=== PATIENT | female | born 1960 | race Caucasian/White ===

== ENCOUNTER → 2018-01-10 09:34 | Outpatient (CLI) | payer OTHER, SELFPAY ==
[2018-01-10 12:34] LABS: Thyroid Stim Hormone (TSH) 1.88 uIU/mL (0.358-3.74)
== END ==
PROVIDERS: Family Provider Family Medicine; PCP Family Medicine; Referring Provider Family Medicine; Visit Provider Family Medicine
DX: E03.9 Hypothyroidism, unspecified (principal)
CPT/HCPCS: 36415; 84443

== ENCOUNTER → 2018-02-16 08:04 | Outpatient (CLI) | payer OTHER, SELFPAY ==
--- NOTE | 2018-02-16 08:07 | BI_ITS ---
MAMMOGRAPHY - BILATERAL SCREENING REASON FOR EXAM: Female, 57 years old. Routine annual screening examination. PERTINENT HISTORY: Mother with breast cancer. TECHNIQUE: Digital bilateral breast dennis (3D mammographic acquisition) in the CC and MLO projections. 2-D mediolateral oblique (MLO) and craniocaudad (CC) views of both breasts were obtained. CAD: Full Field Digital Mammography with Computer Added Detection was performed. COMPARISON: Comparison is made with prior study dated January 24, 2017 and November 19, 2015. FINDINGS: Breast Composition: There are scattered areas of fibroglandular density. There are no dominant masses or suspicious calcifications. Stable 5 mm well-defined nodule in the upper deep lateral aspect of the left breast. This most likely represents a small left No other significant abnormalities are identified. There has been no significant change since the prior study. BI/SCREENING MAMM (CAD), BILAT IMPRESSION: Stable bilateral screening mammogram. Yearly follow-up mammogram recommended. (A) ASSESSMENT CATEGORY: BIRADS Category 2: Benign. A letter regarding these results will be sent to the patient by the facility within 30 days. Approximately 10% of breast cancers are not detected by mammography. A normal mammogram should not delay biopsy of a clinically suspicious abnormality. [id number] Electronically Signed: Kai Ho MD at 9:57 EST Tel [phone], Service support ,
== END ==
PROVIDERS: Family Provider Family Medicine; PCP Family Medicine; Referring Provider Obstetrics & Gynecology; Visit Provider Obstetrics & Gynecology
DX: Z12.31 Encounter for screening mammogram for malignant neoplasm of breast (principal)
CPT/HCPCS: 77063; 77067

== ENCOUNTER → 2019-01-31 | Outpatient (CLI) | payer OTHER, SELFPAY ==
[2017-04-25 09:29] VITALS: BMI 27.8
--- NOTE | 2019-01-31 09:54 | RAD_ITS ---
STUDY: X-RAY - LEFT FOOT CLINICAL: Female, 58 years old. Trauma TECHNIQUE: 3 view(s) of the foot. COMPARISON: None. FINDINGS: Normal talus, calcaneus, and tarsal bones. Normal visualized subtalar, talonavicular, calcaneocuboid, tarsal and tarsometatarsal articulations. Normal metatarsi. Normal metatarsophalangeal joint of the great toe. Normal tibial and fibular sesamoid bones. Normal interphalangeal joint of the great toe. Normal phalanges of the great toe. Normal second through fifth metatarsophalangeal joints. Normal interphalangeal joints and phalanges of the lesser toes. The soft tissue structures are unremarkable. RAD/Foot min 3 Views IMPRESSION: Normal x-ray examination of the foot. Electronically Signed: Jeremiah Bejarano MD at 23:13 EDT , Service support ,
== END | disposition home or self-care (01) ==
LOC: MTRAD 09:53
PROVIDERS: Family Provider Family Medicine; PCP Family Medicine; Referring Provider Family Medicine; Visit Provider Family Medicine
DX: S99.922A Unspecified injury of left foot, initial encounter (principal); W19.XXXA Unspecified fall, initial encounter
CPT/HCPCS: 73630

== ENCOUNTER → 2019-03-15 12:09 | Outpatient (CLI) | payer OTHER, SELFPAY ==
--- NOTE | 2019-03-15 12:11 | BI_ITS ---
MAMMOGRAPHY - BILATERAL SCREENING REASON FOR EXAM: Female, 58 years old. Routine annual screening examination. PERTINENT HISTORY: Mother with breast cancer. TECHNIQUE: Digital bilateral breast hawa (3D mammographic acquisition) in the CC and MLO projections. 2-D mediolateral oblique (MLO) and craniocaudad (CC) views of both breasts were obtained. CAD: Full Field Digital Mammography with Computer Added Detection was performed. COMPARISON: Comparison is made with prior study dated February 16, 2018 and January 24, 2017. FINDINGS: Breast Composition: There are scattered areas of fibroglandular density. There are no dominant masses or suspicious calcifications. Stable small benign-appearing bilateral axillary lymph nodes. No other significant abnormalities are identified. There has been no significant change since the prior study. BI/SCREEN MAMM (CAD) W/HAWA BILAT IMPRESSION: Stable bilateral screening mammogram. Yearly follow-up mammogram recommended. (A) ASSESSMENT CATEGORY: BIRADS Category 2: Benign. A letter regarding these results will be sent to the patient by the facility within 30 days. Approximately 10% of breast cancers are not detected by mammography. A normal mammogram should not delay biopsy of a clinically suspicious abnormality. [id number] Electronically Signed: Kai Ho, at 13:10 EST , Service support ,
== END ==
PROVIDERS: Family Provider Family Medicine; PCP Family Medicine; Referring Provider Obstetrics & Gynecology; Visit Provider Obstetrics & Gynecology
DX: Z12.31 Encounter for screening mammogram for malignant neoplasm of breast (principal)
CPT/HCPCS: 77063; 77067

== ENCOUNTER → 2019-04-19 08:45 | Outpatient (CLI) | payer OTHER, SELFPAY ==
[2017-04-25 09:29] VITALS: BMI 27.8
[2019-04-19 11:26] LABS: Anion Gap 5 (5-15); BUN 21 mg/dL (7-18); BUN/Creat Ratio 24.6 RATIO (10-20); Calcium,Total 9.3 mg/dL (8.5-10.1); Chloride 109 mmol/L (98-107); Cholesterol 196 mg/dL (200); Creatinine, Serum 0.85 mg/dL (0.55-1.02); EST Glomerular Filtration Rate 72 mL/min (>60); Est Glom Filt Rate - Afr Amer 87 mL/min (>60); Free T3 2.1 pg/mL (2.18-3.98); Glucose 84 mg/dL (74-106); High Density Lipoprotein 51 mg/dL; Sodium Level 142 mmol/L (136-145); T4 Total, Thyroxin 10.4 ug/dL (4.8-13.9); Thyroid Stim Hormone (TSH) 2.06 uIU/mL (0.358-3.74); Triglycerides 115 mg/dL; Very Low Density Lipoprotein 23 mg/dL (5-40)
== END ==
PROVIDERS: Family Provider Family Medicine; PCP Family Medicine; Referring Provider Family Medicine; Visit Provider Family Medicine
DX: E03.9 Hypothyroidism, unspecified (principal); E78.00 Pure hypercholesterolemia, unspecified
CPT/HCPCS: 36415; 80048; 80061; 84436; 84443; 84481

== ENCOUNTER → 2019-09-20 15:05 | Outpatient (CLI) | payer OTHER, SELFPAY ==
[2017-04-25 09:29] VITALS: BMI 27.8
[2019-09-20 18:12] LABS: Cholesterol 209 mg/dL (200); Free T3 2.1 pg/mL (2.18-3.98); High Density Lipoprotein 54 mg/dL; T4 Total, Thyroxin 9.4 ug/dL (4.8-13.9); Thyroid Stim Hormone (TSH) 2.64 uIU/mL (0.358-3.74); Triglycerides 186 mg/dL; Very Low Density Lipoprotein 37 mg/dL (5-40)
== END ==
PROVIDERS: PCP Family Medicine; Visit Provider Family Medicine
DX: E03.9 Hypothyroidism, unspecified (principal); E78.00 Pure hypercholesterolemia, unspecified
CPT/HCPCS: 36415; 80061; 84436; 84443; 84481

== ENCOUNTER 2020-03-25 08:42 | Emergency (ER) | payer OTHER, SELFPAY ==
[2020-03-25 08:42] VITALS: BP 141/78; PULSE 68; RESP 13; TEMP 36.6; O2SAT 100; BMI 26.0
--- NOTE | 2020-03-25 08:53 | EKG12_ITS ---
Test Reason : CP Blood Pressure : / mmHG Vent. Rate : 065 BPM Atrial Rate : 065 BPM P-R Int : 164 ms QRS Dur : 088 ms QT Int : 376 ms P-R-T Axes : 052 059 061 degrees QTc Int : 391 ms Normal sinus rhythm Normal ECG Confirmed by PRITI GOYAL, CHANDANA ([id number]), field map editor LENORE CARMONA ([id number]) on 04/01/2020 10:23:59 AM Referred By: [place] Confirmed By:SACHA MARCOS MD
--- NOTE | 2020-03-25 08:53 | CT_ITS ---
STUDY: CT BRAIN WITHOUT CONTRAST REASON FOR EXAM: Female, 59 years old. VERTIGO-FALLING TO THE LEFT DIZZINESS/CHEST HEAVY RADIATION DOSAGE (If Supplied By Facility): CTDIvol = ( 44.99 ) mGy, DLP = ( 796.11 ) mGycm TECHNIQUE: Transaxial CT imaging of the brain was performed without administration of intravenous contrast material. Individualized dose optimization techniques were used for this CT. COMPARISON: 04/25/2017 FINDINGS: Normal soft tissue structures. Normal calvarium. Normal size ventricles and extra-axial spaces for the patient''s age. Normal white matter tracts of the cerebral hemispheres. Normal basal ganglia and thalami. Normal brainstem. Normal cerebellum. There is no intracranial hemorrhage. There are no findings of an acute ischemic infarction. Normal visualized paranasal sinuses. CT/Brain/Head without Contrast IMPRESSION: Normal unenhanced CT scan of the brain. Electronically Signed: Ollie Spicer MD at 9:31 EST Tel , Service support ,
[2020-03-25 09:05] LABS: Absolute Lymphocyte Count 1.28 X10^3/uL (0.83-4.51); Absolute Neutrophil Count 2.8 X10^3/uL (2.0-7.7); Basophil# 0.05 X10^3/uL; Eosinophil# 0.17 X10^3/uL; Eosinophils% 3.4 % (0-5); Hematocrit 43.2 % (37-47); Hemoglobin 13.8 g/dL (12.0-15.0); Lymphocyte # 1.28 X10^3/ul (4.0); Mean Corp Hgb Conc 31.9 g/dL (32-36); Mean Corpuscular Hgb 32.2 pg (27.0-32.0); Mean Corpuscular Volume 100.7 fL (81-99); Mean Platelet Vol. 9.2 fl (6.2-12.0); Monocyte# 0.61 X10^3/uL; Monocyte% 12.4 % (0-10); NRBC Flagged by Analyzer 0 % (0-5); Neutrophil # 2.82 X10^3/uL (2.7-7.7); Neutrophil % 57.2 % (47-70); Platelet Count 188 K/mm3 (150-450); RBC Distribution Width CV 12.7 % (11.6-14.6); RBC Distribution Width SD 47.5 fl (35.1-43.9); Red Blood Count 4.29 M/mm3 (4.2-5.4); White Blood Count 4.9 K/mm3 (4.4-11.0)
[2020-03-25 09:20] LABS: Anion Gap 3 (5-15); BUN 22 mg/dL (7-18); BUN/Creat Ratio 23.6 RATIO (10-20); Calcium,Total 9.5 mg/dL (8.5-10.1); Chloride 108 mmol/L (98-107); Creatinine, Serum 0.93 mg/dL (0.55-1.02); EST Glomerular Filtration Rate 65 mL/min (>60); Est Glom Filt Rate - Afr Amer 79 mL/min (>60); Estimated Creatinine Clearance 54.86 ml/min; Glucose 91 mg/dL (74-106); Potassium 3.9 mmol/L (3.5-5.1); Sodium Level 141 mmol/L (136-145)
[2020-03-25 09:42] VITALS: BP 149/87; PULSE 73; RESP 14; O2SAT 99
--- NOTE | 2020-03-25 09:45 | ED.DCSUM_ITS ---
History of Present Illness Chief Complaint: Chest Pain Detail of Chief Complaint: Dizziness, near syncope/syncope chest pain and numbness left hand Informant: Patient Onset: Today Context: Sudden Onset Timing: Intermittent Quality: Spinning and sensation of falling to the left with other symptoms previousl Location: Driving her vehicle Current Severity: - - Resolved Maximum Severity: Moderate Worsened by: Nothing Relieved by: Nothing Associated Symptoms: Vision went black is an additional symptom Narrative: Patient is a 59-year-old woman with history of hypothyroidism and hypercholesterolemia who presents because she developed abrupt onset of spinning sensation and sensation of falling to the left while driving. She states her vision went black. She then developed numbness in her left hand followed by a sharp stabbing midsternal chest discomfort without radiation. The chest discomfort was associated with shortness of breath. She denied nausea or vomiting. She denied diaphoresis. She denies history of coronary disease. She denies history of TIA or CVA. She was by herself. She is uncertain whether she had change in speech. She denies difficulty swallowing or breathing. She denies history of peripheral arterial disease. Presently she has no symptoms. Prior similar symptoms: Yes - Feeling lightheaded with change in vision remote past Recent Illness/Hospitalization: No - Past Medical History (1) Hyperlipidemia Status: Chronic (2) Colitis Status: Resolved (3) Hypothyroidism Status: Chronic Past Medical History - Allergies and Home Meds Allergies/Adverse Reactions: Allergies No Known Allergies Allergy (Verified 03/25/20 08:44) Primary Care Physician: Chago Valles MD [Primary Care Provider] - Prior records reviewed: Yes Surgical History: - - colonoscopy in the past, hysterectemy. Lives: Spouse/ Significant Other Smoking Status: Never smoker Alcohol: None Drugs: None - Family History Maternal Family History: Reports: Diabetes, Heart Disease Paternal Family History: Reports: - - emphysema in father who smoked. Review of Systems General: Denies: Chills, Fever, Malaise, Subjective Eyes: Reports: - - Her vision went black biocular. Denies: Visual changes - bilaterally, Blurred Vision - bilaterally, Diplopia ENT: Reports: - - She denies decreased hearing or ringing in her ears.. Denies: Bilateral ear pain, Rhinorrhea, Sore throat Cardiovascular: Reports: Chest pain. Denies: Palpitations, Heart racing Respiratory: Reports: Dyspnea. Denies: Cough, Sputum, Dyspnea on exertion, Orthopnea, Paroxysmal nocturnal dyspnea Gastrointestinal: Denies: Abdominal pain, Vomiting, Diarrhea, Melena, Hematochezia Musculoskeletal: Denies: Myalgias, Arthralgias, Neck pain, Back pain, Swelling, Extremity Pain Skin: Denies: Rash, Wounds Neurological: Reports: Parasthesia - Left hand only. Denies: Headache, W eakness, Numbness Psych: Denies: Depression Endocrine: Denies: Polyuria, Polydipsia Hematologic: Denies: Easy bruising Physical Exam Vital Signs/Narrative: Vital Signs Temp Pulse Resp BP Pulse Ox 03/25/20 08:42 98 F 68 13 141/78 H 100 Inital Vital Signs reviewed: Yes General: Well nourished, Well developed, No Acute Distress Head: Normocephalic, Atraumatic Eyes: Perrl, EOMI. Negative for: Pale conjunctiva, Scleral icterus ENT: Moist mucous membranes, No rhinorrhea. Negative for: Nasal congestion, Sinus tenderness Neck: Supple, Nontender, No lymphadenopathy, No JVD Cardiovascular: Regular rate, Regular rhythm, No murmurs Respiratory: No distress, CTA bilaterally, Chest nontender Abdomen: Soft, Nontender, Nondistended, Normal bowel sounds, No masses. Negative for: Hepatomegaly, Splenomegaly, Pulsatile mass Rectal: Deferred Back: Nontender, Normal Inspection. Negative for: CVA tenderness Extremities: Negative for: Nontender, No edema, Calf Tenderness Skin: Normal color, No rash, No Trauma. Negative for: Cyanosis, Diaphoresis, Jaundice Neurological: Alert, Oriented x3, Cranial nerves II-XII grossly intact, Normal Strength, Normal Sensation, Normal DTR - There is no clonus or Babinski sign., Normal Gait, - - NIH is 0. Psychological: Normal affect Diagnostic/Tx/Re-eval Impressions Brain CT 03/25/20 08:53 IMPRESSION: Normal unenhanced CT scan of the brain. Electronically Signed: Ollie Spicer MD at 9:31 EST Tel , Service support , 03/25/20 08:53 Brain/Head without Contrast [CT] Stat Laboratory Results 03/25/20 03/25/20 08:55 08:55 WBC 4.9 RBC 4.29 Hgb 13.8 Hct 43.2 MCV 100.7 H MCH 32.2 H MCHC 31.9 L RDW Std Deviation 47.5 H RDW Coeff of Rosendo 12.7 Plt Count 188 MPV 9.2 Immature Gran % (Auto) 0.000 Neut % (Auto) 57.2 Lymph % (Auto) 26.0 [place] % (Auto) 12.4 H Eos % (Auto) 3.4 Baso % (Auto) 1.0 Absolute Neuts (auto) 2.8 Absolute Lymphs (auto) 1.28 Nucleated RBC % 0 Sodium 141 Potassium 3.9 Chloride 108 H Carbon Dioxide 30.0 Anion Gap 3 L BUN 22 H Creatinine 0.93 Estim Creat Clear Calc 54.86 Est GFR (MDRD) Af Amer 79 Est GFR (MDRD) Non-Af 65 BUN/Creatinine Ratio 23.6 H Glucose 91 Calcium 9.5 Troponin I < 0.015 ET of the head neck was negative for dissection or any evidence of atherosclero tic vascular disease. Since her vessels are wide open will discharge to home. She has an appointment to see Dr. Valles tomorrow. She is taking a baby aspirin a day. - EKG Initial EKG Interpretation: Sinus Rhythm - Normal sinus rhythm with ventricular rate of 65. TN intervals under 64 ms. Cures duration 88 ms. QT duration 376 ms. Jackson is normal. The EKG is normal. - Medical Decision Making Presents with transient vertigo. It is not positional. She also reported paresthesia of her left hand associate with chest pain. This may represent posterior vertebral EMEA. With complaint of chest pain need to rule out cardiac versus noncardiac etiology. Since pain did not radiate through the back and pulses are symmetric upper and lower extremity as well as right to left doubt aortic dissection. CT of the head was obtained and there is no evidence of hemorrhage or acute ischemic findings. First troponin is normal. EKG was normal. She was symptom-free when the EKG was performed. ED Disposition - Plan for ED Patient: Disposition: Acute [facility] Diagnosis: Vertigo, Left hand paresthesia, Atypical chest pain Instructions: ED Vertigo, Unspecified, ED Paraesthesias, ED Chest Pain, Uncertain Cause Referrals: Chago Valles MD [Primary Care Provider] - Keep Janessa appointment
--- NOTE | 2020-03-25 09:55 | CT_ITS ---
STUDY: CTA HEAD AND NECK WITH CONTRAST REASON FOR EXAM: Female, 59 years old. CHEST HEAVINESS AND DIZZINESS WHILE DRIVING. NUMBNESS LT HAND, SPINNING SENSATION, VISION WENT BLACK. RADIATION DOSAGE (If Supplied By Facility): CTDIvol = ( 17.140 ) mGy, DLP = ( 663.88 ) mGycm TECHNIQUE: CT angiography was performed with a multi-detector CT scanner. Data acquisition was obtained from the skull base through the vertex following intravenous administration of IV 100mL Isovue-370. MIP images were reconstructed from the axial data set. Post-processing of the angiographic images was performed, with multiplanar reformation and 3D reconstruction. Individualized dose optimization techniques were used for this CT. COMPARISON: No relevant priors. FINDINGS: Normal bilateral petrous carotid arteries. There is calcified plaque formation of the right cavernous carotid artery, without a cross-sectional luminal stenosis. There is calcified plaque formation of the left cavernous carotid artery, without a cross-sectional luminal stenosis. Normal right A1 segments of the anterior cerebral artery. Normal left A1 segments of the anterior cerebral artery. Normal intact anterior communicating artery (ACOM). Normal bilateral A2 segments of the anterior cerebral arteries. 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 Normal right M1 and M2 segments of the middle cerebral arteries, with a normal M1 bifurcation. Normal left M1 and M2 segments of the middle cerebral arteries, with a normal M1 bifurcation. Normal right posterior communicating artery (PCOM). Normal left posterior communicating artery (PCOM). Normal bilateral vertebral arteries. Normal basilar artery with a normal basilar bifurcation. The visualized bilateral superior cerebellar (SCA) arteries are normal. Normal bilateral P1, P2 and visualized P3 segments of the posterior cerebral arteries. Duplicated right posterior cerebral artery through a persistent origin. There is no demonstrated aneurysm of the [place] of [place]. There is no demonstrated abnormality of the visualized brain. AORTIC ARCH: Normal visualized aortic arch. Normal origins of the brachiocephalic, left common carotid, and left subclavian arteries. RIGHT CAROTID ARTERIES: Normal right common carotid artery (CCA). There is mild atherosclerotic plaque formation with minimal narrowing of the right carotid bulb. Normal origin of the right internal carotid (ICA) artery without a hemodynamically significant stenosis. Normal visualized cervical portion of the right internal carotid artery. Normal origin of the right external carotid artery (ECA). LEFT CAROTID ARTERIES: Normal left common carotid artery (CCA). Normal left common carotid bulb. Normal origin of the left internal carotid (ICA) artery without a hemodynamically significant stenosis. Normal visualized cervical portion of the left internal carotid artery. Normal origin of the left external carotid artery (ECA). VERTEBRAL ARTERIES: Normal bilateral vertebral arteries. CT/CTA Head AND Neck W/ Contrast IMPRESSION: Normal CTA Head and neck with contrast. Electronically Signed: Ollie Spicer MD at 10:46 EST Tel , Service support ,
[2020-03-25 10:00] VITALS: BP 148/85; PULSE 83; RESP 18; O2SAT 100
[2020-03-25 11:36] VITALS: BP 149/85; PULSE 71; RESP 18; O2SAT 99
== END 2020-03-25 11:37 | disposition home or self-care (01) ==
PROVIDERS: Emergency Provider Emergency Medicine; PCP Family Medicine
DX: R42 Dizziness and giddiness (principal); R20.2 Paresthesia of skin; R07.89 Other chest pain
CPT/HCPCS: 70450; 70496; 70498; 80048; 84484; 85025; 93005; 99284; Q9967; A4216

== ENCOUNTER → 2020-03-26 08:30 | Outpatient (CLI) | payer OTHER, SELFPAY ==
[2020-03-25 08:42] VITALS: BMI 26.0
[2020-03-26 11:04] LABS: Thyroid Stim Hormone (TSH) 2.22 uIU/mL (0.358-3.74)
== END ==
PROVIDERS: PCP Family Medicine; Referring Provider Family Medicine; Visit Provider Family Medicine
DX: E03.9 Hypothyroidism, unspecified (principal)
CPT/HCPCS: 36415; 84443

== ENCOUNTER → 2020-08-07 13:57 | Outpatient (CLI) | payer OTHER, SELFPAY ==
[2020-08-07 16:08] LABS: ALB/GLOB Ratio 1.4 RATIO (0.9-2.4); AST(SGOT) 27 U/L (15-37); Alanine Aminotransfer ALT/SGPT 55 U/L (13-56); Albumin, Serum 4.2 g/dL (3.2-5.0); Alkaline Phosphatase 56 U/L (45-117); Anion Gap 5 (5-15); BUN 18 mg/dL (7-18); BUN/Creat Ratio 22.3 RATIO (10-20); Calcium,Total 9.3 mg/dL (8.5-10.1); Chloride 105 mmol/L (98-107); Cholesterol 212 mg/dL (200); Creatinine, Serum 0.81 mg/dL (0.55-1.02); EST Glomerular Filtration Rate 77 mL/min (>60); Est Glom Filt Rate - Afr Amer 93 mL/min (>60); Free T3 2.3 pg/mL (2.18-3.98); Globulin 3.1 g/dL (2.2-4.2); Glucose 68 mg/dL (74-106); High Density Lipoprotein 57 mg/dL; Potassium 4.4 mmol/L (3.5-5.1); Protein, Total 7.3 g/dL (6.4-8.2); Sodium Level 139 mmol/L (136-145); T4 Free Direct 1.08 ng/dL (0.76-1.46); Thyroid Stim Hormone (TSH) 1.53 uIU/mL (0.358-3.74); Triglycerides 115 mg/dL; Very Low Density Lipoprotein 23 mg/dL (5-40)
== END ==
PROVIDERS: PCP Family Medicine; Referring Provider Family Medicine; Visit Provider Family Medicine
DX: E03.9 Hypothyroidism, unspecified (principal); E78.00 Pure hypercholesterolemia, unspecified
CPT/HCPCS: 36415; 80053; 80061; 84439; 84443; 84481

== ENCOUNTER → 2020-09-11 07:52 | Outpatient (CLI) | payer OTHER, SELFPAY ==
--- NOTE | 2020-09-11 07:55 | BI_ITS ---
MAMMOGRAPHY - BILATERAL SCREENING REASON FOR EXAM: Female, 60 years old. Routine annual screening examination. PERTINENT HISTORY: Mother with breast cancer. TECHNIQUE: Digital bilateral breast hawa (3D mammographic acquisition) in the CC and MLO projections. 2-D mediolateral oblique (MLO) and craniocaudad (CC) views of both breasts were obtained. CAD: Full Field Digital Mammography with Computer Added Detection was performed. COMPARISON: Comparison is made with prior study dated 03/15/2019 and 02/16/2018. FINDINGS: Breast Composition: There are scattered areas of fibroglandular density. There are no dominant masses or suspicious calcifications. Stable small benign-appearing bilateral axillary lymph nodes. No other significant abnormalities are identified. There has been no significant change since the prior study. BI/SCRN MAMM (CAD)W/HAWA BILAT IMPRESSION: Stable bilateral screening mammogram. Yearly follow-up mammogram recommended. (A) ASSESSMENT CATEGORY: BIRADS Category 2: Benign. A letter regarding these results will be sent to the patient by the facility within 30 days. Approximately 10% of breast cancers are not detected by mammography. A normal mammogram should not delay biopsy of a clinically suspicious abnormality. [id number] Electronically Signed: Kai Ho MD at 8:49 EDT , Service support ,
== END ==
PROVIDERS: PCP Family Medicine; Referring Provider Obstetrics & Gynecology; Visit Provider Obstetrics & Gynecology
DX: Z12.31 Encounter for screening mammogram for malignant neoplasm of breast (principal)
CPT/HCPCS: 77063; 77067

== ENCOUNTER → 2020-11-26 08:04 | Outpatient (CLI) | payer OTHER, SELFPAY ==
[2020-11-26 11:42] LABS: ALB/GLOB Ratio 1.3 RATIO (0.9-2.4); AST(SGOT) 28 U/L (15-37); Alanine Aminotransfer ALT/SGPT 61 U/L (13-56); Alkaline Phosphatase 51 U/L (45-117); Anion Gap 6 (5-15); BUN 20 mg/dL (7-18); Chloride 106 mmol/L (98-107); Cholesterol 197 mg/dL (200); Creatinine, Serum 0.77 mg/dL (0.55-1.02); EST Glomerular Filtration Rate 81 mL/min (>60); Est Glom Filt Rate - Afr Amer 98 mL/min (>60); Free T3 2.4 pg/mL (2.18-3.98); Glucose 86 mg/dL (74-106); High Density Lipoprotein 53 mg/dL; Sodium Level 139 mmol/L (136-145); T4 Free Direct 1.04 ng/dL (0.76-1.46); Triglycerides 157 mg/dL; Very Low Density Lipoprotein 31 mg/dL (5-40)
== END ==
PROVIDERS: PCP Family Medicine; Referring Provider Family Medicine; Visit Provider Family Medicine
DX: E03.9 Hypothyroidism, unspecified (principal); E78.00 Pure hypercholesterolemia, unspecified
CPT/HCPCS: 36415; 80053; 80061; 84439; 84443; 84481

== ENCOUNTER 2021-07-12 08:09 | Outpatient (CLI) | payer OTHER, SELFPAY ==
[2021-07-12 11:09] LABS: ALB/GLOB Ratio 1.3 RATIO (0.9-2.4); AST(SGOT) 25 U/L (15-37); Alanine Aminotransfer ALT/SGPT 61 U/L (13-56); Albumin, Serum 3.8 g/dL (3.2-5.0); Alkaline Phosphatase 51 U/L (45-117); Anion Gap 3 (5-15); BUN 21 mg/dL (7-18); BUN/Creat Ratio 23.8 RATIO (10-20); Calcium,Total 9.1 mg/dL (8.5-10.1); Chloride 110 mmol/L (98-107); Cholesterol 174 mg/dL (200); Creatinine, Serum 0.88 mg/dL (0.55-1.02); EST Glomerular Filtration Rate 69 mL/min (>60); Est Glom Filt Rate - Afr Amer 83 mL/min (>60); Free T3 2.8 pg/mL (2.18-3.98); Glucose 95 mg/dL (74-106); High Density Lipoprotein 54 mg/dL; Potassium 3.9 mmol/L (3.5-5.1); Protein, Total 6.8 g/dL (6.4-8.2); Sodium Level 141 mmol/L (136-145); T4 Free Direct 0.81 ng/dL (0.76-1.46); Thyroid Stim Hormone (TSH) 2.18 uIU/mL (0.358-3.74); Triglycerides 116 mg/dL; Very Low Density Lipoprotein 23 mg/dL (5-40)
== END 2021-07-12 23:59 | disposition home or self-care (01) ==
PROVIDERS: PCP Family Medicine; Visit Provider Family Medicine
DX: E78.00 Pure hypercholesterolemia, unspecified (principal); E03.9 Hypothyroidism, unspecified
CPT/HCPCS: 36415; 80053; 80061; 84439; 84443; 84481

== ENCOUNTER → 2021-09-17 | Outpatient (CLI) | payer OTHER, SELFPAY ==
--- NOTE | 2021-09-17 13:41 | BI_ITS ---
MAMMOGRAPHY - BILATERAL SCREENING REASON FOR EXAM: Female, 61 years old. Routine annual screening examination. PERTINENT HISTORY: Mother with breast cancer. TECHNIQUE: Digital bilateral breast hawa (3D mammographic acquisition) in the CC and MLO projections. 2-D mediolateral oblique (MLO) and craniocaudad (CC) views of both breasts were obtained. CAD: Full Field Digital Mammography with Computer Added Detection was performed. COMPARISON: Mammogram from 09/11/2020, 03/15/2019, 02/16/2018, 01/24/2017 FINDINGS: Breast Composition: There are scattered areas of fibroglandular density. There are no dominant masses or suspicious calcifications. Stable small benign-appearing bilateral axillary lymph nodes. No other significant abnormalities are identified. There has been no significant change since the prior study. BI/SCRN MAMM (CAD)W/HAWA BILAT IMPRESSION: Stable bilateral screening mammogram. Yearly follow-up mammogram recommended. (A) ASSESSMENT CATEGORY: BIRADS Category 2: Benign. A letter regarding these results will be sent to the patient by the facility within 30 days. Approximately 10% of breast cancers are not detected by mammography. A normal mammogram should not delay biopsy of a clinically suspicious abnormality. [id number] Electronically Signed: Billy Baker, at 8:38 EDT ,
== END | disposition home or self-care (01) ==
LOC: OPBI 13:40
PROVIDERS: PCP Family Medicine; Referring Provider Obstetrics & Gynecology; Visit Provider Obstetrics & Gynecology
DX: Z12.31 Encounter for screening mammogram for malignant neoplasm of breast (principal)
CPT/HCPCS: 77063; 77067

== ENCOUNTER → 2022-01-04 | Outpatient (CLI) | payer OTHER, SELFPAY ==
--- NOTE | 2022-01-04 08:31 | STRESSREP_ITS ---
Stress Test Report Date: 01-04-2022 Procedure: Exercise tolerance test/imaging study Indications: Chest pain; shortness of breath/dyspnea with exertion Consent: Per the patient Procedure: The patient exercised on a Luis protocol for 7 minutes and 31 seconds completing Stage II and 1 minute and 31 seconds of Stage III achieving a peak heart rate of 137 bpm (87% predicted maximal heart rate) with a peak blood pressure 158/80 mmHg and a peak MET capacity of 9 METs. The baseline ECG demonstrated normal sinus rhythm. The peak exercise ECG demonstrated somatic/motion artifact with approximately [address] segment depression in leads II, III, and aVF with gradual resolution towards baseline in recovery. There were no cardiac dysrhythmias pretest, during exercise, or recovery. The functional capacity was considered good. There was chest tightness and shortness of breath at peak exercise. The examination was discontinued secondary to chest tightness and shortness of breath. Impression: 1. Technically adequate (percent predicted maximal heart rate greater than 85%) exercise tolerance test 2. Peak exercise ECG demonstrated somatic/motion artifact with approximately [address] segment depression in leads II, III, and aVF with gradual resolution towards baseline in recovery 3. There were no cardiac dysrhythmias pretest, during exercise, or recovery 4. Nuclear images pending Myocardial perfusion imaging study: Technique: The patient was injected with 12.0 mCi of technetium 99m Cardiolite and subsequently rest SPECT Cardiolite nuclear imaging was obtained in the horizontal long, vertical long, and short axis views. The patient exercised on a Luis protocol for 7 minutes and 31 seconds completing Stage II and 1 minute and 31 seconds of Stage III achieving a peak heart rate of 137 bpm (87% predicted maximal heart rate) with a peak blood pressure 158/80 mmHg and a peak MET capacity of 9 METs. The patient was injected with 34.3 mCi of technetium 99m Cardiolite and subsequently stress SPECT Cardiolite nuclear imaging was obtained in the horizontal long, vertical long, and short axis views. A gated Cardiolite study at peak stress was obtained. Interpretation: Rest and stress SPECT Cardiolite nuclear imaging status post realignment, normalization, and attenuation correction, demonstrates the appearance of relative uniform tracer uptake and myocardial perfusion appearing within normal limits. There is end systolic thickening and brightening. The gated Cardiolite study demonstrates myocardial thickening and inward wall motion. The reported LVEF is 74%. Impression: 1. Rest and stress SPECT Cardiolite nuclear imaging demonstrate relative uniform tracer uptake and myocardial perfusion appearing within normal limits. 2. The gated Cardiolite study reports an LVEF of 74%. This note was generated with [employer] software. It may contain incorrect words, spelling, and punctuation that were not noted in checking the note before signing.
== END | disposition home or self-care (01) ==
PROVIDERS: PCP Family Medicine; Referring Provider Family Medicine; Visit Provider Family Medicine
DX: R06.02 Shortness of breath (principal)
CPT/HCPCS: 78452; 93017; A9500; A4216

== ENCOUNTER → 2022-03-25 | Outpatient (CLI) | payer OTHER, SELFPAY ==
[2022-03-25 10:32] LABS: ALB/GLOB Ratio 1.3 RATIO (0.9-2.4); AST(SGOT) 22 U/L (15-37); Alanine Aminotransfer ALT/SGPT 57 U/L (13-56); Albumin, Serum 3.6 g/dL (3.2-5.0); Alkaline Phosphatase 52 U/L (45-117); Anion Gap 6 (5-15); BUN 20 mg/dL (7-18); Calcium,Total 8.7 mg/dL (8.5-10.1); Chloride 108 mmol/L (98-107); Cholesterol 187 mg/dL (200); Creatinine, Serum 0.91 mg/dL (0.55-1.02); EST Glomerular Filtration Rate 66 mL/min (>60); Est Glom Filt Rate - Afr Amer 80 mL/min (>60); Free T3 2.4 pg/mL (2.18-3.98); Globulin 2.7 g/dL (2.2-4.2); Glucose 94 mg/dL (74-106); High Density Lipoprotein 55 mg/dL; Potassium 4.2 mmol/L (3.5-5.1); Protein, Total 6.3 g/dL (6.4-8.2); Sodium Level 142 mmol/L (136-145); T4 Free Direct 0.87 ng/dL (0.76-1.46); Thyroid Stim Hormone (TSH) 2.83 uIU/mL (0.358-3.74); Triglycerides 122 mg/dL; Very Low Density Lipoprotein 24 mg/dL (5-40)
== END | disposition home or self-care (01) ==
LOC: MFPLAB 08:22
PROVIDERS: PCP Family Medicine; Referring Provider Family Medicine; Visit Provider Family Medicine
DX: E03.9 Hypothyroidism, unspecified (principal); E78.00 Pure hypercholesterolemia, unspecified
CPT/HCPCS: 36415; 80053; 80061; 84439; 84443; 84481

== ENCOUNTER → 2022-10-21 | Outpatient (CLI) | payer BC, SELFPAY ==
--- NOTE | 2022-10-21 14:46 | BI_ITS ---
MAMMOGRAPHY - BILATERAL SCREENING 3-D TOMOSYNTHESIS REASON FOR EXAM: Female, 62 years old. Routine screening PERTINENT HISTORY: Mother with breast cancer.. TECHNIQUE: 2-D mammograms and 3-D Tomosynthesis of the breast (s) were performed. CAD was performed. COMPARISON: 09/11/2020 FINDINGS: The breast composition is composed of scattered fibroglandular density. Scattered benign calcifications are seen. No dense spiculated masses or suspicious microcalcifications are identified. No architectural distortion is identified. There is no skin thickening or retraction. Stable 5 mm well-defined nodule in the upper outer quadrant of the left breast. There has been no significant change since the prior study. BI/SCRN MAMM (CAD)W/HAWA BILAT IMPRESSION: No mammographic signs of malignancy. Routine yearly mammograms recommended. ASSESSMENT CATEGORY: BIRADS Category 1: Negative. A letter regarding these results will be sent to the patient by the facility within 30 days. FOLLOW UP RECOMMENDATION: Yearly follow up mammogram recommended. (A) Approximately 10% of breast cancers are not detected by mammography. A normal mammogram should not delay biopsy of a clinically suspicious abnormality. Electronically Signed: Mikel Woo MD at 9:32 EDT ,
== END | disposition home or self-care (01) ==
LOC: OPBI 14:40
PROVIDERS: PCP Family Medicine; Referring Provider Obstetrics & Gynecology; Visit Provider Obstetrics & Gynecology
DX: Z12.31 Encounter for screening mammogram for malignant neoplasm of breast (principal)
CPT/HCPCS: 77063; 77067

== ENCOUNTER → 2023-05-31 | Outpatient (CLI) | payer BC, SELFPAY ==
--- NOTE | 2023-05-31 17:08 | RAD_ITS ---
STUDY: X-RAY - RIGHT SHOULDER REASON FOR EXAM: Female, 62 years old. PAIN TECHNIQUE: 4 view(s) of the shoulder. COMPARISON: None. FINDINGS: There is mild degenerative arthrosis of the glenohumeral articulation. There is mild degenerative arthrosis of the acromioclavicular joint without inferior osseous spur formation. Normal acromion. Possible osteopenia. Normal humeral head and visualized proximal humerus. The soft tissue structures are unremarkable. There is no demonstrated fracture. Normal visualized pulmonary apex. RAD/Shoulder min 2 Views IMPRESSION: Osteopenia with mild degenerative disease. No acute fracture or subluxation. Electronically Signed: Renée Cosme MD at 21:06 [facility] ,
--- OUTSIDE RECORDS SUMMARY | 2023-05-31 19:56 | XMS RPT_ITS | CCD ---
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 Name Role Phone TANISHA Unavailable Unavailable TANISHA Unavailable Unavailable TANISHA Unavailable Unavailable BRIANDA WHITMAN MD Unavailable Unavailable PROVIDER, UNKNOWN Unavailable Unavailable Vandana Nice Primary Care Provider [phone] Vandana Nice Primary Care Provider Chago Valles MD Primary Care Provider [phone] JOHANA GOLDMAN Attending Unavail able VANDANA NICE Primary Care Unavailable Allergies Allergy Classification Reported Allergen(s) Allergy Type Date of Onset Reaction(s) Facility (5 sources) Pethidine analog; Translations: [OPIOIDS-MEPERID INE AND RELATED] Drug Intolerance 1 Intolerance [facility] Work Phone: Medications Completed/Discontinued Medications Medication Drug Class(es) Dates Sig (Normalized) Sig (Original) ascorbic acid 100 mg oral tablet (4 sources) Vitamin C take 1 tablet by once daily Ascorbic Acid (VITAMIN C) 100 mg tablet Take 100 mg by mouth once daily. 0 Active Problems Problem Classification Problem Date Documented Da te Episodic/Chronic Other screening for suspected conditions (not mental disorders or infectious disease) (4 sources) Patient encounter status; Translations: [Encounter for screening mammogram for malignant neoplasm of breast] Episodic Results Test Name Value Interpretation Reference Range Facil ity Vital Signs Date Time Vital Sign Value Performing Clinician Faci litluna 02-23-2023 11:19-0500 Body height 162.6 cm Johana Hagen MD Work Phone: [facility] 02-23-2023 11:19-0500 Body weight 69.85 kg Johana Hagen MD Work Phone: [facility] 02-23-2023 11:19-0500 Diastolic blood pressure 82 mm[Hg] Johana Hagen MD Work Phone: [facility] 02-23-2023 11:19-0500 Systolic blood pressure 132 mm[Hg] Johana Hagen MD Work Phone: [facility] 08-27-2021 09:36-0400 Body height 162.6 cm Johana Hagen MD Work Phone: [facility] 08-27-2021 09:36-0400 Body weight 74.84 kg Johana Hagen MD Work Phone: [facility] 08-27-2021 09:36-0400 Diastolic blood pressure 84 mm[Hg] Johana Hagen MD Work Phone: [facility] 08-27-2021 09:36-0400 Systolic blood pressure 126 mm[Hg] Johana Hagen MD Work Phone: [facility] Encounters Encounter Date Encounter Type Care Provider Facility Start: 02-24-2023 Telephone encounter Johana Hagen MD Work Phone: [facility] [place] Procedures Date Procedure Procedure Detail Performing Clinician Start: 09-17-2021 Mammography Johana Hagen MD Work Phone: Start: 09-11-2020 Mammography Johana Hagen MD Work Phone: Plan of Treatment Date Care Activity Detail Author Start: 10-03-2024 COLOGUARD (FIT-DNA) COLOGUARD (FIT-DNA) [facility] Start: 10-03-2024 COLORECTAL CANCER SCREENING COLORECTAL CANCER SCREENING [facility] Start: 10-22-2023 Mammography Mammogram Screening [facility] Start: 12-09-2022 Covid-19 Vaccine () Covid-19 Vaccine () [facility] Start: 12-09-2022 Influenza vaccination [facility] Start: 09-17-2022 Mammography MAMMOGRAM [facility] Start: 04-10-2022 DEPRESSION ASSESSMENT DEPRESSION ASSESSMENT [facility] Start: 12-09-2021 Influenza [facility] Start: 10-08-2021 COVID-19 VACCINE (5 - Booster for Moderna series) COVID-19 VACCINE (5 - Booster for Moderna series) [facility] Start: 09-11-2021 Mammography MAMMOGRAM [facility] Start: 03-20-2020 Shingrix Vaccine (2 of 2) Shingrix Vaccine (2 of 2) [facility] Start: 2018 RSV Vaccine (1 - 1-dose 60+ series) RSV Vaccine (1 - 1-dose 60+ series) [facility] Start: 2008 SHINGRIX VACCINE (1 of 2) SHINGRIX VACCINE (1 of 2) [facility] Start: 07-29-2003 COLOGUARD (FIT-DNA) COLOGUARD (FIT-DNA) [facility] Start: 07-29-2003 Colonoscopy COLONOSCOPY [facility] Start: 07-29-2003 COLORECTAL CANCER SCREENING COLORECTAL CANCER SCREENING [facility] Start: 07-29-[address] COLONOGRAPHY [facility] Start: 07-29-2003 DIABETES SCREEN DIABETES SCREEN [facility] Start: 07-29-2003 Diabetes Screening Diabetes Screening [facility] Start: 07-29-2003 FECAL OCCULT BLOOD FECAL OCCULT BLOOD [facility] Start: 07-29-2003 Lipid 1996 panel - Serum or Plasma Lipid Screening [facility] Start: 07-29-2003 LIPID SCREEN LIPID SCREEN [facility] Start: 07-29-2003 SIGMOIDOSCOPY SIGMOIDOSCOPY [facility] Start: 1988 HPV TESTING HPV TESTING [facility] Start: 07-29-1979 PAP TESTING PAP TESTING [facility] Start: 1977 Urine microalbumin profile [facility] Start: 1976 HEPATITIS C SCREENING HEPATITIS C SCREENING [facility] Start: 1976 HIV SCREENING HIV SCREENING [facility] Start: 1970 Adult depression screening assessment DEPRESSION SCREENING [facility] COLOGUARD COLOGUARD Lab Ro utine Encounter for screening for malignant neoplasm of colon Ordered: 08/27/2021 [facility] Work Phone: Immunizations Immunization Date Immunization Notes Care Provider Viraj avendano 03-11-2020 influenza virus vacc ine, unspecified formulation Johana Hagen MD Work Phone: [facility] Payers Date Payer Category Payer Unknown [employer] PPO [id number] 2022-Present [phone] [address] [place] [address] PPO [id number] 2022 Unknown [id number] 2020 Unknown [employer] PPO [id number] 2020-Present [phone] [address] [place] [address] PPO [id number] Unknown [id number] Social History Date Type Detail Facility Start: 07-24-2020 Tobacco smoking stat [facility] Never smoked tobacco [facility] Work Phone: Start: 07-24-2020 Tobacco use and exposure Smokeless tobacco non-user [facility] Work Phone: Start: 08-27-2021 End: 02-23-2023 Alcohol intake Current drinker of alcohol (finding) [facility] Start: 1960 Sex Assigned At Not on file [facility] Start: 07-24-2021 End: 08-03-2021 Exposure to SARS-CoV-2 (event) Not sure [facility] Start: 02-23-2023 History of Social function [facility] Start: 02-23-2023 Tobacco use panel [facility] National Score (1-100), lower number is lower risk 76 [facility] Note 02-24-2023 Telephone Encounter - Catherine Conti RN - 02/24/2023 1:51 PM ESTTelephone Encounter - Jane Dinero - 02/24/2023 12:46 PM EST Note Date & Type Note Facility 02-24-2023 Miscellaneous Notes Formattin g of this note might be different from the original. Called and notified that the order was faxed along with the mammogram to [facility] yesterday. They were on the same order form. Patient will call [facility]. Catherine Conti RN Patient verified by name and . She is requesting to have an Bone Density order faxed to [facility]. Review and advise. documented in this encounter [facility] Progress note 02-23-2023 Note Date & Type Note Facility 02-23-2023 Note HNO ID: [id number] Author: Johana Goldman MD Service: ? Author Type: Physician Type: Progress Notes Filed: 02/23/2023 12:29 PM Note Text: Ditching Machine Engineer offered: Patient declines. Zohreh is a 62 year old who presents for an annual gynecologic exam with complaints, review bloodwork, concerns re blood glucose and CAD . Also concerned about hair loss. New onset breast cancer in [id number] - concerns re appropriate screening. Postmenopausal: hysterectomy, 2004. HRT use: No. Last Pap: normal HPV: negative History of abnormal pap: No Last mammogram: 2022 normal History of abnormal mammogram: No Sexually active: No History of fibroids: Yes, Exercise: 5-7 times a week for 45-60 minutes. Type: Treadmill AND walking, elliptical. Diet: Currently on a plant-based diet OB History T0 L1 SAB0 IAB0 Ectopic0 Multiple0 Live Births0 Comment: Son at age 4 from [facility] [employer] History LMP: Hysterectomy Age at Menarche: Age at First : Age at Menopause: [employer] History Comments: Sexual Activity: No sexual activity data on record; No partner data on record Contraception: No contraception data on record PAST MEDICAL HISTORY Diagnosis Date Elevated cholesterol Hypothyroidism Pre-diabetes PAST SURGICAL HISTORY Procedure Laterality Date TONSILLECTOMY AND ADENOIDECTOMY VAGINAL HYSTERECTOMY FAMILY HISTORY Problem Relation Age of Onset Breast Cancer Mother Diabetes Mother Emphysema Father Leukemia Son SOCIAL HISTORY Social History Tobacco Use Smoking status: Never Smokeless tobacco: Never Vaping Use Vaping Use: Never used Substance Use Topics Alcohol use: Yes Drug use: Never REVIEW OF SYSTEMS Abdomen: No abdominal pain, nausea, vomiting, diarrhea, or constipation. No bloating, early satiety, indigestion, or increased flatulence. Bladder: + stress incontinence. No dysuria, gross hematuria, urinary frequency, urinary urgency. Breast: No breast lumps, nipple d/c, overlying skin changes, redness or skin retraction Allergies and current medication updated:Yes EXAM: BP 132/82 Ht 5' 4 (1.63m) Wt 154 lb (69.9kg) BMI 26.42 kg/(m2). GENERAL: pleasant, female in no apparent distress HEENT: Normocephalic, atraumatic, mucus membranes moist, and no lesions NECK: Supple, full range of motion, no adenopathy, and thyroid normal DERMATOLOGY: Normal, without lesions, non-icteric, and non-hirsute BREAST: soft, non-tender, symmetric, no dominant mass, normal nipple-areolar complex, no lymphadenopathy, and no nipple discharge ABDOMEN: soft, non-tender, and no masses PELVIC: external genitalia normal, normal Bartholin's glands, urethra, [place]'s glands, no vulvar lesions, good vaginal support, physiologic discharge present, normal appearing perineal body and perianal region, cervix surgically absent BIMANUAL: no adnexal masses, non-tender, and uterus surgically absent RECTOVAGINAL: deferred. NEURO: alert and oriented x3,exam grossly non-focal EXTREMITIES: normal ASSESSMENT/PLAN: 1) Health maintenance: Pap/HPV screening no longer needed Mammogram ordered [facility] Mammogram up to date Nutrition, exercise and routine health maintenance exams reviewed. Calcium/Vitamin D supplementation information provided. Colon cancer screening: up to date with screening BMD: ordered 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 Zohreh is a 62 year old who presents for an annual gynecologic exam with complaints, review bloodwork, concerns re blood glucose and CAD . Also concerned about hair loss. New onset breast cancer in [id number] - concerns re appropriate screening. Postmenopausal: hysterectomy, 2004. HRT use: No. Last Pap: normal HPV: negative History of abnormal pap: No Last mammogram: 2022 normal History of abnormal mammogram: No Sexually active: No History of fibroids: Yes, Exercise: 5-7 times a week for 45-60 minutes. Type: Treadmill & walking, elliptical. Diet: Currently on a plant-based diet OB History T0 L1 SAB0 IAB0 Ectopic0 Multiple0 Live Births0 Comment: Son at age 4 from [facility] [employer] History LMP: Hysterectomy Age at Menarche: Age at First : Age at Menopause: [employer] History Comments: Sexual Activity: No sexual activity data on record; No partner data on record Contraception: No contraception data on record PAST MEDICAL HISTORY Diagnosis Date Elevated cholesterol Hypothyroidism Pre-diabetes PAST SURGICAL HISTORY Procedure Laterality Date TONSILLECTOMY & ADENOIDECTOMY <AGE 10 VAGINAL HYSTERECTOMY FAMILY HISTORY Problem Relation Age of Onset Breast Cancer Mother Diabetes Mother Emphysema Father Leukemia Son SOCIAL HISTORY Social History Tobacco Use Smoking status: Never Smokeless tobacco: Never Vaping Use Vaping Use: Never used Substance Use Topics Alcohol use: Yes Drug use: Never REVIEW OF SYSTEMS Abdomen: No abdominal pain, nausea, vomiting, diarrhea, or constipation. No bloating, early satiety, indigestion, or increased flatulence. Bladder: + stress incontinence. No dysuria, gross hematuria, urinary frequency, urinary urgency. Breast: No breast lumps, nipple d/c, overlying skin changes, redness or skin retraction Allergies and current medication updated:Yes EXAM: BP 132/82 Ht 5' 4 (1.63m) Wt 154 lb (69.9kg) BMI 26.42 kg/(m^2). GENERAL: pleasant, female in no apparent distress HEENT: Normocephalic, atraumatic, mucus membranes moist, and no lesions NECK: Supple, full range of motion, no adenopathy, and thyroid normal DERMATOLOGY: Normal, without lesions, non-icteric, and non-hirsute BREAST: soft, non-tender, symmetric, no dominant mass, normal nipple-areolar complex, no lymphadenopathy, and no nipple discharge ABDOMEN: soft, non-tender, and no masses PELVIC: external genitalia normal, normal Bartholin's glands, urethra, [place]'s glands, no vulvar lesions, good vaginal support, physiologic discharge present, normal appearing perineal body and perianal region, cervix surgically absent BIMANUAL: no adnexal masses, non-tender, and uterus surgically absent RECTOVAGINAL: deferred. NEURO: alert and oriented x3,exam grossly non-focal EXTREMITIES: normal ASSESSMENT/PLAN: 1) Health maintenance: Pap/HPV screening no longer needed Mammogram ordered [facility] Mammogram up to date Nutrition, exercise and routine health maintenance exams reviewed. Calcium/Vitamin D supplementation information provided. Colon cancer screening: up to date with screening BMD: ordered [facility] 2) Follow up one year or sooner as needed Johana Luna MD documented in this encounter [facility] Note 09-12-2022 Telephone Encounter - Becca Hernandes RN - 09/12/2022 9:30 AM EDT Note Date & Type Note Facility 09-12-2022 Miscellaneous Notes Formattin g of this note might be different from the original. Order for screening mammogram signed by DM and faxed to [facility]. Becca Hernandes RN documented in this encounter [facility] Instructions 08-27-2021 Patient Instructions Note Date & Type Note Facility 08-27-2021 Instructions Johana Hagen MD - 08/27/2021 9:48 AM EDT The Obesity Code by Dr. Juan Goldman Life in the Fasting Jacob by Chavo Venegas, Repeat By Erika Bragg [facility] program [facility] documented in this encounter [facility] History of Present illness Narrative 08-27-2021 Johana Hagen MD - 08/27/2021 9:43 AM EDTBkerri Roberto Ma - 08/27/2021 9:32 AM EDT Note Date & Type Note Facility 08-27-2021 History of Presen t illness Narrative Zohreh is a 61 year old who presents for an annual gynecologic exam without complaints. Enjoys camping. Considered with weight gain. Granddaughter had brain surgery in July- doing well. Has been stress eating. Postmenopausal: Yes since age 38 TVH and BSO HRT use: No. Last Pap: normal History of abnormal pap: No Last mammogram: 2020 normal History of abnormal mammogram: No Sexually active: No History of STDS: None Patient concerns for STD exposure: No. Hot flashes: Yes Night sweats: Yes Vaginal dryness: No Exercise: active Diet: balanced OB History T0 L1 SAB0 IAB0 Ectopic0 Multiple0 Live Births0 Comment: Son at age 4 from [employer] History LMP: Hysterectomy Age at Menarche: Age at First : Age at Menopause: [employer] History Comments: Sexual Activity: No sexual activity data on record; No partner data on record Contraception: No contraception data on record PAST MEDICAL HISTORY Diagnosis Date Elevated cholesterol Hypothyroidism Pre-diabetes PAST SURGICAL HISTORY Procedure Laterality Date TONSILLECTOMY & ADENOIDECTOMY <AGE 10 VAGINAL HYSTERECTOMY FAMILY HISTORY Problem Relation Age of Onset Breast Cancer Mother Diabetes Mother Emphysema Father Leukemia Son SOCIAL HISTORY Social History Tobacco Use Smoking status: Never Smoker Smokeless tobacco: Never Used Vaping Use Vaping Use: Never used Substance Use Topics Alcohol use: Yes Drug use: Never REVIEW OF SYSTEMS Abdomen: No abdominal pain, nausea, vomiting, diarrhea, or constipation. No bloating, early satiety, indigestion, or increased flatulence. Bladder: No dysuria, gross hematuria, urinary frequency, urinary urgency, or incontinence Breast: No breast lumps, nipple d/c, overlying skin changes, redness or skin retraction Allergies and current medication updated:Yes EXAM: BP 126/84 Ht 5' 4 (1.63m) Wt 165 lb (74.8kg) BMI 28.31 kg/(m^2). GENERAL: pleasant, female in no apparent distress HEENT: Normocephalic, atraumatic, mucus membranes moist and no lesions NECK: Supple, full range of motion, no adenopathy and thyroid normal DERMATOLOGY: Normal, without lesions, non-icteric and non-hirsute BREAST: soft, non-tender, symmetric, no dominant mass, normal nipple-areolar complex, no lymphadenopathy and no nipple discharge ABDOMEN: soft, non-tender and no masses PELVIC: external genitalia normal, normal Bartholin's glands, urethra, [place]'s glands, no vulvar lesions, good vaginal support, physiologic discharge present, normal appearing perineal body and perianal region, cervix surgically absent, atrophic changes mild BIMANUAL: no adnexal masses, non-tender and uterus surgically absent RECTOVAGINAL: deferred. NEURO: alert and oriented x3,exam grossly non-focal EXTREMITIES: normal ASSESSMENT/PLAN: 1) Health maintenance: Pap/HPV screening no longer needed Mammogram ordered [facility] Nutrition, exercise and routine health maintenance exams reviewed. Colon cancer screening: cologuard ordered 2) Follow up one year or sooner as needed Johana Luna MD Ditching Machine Engineer offered: Patient declines. documented in this encounter [facility] Evaluation note Note Date & Type Note Facility documented in this encounter [facility] Evaluation note Note Date & Type Note Facility documented in this encounter [facility] Reason for referral (narrative) Diagnostic Procedure Only (Routine) - Pending Review Note Date & Type Note Facility Referral ID Status Reason Start Date Expiration Date Visits Requested Visits Authorized [id number] Pending Review Auto-Generat ed Referral 08/27/2021 09/26/2022 1 1 [facility] Summary Purpose Family History No Family History Records FoundNo Family History Records Found Advance Directives No Advanced Directives Records FoundNo Advanced Directives Records Found Reason for Referral Specialty Diagnoses / Procedures Referred By Garcia davis Referred To Contact Internal Medicine Diagnoses Establishing care with new doctor, encounter for Procedures CONSULT TO INTERNAL MEDICINE OFFICE/OUTPATIENT [facility] 60-74 MINUTES Johana Goldman MD [address] [place] [address] Referral ID Status Reason Start Date Expiration Date Visits Requested Visits Authorized [id number] Authorized PCP Requested Referral 3 02/23/2024 1 1 Specialty Diagnoses / Procedures Referred By Garcia davis Referred To Contact [facility] Diagnoses Encounter for screening mammogram for breast cancer Procedures DOUGLAS SCREENING W HAWA SCREENING DIGITAL BREAST TOMOSYNTHESIS BI SCREENING MAMMOGRAPHY BI 2-VIEW BREAST INC CAD Johana Goldman MD [address] [place] [address] [facility] [address] [place] [address] Referral ID Status Reason Start Date Expiration Date Visits Requested Visits Authorized [id number] Authorized Auto-Generat ed Referral 3 03/24/2024 1 1 Additional Source Comments INFORMATION SOURCE (unrecogn ized section and content) DATE CREATED AUTHOR AUTHOR'S ORGANIZ ATION 02/25/2023 [facility] Source Comments (unrecognize d section and content) In the event this informatio n is protected by the Federal Confidentiality of Alcohol and Drug Abuse Patient Records regulations: The Federal rules restrict any use of the information to criminally investigate or prosecute any alcohol or drug abuse patient.[facility] the event this information is protected by the Federal Confidentiality of Alcohol and Drug Abuse Patient Records regulations: The Federal rules restrict any use of the information to criminally investigate or prosecute any alcohol or drug abuse patient.[facility] the event this information is protected by the Federal Confidentiality of Alcohol and Drug Abuse Patient Records regulations: The Federal rules restrict any use of the information to criminally investigate or prosecute any alcohol or drug abuse patient.[facility] the event this information is protected by the Federal Confidentiality of Alcohol and Drug Abuse Patient Records regulations: The Federal rules restrict any use of the information to criminally investigate or prosecute any alcohol or drug abuse patient.[facility] Reason for Visit (unrecogniz ed section and content) Reason Comments Mammogram Order Reason Comments Yearly Exam Reason Comments Orders Care Teams (unrecognized sec tion and content) [employer]usement [employer] Ride Mechanic Relationship Specialty Start Date End Date Vandana Nice [address] [place], [place] [id number] PCP - General 07/21/00 [employer]usement Park Ride Mechanic Relationship Specialty Start Date End Date Chago Valles MD [address] [facility] [address] [place], [place] [address] PCP - General Family Medicine 02/23/23 [employer]usement Park Ride Mechanic Relationship Specialty Start Date End Date Chago Valles MD [address] [facility] [address] [place], [place] [address] PCP - General Family Medicine 02/23/23 FOR RECORDS PERTAINING TO PATIENTS WHO ARE OR HAVE BEEN ENROLLED IN A CHEMICAL DEPENDENCY/SUBSTANCEABUSE PROGRAM, SOME INFORMATION MAY BE OMITTED. This clinical summary was aggregated from multiple sources. Caution should be exercised in using it in the provision of clinical care. This summary normalizes information from multiple sources, and as a consequence, information in this document may materially change the coding, format and clinical context of patient data. In addition, data may be omitted in some cases. CLINICAL DECISIONS SHOULD BE BASED ON THE PRIMARY CLINICAL RECORDS. [facility]. provides no warranty or guarantee of the accuracy or completeness of information in this document.
== END | disposition home or self-care (01) ==
PROVIDERS: PCP Family Medicine; Referring Provider Family Medicine; Visit Provider Family Medicine
DX: M25.511 Pain in right shoulder (principal)
CPT/HCPCS: 73030

== ENCOUNTER → 2023-11-03 | Outpatient (CLI) | payer OTHER, SELFPAY ==
--- NOTE | 2023-11-03 08:56 | BI_ITS ---
MAMMOGRAPHY - BILATERAL SCREENING REASON FOR EXAM: Female, 63 years old. Routine annual screening examination. PERTINENT HISTORY: Mother with breast cancer. TECHNIQUE: Digital bilateral breast hawa (3D mammographic acquisition) in the CC and MLO projections. 2-D mediolateral oblique (MLO) and craniocaudad (CC) views of both breasts were obtained. CAD: Full Field Digital Mammography with Computer Added Detection was performed. COMPARISON: Comparison is made with prior study dated October 21, 2022 and September 17, 2021. FINDINGS: Breast Composition: There are scattered areas of fibroglandular density. There are no dominant masses or suspicious calcifications. Stable small benign-appearing bilateral axillary lymph nodes. Stable 4.7 mm lymph node in the deep upper lateral aspect of the left breast. No other significant abnormalities are identified. There has been no significant change since the prior study. BI/SCRN MAMM (CAD)W/HAWA BILAT IMPRESSION: Stable bilateral screening mammogram. Yearly follow-up mammogram recommended. (A) ASSESSMENT CATEGORY: BIRADS Category 2: Benign. A letter regarding these results will be sent to the patient by the facility within 30 days. Approximately 10% of breast cancers are not detected by mammography. A normal mammogram should not delay biopsy of a clinically suspicious abnormality. [id number] Electronically Signed: Kai Ho MD at 9:53 EDT ,
== END | disposition home or self-care (01) ==
PROVIDERS: PCP Family Medicine; Visit Provider Obstetrics & Gynecology
DX: Z12.31 Encounter for screening mammogram for malignant neoplasm of breast (principal)
CPT/HCPCS: 77063; 77067

== ENCOUNTER → 2024-02-08 | Outpatient (CLI) | payer SELFPAY ==
--- NOTE | 2024-02-08 08:16 | MRI_ITS ---
STUDY: MRI RIGHT SHOULDER REASON FOR EXAM: Female, 63 years old. SHOULDER PAIN TECHNIQUE: Standardized fat and water weighted pulse sequences were obtained in all 3 orthogonal planes. COMPARISON: Right shoulder radiographs dated 05/31/2023. FINDINGS: There is supraspinatus and infraspinatus tendinosis without a full-thickness tear. Normal subscapularis tendon. Normal teres minor tendon. Normal supraspinatus muscle. Normal infraspinatus muscle. Normal subscapularis muscle. Normal teres minor muscle. There is glenohumeral arthrosis with joint space narrowing, marginal osteophyte formation, and moderate to high-grade chondromalacia. There is a small glenohumeral joint effusion. Normal humeral head and visualized proximal humerus. Normal biceps labral complex. Normal intracapsular long biceps tendon. Normal labrum. Normal capsulo-ligamentous complex. Normal rotator interval. There is mild acromioclavicular arthrosis. There is a Type II morphology (curved), with a neutral orientation. There is a small amount of subacromial-subdeltoid bursal fluid. Normal visualized coracohumeral and coracoacromial ligaments. Normal quadrilateral space. Normal axillary space. Normal deltoid muscle. Normal trapezius muscle. MRI/Upper Ext Joint Only(Routine) IMPRESSION: Supraspinatus and infraspinatus tendinosis without a full-thickness rotator cuff tear. Mild acromioclavicular arthrosis. Mild subacromial-subdeltoid bursitis. 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 Electronically Signed: Eric Daugherty MD at 11:43 EDT ,
--- OUTSIDE RECORDS SUMMARY | 2024-02-08 08:24 | XMS RPT_ITS | CCD ---
Author Organization [facility] Care Team Providers Care Billing Coordinator Name Role Phone TANISHA Unavailable Unavailable TANISHA Unavailable Unavailable TANISHA Unavailable Unavailable BRIANDA WHITMAN MD Unavailable Unavailable PROVIDER, UNKNOWN Unavailable Unavailable Vandana Nice Primary Care Provider [phone] Vandana Nice Primary Care Provider Chago Abrams MD Primary Care Provider Chago Abrams MD Primary Care Provider [phone] VANDANA NICE Primary Care Unavailable JOHANA GOLDMAN Attending Unavail able CHAGO ABRAMS Primary Care Unavailable Allergies Allergy Classification Reported Allergen(s) Allergy Type Date of Onset Reaction(s) Facility (6 sources) Pethidine analog; Translations: [OPIOIDS-MEPERID INE AND RELATED] Drug Intolerance 1 Intolerance [facility] Work Phone: Medications Current Medications Medication Drug Class(es) Dates Sig (Normalized) Sig (Original) ascorbic acid 100 mg oral tablet (5 sources) Vitamin C take 1 tablet by mouth once daily Ascorbic Acid (VITAMIN C) 100 mg tablet Take 100 mg by mouth once daily. Active Comment on above: Take 100 mg by mouth once daily. atorvastatin 20 mg oral tablet (5 sources) HMG-CoA Reductase Inhibitor Start: 07-09-2020 take 1 tablet by mouth once daily atorvastatin (LIPITOR) 20 mg tablet Take 20 mg by mouth once daily. 07/09/2020 Active Comment on above: Take 20 mg by mouth once daily. 12 hr buPROPion hydrochloride 150 mg extended release oral tablet (5 sources) Aminoketone Start: 07-18-2020 take 1 tablet by mouth once daily buPROPion SR (ZYBAN SR; WELLBUTRIN SR) 150 mg 12 hr tablet Take 150 mg by mouth once daily. 07/18/2020 Active Comment on above: Take 150 mg by mouth once daily. doxycycline monohydrate 100 mg oral capsule (1 source) Tetracycline-class Drug Start: 02-01-2024 End: 02-08-2024 take 1 capsule by mouth twice daily doxycycline monohydrate (MONODOX) 100 mg capsule Indications: Tick bite of neck, initial encounter Take 1 capsule by mouth two times a day for 7 days. 14 capsule 02/01/2024 02/08/2024 Active fluticasone propionate 0.05 mg/actuat metered dose nasal spray (5 sources) Corticosteroid Start: 06-30-2020 take 2 spray(s) nasal route once daily fluticasone (FLONASE) 50 mcg/actuation nasal spray USE 2 SPRAY(S) IN EACH NOSTRIL ONCE DAILY 06/30/2020 Active Comment on above: USE 2 SPRAY(S) IN EA CH NOSTRIL ONCE DAILY levothyroxine sodium 0.05 mg oral tablet (6 sources) l-Thyroxine Start: 06-30-2020 take 1 tablet by mouth once daily EUTHYROX 50 mcg tablet Take 50 mcg by mouth once daily. 06/30/2020 Active Start: 04-19-2020 End: 08-27-2021 take 1 tablet by mouth once daily EUTHYROX 25 mcg tablet Take 25 mcg by mouth once daily. 0 04/19/2020 08/27/2021 Discontinued Comment on above: Take 50 mcg by mouth once daily. Take 25 mcg by mouth once daily. meloxicam 15 mg oral tablet (1 source) Nonsteroidal Anti-inflammatory Drug Start: 01-30-2024 take 7.5 mg by mouth once daily meloxicam (MOBIC) 15 mg tablet Take 7.5 mg by mouth once daily. 01/30/2024 Active Problems Problem Classification Problem Date Documented Da te Episodic/Chronic Other screening for suspected conditions (not mental disorders or infectious disease) (4 sources) Patient encounter status; Translations: [Encounter for screening mammogram for malignant neoplasm of breast] Episodic Superficial injury; contusion (1 source) Tick bite; Translations: [Insect bite of unspecified part of neck, initial encounter] 02-01-2024 Episodic Results Test Name Value Interpretation Reference Range Facility [facility] 02-01-2024 CNOV Office Visit (UCWSTR ) -- ZOHREH VAZQUEZ ([id number]) 1960 F Date Time Provider Department 02/01/24 1:00 PM JOSHUA EASTMAN [facility] During your visit today, we recorded the following information about you: Temperature Pulse Respiration Blood pressure 97 degrees 83/minute 20/minute 164/92 Weight 75 kg Joshua Eastman APRN.SMALL MACHINE BINDERY OPERATOR 02/01/2024 1:37 PM Signed This note was created using [employer]. Subjective Zohreh Vazquez is a 63 year old female. HPI Patient presents today with a tick embedded in the left side of her neck for an unknown length of time. She states that she thought it was a skin tag but then her checked and noticed that it was a tick. She otherwise denies any nausea vomiting fever or bodyaches. Review of Systems As above Objective BP 164/92 Pulse 83 Temp 36.1 ?C (97 ?F) Resp 20 Wt 75 kg (165 lb 5.5 oz) SpO2 97% BMI 28.38 kg/m? Physical Exam Vitals and nursing note reviewed. Constitutional: General: She is not in acute distress. Appearance: Normal appearance. She is not ill-appearing. HENT: Head: Normocephalic. Mouth/Throat: Mouth: Mucous membranes are moist. Eyes: Conjunctiva/sclera: Conjunctivae normal. Pulmonary: Effort: Pulmonary effort is normal. Musculoskeletal: General: Normal range of motion. Cervical back: Normal range of motion. Skin: General: Skin is warm and dry. Comments: Tick embedded in the base of the left side of the neck with surrounding erythema Neurological: General: No focal deficit present. Mental Status: She is alert. Psychiatric: Mood and Affect: Mood normal. Behavior: Behavior normal. Assessment and Plan ASSESSMENT/PLAN: 1. Tick bite of neck, initial encounter - ICD9: 910.4, E906.4, ICD10: S10.96XA, W57.XXXA Initially attempted to remove the tick with gentle pressure using a pair of tweezers but the body from the head. Area was cleaned with Betadine and numbed with 0.5 cc 2% lidocaine without epinephrine and then using an 18-gauge needle I was able to remove the remainder of the tick. No bleeding noted. Patient tolerated procedure well. -As tick has been embedded for an unknown length of time and there is surrounding erythema patient will be treated with doxycycline twice daily x 7 days. She was instructed to follow-up with PCP. - DOXYCYCLINE MONOHYDRATE 100 MG CAPSULE Joshua Eastman APRN.CNP Allergies As of Date: 02/01/2024 Noted Allergy Reaction OPIOIDS-MEPERIDINE AND RELATED 07/24/2020 5 - Intolerance Comments: SEVERELY ILL Date Reviewed: 02/01/2024 Reviewed by: Joshua Eastman APRN.SMALL MACHINE BINDERY OPERATOR - Fully Assessed Reason for Visit: Tick [Other] Cmt: Tick is imbedded L side of neck x 1 day Primary Visit Diagnosis:Tick bite of neck, initial encounter [S10.96XA, W57.XXXA] Order(s):doxycycline monohydrate (MONODOX) 100 mg capsuleTake 1 capsule by mouth two times a day for 7 days.Disp: 14 capsuleRfl: 0 Prescriptions as of 02/01/2024 - meloxicam (MOBIC) 15 mg tablet Take 7.5 mg by mouth once daily. - doxycycline monohydrate (MONODOX) 100 mg capsule Take 1 capsule by mouth two times a day for 7 days. - atorvastatin (LIPITOR) 20 mg tablet Take 20 mg by mouth once daily. - buPROPion SR (ZYBAN SR; WELLBUTRIN SR) 150 mg 12 hr tablet Take 150 mg by mouth once daily. - fluticasone (FLONASE) 50 mcg/actuation nasal spray USE 2 SPRAY(S) IN EACH NOSTRIL ONCE DAILY - EUTHYROX 50 mcg tablet Take 50 mcg by mouth once daily. - Ascorbic Acid (VITAMIN C) 100 mg tablet Take 100 mg by mouth once daily. Problem List As Of Date: 02/01/2024 (None) Prescriptions ordered this encounter Disp Refills Start End DOXYCYCLINE MONOHYDRATE 100 MG CAPSU* 14 c* 0 02/01/2024 02/08/2024 Route: ORAL Sig: Take 1 capsule by mouth two times a day for 7 days. Encounter Status:Closed by JOSHUA EASTMAN on 02/01/24 Normal [facility] JAYMEZOHREH NIEVES ([id number]) 1960 F Date Time Provider Department 02/24/23 JOHANA GOLDMAN [facility] During your visit today, we recorded the following information about you: Jane Dinero 02/24/2023 12:47 PM Signed Patient verified by name and . She is requesting to have an Bone Density order faxed to [facility]. Review and advise. Catherine Conti RN 02/24/2023 1:52 PM Signed Called and notified that the order was faxed along with the mammogram to [facility] yesterday. They were on the same order form. Patient will call [facility]. Catherine Conti RN Allergies As of Date: 02/24/2023 Noted Allergy Reaction OPIOIDS-MEPERIDINE AND RELATED 07/24/2020 5 - Intolerance Comments: SEVERELY ILL Date Reviewed: 08/27/2021 Reviewed by: Tresa Roberto Ma - Fully Assessed Reason for Visit: Orders [681] Prescriptions as of 02/24/2023 - atorvastatin (LIPITOR) 20 mg tablet Take 20 mg by mouth once daily. - buPROPion SR (ZYBAN SR; WELLBUTRIN SR) 150 mg 12 hr tablet Take 150 mg by mouth once daily. - fluticasone (FLONASE) 50 mcg/actuation nasal spray USE 2 SPRAY(S) IN EACH NOSTRIL ONCE DAILY - EUTHYROX 50 mcg tablet Take 50 mcg by mouth once daily. - Ascorbic Acid (VITAMIN C) 100 mg tablet Take 100 mg by mouth once daily. Problem List As Of Date: 02/24/2023 (None) Encounter Status:Closed by CATHERINE CONTI RN on 02/24/23 Normal [facility] CNOVon 02-23-2023 CNOV Office Visit (OBGYWM ) -- ZOHREH VAZQUEZ ([id number]) 1960 F Date Time Provider Department 02/23/23 11:20 AM JOHANA GOLDMAN [facility] During your visit today, we recorded the following information about you: Blood pressure Weight Height 132/82 69.9 kg 1.626 m Johana Goldman MD 02/23/2023 12:29 PM Signed Heavy Threader offered: Patient declines. Zohreh is a 62 year old who presents for an annual gynecologic exam with complaints, review bloodwork, concerns re blood glucose and CAD . Also concerned about hair loss. New onset breast cancer in poguzj-li-yod - concerns re appropriate screening. Postmenopausal: hysterectomy, [...] Births0 Comment: Son at age 2 from [facility] Ground Support Equipment Assembler History LMP: Hysterectomy Age at Menarche: Age at First : Age at Menopause: Ground Support Equipment Assembler History Comments: Sexual Activity: No sexual activity [...] external genitalia normal, normal Bartholin's glands, urethra, Kinloch's glands, no vulvar lesions, good vaginal support, physiologic discharge present, normal appearing perineal body and perianal region, cervix surgically absent BIMANUAL: no adnexal masses, non-tender, and uterus surgically absent RECTOVAGINAL: deferred. NEURO: alert and oriented x3,exam grossly non-focal EXTREMITIES: normal ASSESSMENT/PLAN: 1) Health maintenance: Pap/HPV screening no longer needed Mammogram ordered [facility] Mammogram up to date Nutrition, exercise and routine health maintenance exams reviewed. Calcium/Vitamin D supplementation information provided. Colon cancer screening: up to date with screening BMD: ordered [facility] 2) Follow up one year or sooner as needed Johana Luna MD Referring Provider: SELF [200] Allergies As of Date: 02/23/2023 Noted Allergy Reaction OPIOIDS-MEPERIDINE AND RELATED 07/24/2020 5 - Intolerance Comments: SEVERELY ILL Date Reviewed: 08/27/2021 Reviewed by: Tresa Roberto Ma - Fully Assessed Reason for Visit: Yearly Exam [187] Primary Visit Diagnosis:Encounter for gynecological examination (general) (routine) without abnormal findings [Z01.419] Other Visit Diagnoses:Encounter for screening mammogram for breast cancer [Z12.31] Establishing care with new doctor, encounter for [Z76.89] Order(s):DOUGLAS SCREENING W HAWA [[id number]] Order #: [id number] FUTURE CONSULT TO INTERNAL MEDICINE [9017] Order #: [id number]: 1 FUTURE Prescriptions as of 02/23/2023 - atorvastatin (LIPITOR) 20 mg tablet Take 20 mg by mouth once daily. - buPROPion SR (ZYBAN SR; WELLBUTRIN SR) 150 mg 12 hr tablet Take 150 mg by mouth once daily. - fluticasone (FLONASE) 50 mcg/actuation nasal spray USE 2 SPRAY(S) IN EACH NOSTRIL ONCE DAILY - EUTHYROX 50 mcg tablet Take 50 mcg by mouth once daily. - Ascorbic Acid (VITAMIN C) 100 mg tablet Take 100 mg by mouth once daily. Problem List As Of Date: 02/23/2023 (None) Disposition: Return in 1 year (on 02/24/2024) for (more content not included)... Normal [facility] MuSK ANITBODY TEST [QUEST]on 06-23-2017 MuSK ANITBODY TEST [QUEST] Normal [facility] Comment on above: Result Comment: _MuS K ANTIBODY TEST_MUSK ANTIBODY TESTReported: 06/23/2017 17:40 Status=F TEST RESULT FLAG RANGE UNITS MUSK ANTIBODY TEST see below 06/23/17.1751.rfl.COMPLETE.MILR .18353-2 FXIXP OVBJGAG--------MGVGL--HKV. RANGE---INTERPRETATIONNEGATIVEThis test did not detect abnormal levels of anti-MuSKantibodies.TECHNICAL RESULTS Interpretive Result Table IN TERPRETIVE RESULT: NegativeTEST: anti-MuSKTECHNICAL RESULT: <1:10REFERENCE RANGE: Negative <1:10, Borderline 1:10, Positive>=1:20 COMMENTSComments: This result does not exclude a diagnosis ofMyasthenia Gravis.Recommendations: Health care providers, please contact the[employer] Client Services Department [phone] if you wish to speak with a clinicalconsultant regarding this test result.Other testing available: If there is high clinical suspicionfor myasthenia gravis, consider testing for LRP4 antibodies.Background information:Myasthenia gravis (MG) is anautoimmune disease affecting the neuromuscular junctions ofskeletal muscles. The predominant clinical feature isfatigability and weakness of the muscles that typicallybecome progressively worse during periods of sustainedactivity and improve after periods of rest (1,2). Age ofonset of MG is variable with an overall incidence ofapproximately 15:100,000 (1).Anti-MuSK antibodies have been associated with MyastheniaGravis (3,4). Although the majority of patients withgeneralized myasthenia gravis (MG) have antibodies againstAChR (AChR-MG), 10-15% are seronegative. Within this group,about 40% have anti-MuSK antibodies, representing 5-8% ofthe MG population (3,4). Diagnosis of MuSK MG can bechallenging due to its atypical presentation, including fewsymptom fluctuations, non-responsiveness toacetylcholinesterase inhibitors in a significant proportionof patients and negative electrodiagnostic studies whenperformed on limb muscles (4).METHODSDetection of antibodies was performed by Radioimmunoassay(PARAS) methodology.Limitations of analysis: Reagent effectiveness may affectthe signal intensity of the response. Although rare, falsepositive or false negative results may occur. All resultsshould be interpreted in the context of clinical findings,relevant history, and other laboratory data.REFERENCES1. Melody Luna, et al. (2005) COLEEN 293: 1906-14. (PMID:34073399)2. KINJAL Renee, et al. (2000) Postgrad Med 107: 211-4,220-2. (PMID: 83470512)3. Mei-Sameer S, et al. (2014) J Autoimmun 52: 90-100.(PMID: 70470641)4. Evelio Vieyra et al. (2013) Autoimmun Rev 12: 931-5. (PMID:95898600)This test was developed and its analytical performancecharacteristics have been determined by [employer] [facility] [employer].It has not been cleared or approved by the U.S. Food andDrug Administration. This assay has been validated pursuantto the CLIA regulations and is used for clinical purposes.Laboratory oversight provided by Henrique Ching M.D.,F.A.A.N., CLIA license addison, [facility] (CLIA #[id number])Testing performed at:[facility] [address] [place], [place] [address]Test performed by [facility] [address] [place] [address] Yzxkgovlzj oversight provided by Henrique Ching M.D., F.A.A.N., CLIA license addison, [employer] [facility](CLIA #[id number])Test Reported by [facility],[address] [place] [address]Krnqxcgbess Abdi M.D., Ph.D., Director of [phone], CLIA [id number] Performed By: #### 2 [id number] ####[facility],[address] [place] [address] ACETYLCHOLINE MODULATING REC EPTOR AB[QU]on 06-22-2017 Acetaminophen mass conc Normal [facility] Comment on above: Result Comment: _ACE TYLCHOLINE MODULATING RECEPTOR AB_ACETYLCHOLINE RECEPTOR MODULATING ANTIBODYReported: 06/22/2017 15:54 Status=F TEST RESULT FLAG RANGE UNITS Acetylcholine Rec Mod Ab 10 % 06/22/17.1606.rfl.COMPLETE.AMRR .57512-6Zzgqt: % binding inhibition Reference Range: < 32% BINDING INHIBITIONThis test was developed and its analyticalperformance characteristics have been determinedby [employer] [facility]. It has not been cleared or approved by[facility]. This assay has been validated pursuant to theCLIA regulations and is used for clinicalpurposes.Test performed by [employer] [address] [place] [address] Zjeawgn Director: Ashtyn Sadler MD,PHD,MBATest Reported by [facility],[address] [place], [place] [address]IhyswzhMarsha Abdi M.D., Ph.D., Director of [phone], CLIA [id number] Performed By: #### 2 [id number] ####[facility],[address] [place] [address] ACETYLCHOLINE REC BIND AB [Q UEST]on 06-21-2017 Acetaminophen mass conc Normal [facility] Comment on above: Result Comment: _ACE TYLCHOLINE REC BIND AB_ACETYLCHOLINE RECEPTOR BINDING ANTIBODYReported: 06/20/2017 09:45 Status=F TEST RESULT FLAG RANGE UNITS ACETYLCHOLINE REC BINDING <0.30 <=0.30 nmol/L 06/20/17.0957.rfl.COMPLETE.AMRR .93892-0 Reference Range: Negative: <=0.30 nmol/L Equivocal: 0.31-0.49 nmol/L Positive: >=0.50 nmol/LTest Performed by [facility],[address] [place], [place] [address]BaikbesMarsha Abdi M.D., Ph.D., Director of [phone], CLIA [id number] Performed By: #### 2 [id number] ####[facility],[address] [place], [place] [address] ACETYLCHOLINE RECEPTOR BLOCK ING AB [QU]on 06-21-2017 Acetaminophen mass conc Normal [facility] Comment on above: Result Comment: _ACE TYLCHOLINE REC BLOC AB_ACETYLCHOLINE RECEPTOR BLOCKING ANTIBODYReported: 06/19/2017 19:48 Status=F TEST RESULT FLAG RANGE UNITS ACETYLCHOLINE REC BLOC AB <15 <15 % inhibit 06/19/17.2000.rfl.COMPLETE.AMRR .21271-2Lbvdh are % of inhibition.Test Performed by Ligia Jackson,[facility],[address] [place] [address]Daandlsbess Abdi M.D., Ph.D., Director of [phone], [facility] [id number] Performed By: #### 2 [id number] ####[facility],[address] [place] [address] Vital Signs Date Time Vital Sign Value Performing Clinician Nallely amaro 02-01-2024 12:55-0400 Body mass index (BMI) [Ratio] 28.38 kg/m2 Joshua aEstman APRN.CNP Work Phone: [facility] 02-01-2024 12:55-0400 Body temperature 97 [degF] Joshua Eastman APRN.CNP Work Phone: [facility] 02-01-2024 12:55-0400 Body weight 75 kg Joshua Moomaw EYE DROPPER ASSEMBLER.SMALL MACHINE BINDERY OPERATOR Work Phone: [facility] 02-01-2024 12:55-0400 Diastolic blood pressure 92 mm[Hg] Joshua Moomaw EYE DROPPER ASSEMBLER.SMALL MACHINE BINDERY OPERATOR Work Phone: [facility] 02-01-2024 12:55-0400 Heart rate 83 /min Joshua Moomaw EYE DROPPER ASSEMBLER.SMALL MACHINE BINDERY OPERATOR Work Phone: [facility] 02-01-2024 12:55-0400 Respiratory rate 20 /min Joshua Moomaw EYE DROPPER ASSEMBLER.SMALL MACHINE BINDERY OPERATOR Work Phone: [facility] 02-01-2024 12:55-0400 SaO2% (BldA) [Mass fraction] 97 % Joshua Moomaw EYE DROPPER ASSEMBLER.SMALL MACHINE BINDERY OPERATOR Work Phone: [facility] 02-01-2024 12:55-0400 Systolic blood pressure 164 mm[Hg] Joshua Moomaw EYE DROPPER ASSEMBLER.SMALL MACHINE BINDERY OPERATOR Work Phone: [facility] 02-23-2023 11:19-0500 Body height 162.6 cm Johana Hagen MD Work Phone: [facility] 02-23-2023 11:19-0500 Body weight 69.85 kg Johana Hagen MD Work Phone: [facility] 02-23-2023 11:19-0500 Diastolic blood pressure 82 mm[Hg] Johana Hagen MD Work Phone: [facility] 02-23-2023 11:19-0500 Systolic blood pressure 132 mm[Hg] Johana Hagen MD Work Phone: [facility] 08-27-2021 09:36-0400 Body height 162.6 cm Johana Hagen MD Work Phone: [facility] 08-27-2021 09:36-0400 Body weight 74.84 kg Johana Hagen MD Work Phone: [facility] 08-27-2021 09:36-0400 Diastolic blood pressure 84 mm[Hg] Johana Hagen MD Work Phone: [facility] 08-27-2021 09:36-0400 Systolic blood pressure 126 mm[Hg] Johana Hagen MD Work Phone: [facility] Encounters Encounter Date Encounter Type Care Provider Facility Start: 02-01-2024 End: 02-01-2024 ambulatory CHAGO ARMENDARIZELSEN Facility:[facility] Start: 02-01-2024 End: 02-01-2024 Patient encounter procedure Joshua Eastman EYE DROPPER ASSEMBLERALEXIS Work Phone: [facility] Comment on above: Tick bite of neck, i nitial encounter (Primary Dx) Start: 02-24-2023 Telephone encounter Johana Hagen MD Work Phone: [facility] Comment on above: Orders Start: 02-23-2023 End: 02-23-2023 ambulatory VANDANA NICE Facility:[facility] Start: 02-23-2023 End: 02-23-2023 Patient encounter procedure Johana Hagen MD Work Phone: OB/Gynecology Comment on above: Encounter for gyneco logical examination (general) (routine) without abnormal findings (Primary Dx); Encounter for screening mammogram for breast cancer; Establishing care with new doctor, encounter for Start: 02-23-2023 End: 02-23-2023 Patient encounter status Johana Hagen MD Work Phone: [facility] Start: 09-12-2022 Telephone encounter Johana Hagen MD Work Phone: OB/Gynecology Comment on above: Mammogram Order Start: 08-27-2021 End: 08-27-2021 Patient encounter procedure Johana Hagen MD Work Phone: OB/Gynecology Comment on above: Encounter for gyneco logical examination (general) (routine) without abnormal findings (Primary Dx); Encounter for screening mammogram for malignant neoplasm of breast; Encounter for screening for malignant neoplasm of colon Start: 08-27-2021 End: 08-27-2021 Patient encounter status Johana Hagen MD Work Phone: OB/Gynecology Start: 06-16-2017 End: 06-16-2017 Ambulatory [facility] Procedures Date Procedure Procedure Detail Performing Clinician Start: 09-17-2021 Mammography Johana Hagen MD Work Phone: Start: 09-11-2020 Mammography Johana Hagen MD Work Phone: Plan of Treatment Date Care Activity Detail Author Start: 2033 RSV Vaccine (1 - 1-d ose 75+ series) RSV Vaccine (1 - 1-dose 75+ series) [facility] Start: 11-02-2024 Screening for malign ant neoplasm of breast Mammogram Screening [facility] Start: 10-03-2024 COLOGUARD (FIT-DNA) COLOGUARD (FIT-D NA) [facility] Start: 10-03-2024 COLORECTAL CANCER SCREENING COLORECTAL CANCER SCREENING [facility] Start: 10-03-2024 Screening for malign ant neoplasm of colon [facility] Start: 02-27-2024 End: 02-27-2024 Patient encounter procedure 02/27/2024 11:20 AM EST Office Visit OB/Gynecology [address] [place] [address] Johana Goldman MD [address] [place] [id number] Annual OB/Gynecology Comment on above: Annual Start: 12-10-2023 Covid-19 Vaccine ( season) Covid-19 Vaccine ( season) [facility] Start: 12-10-2023 Influenza vaccination Influenza Vacc ine (#1) [facility] Start: 10-22-2023 Mammography Mammogram Screening [facility] Start: 07-29-2023 Advance Directive Discussion Advance Directive Discussion [facility] Start: 07-29-2023 Pneumococcal Vaccine : 65+ (2 of 2 - PCV) Pneumococcal Vaccine: 65+ (2 of 2 - PCV) [facility] Start: 07-29-2023 Screening for osteoporosis Bone Density Screening [facility] Start: 12-09-2022 Covid-19 Vaccine ( season) Covid-19 Vaccine ( season) [facility] Start: 12-09-2022 Influenza vaccination [facility] Start: 09-17-2022 Mammography MAMMOGRAM [facility] Start: 04-10-2022 DEPRESSION ASSESSMENT DEPRESSION ASS ESSMENT [facility] Start: 12-09-2021 Influenza vaccination INFLUENZ A (Season Ended) [facility] Start: 10-08-2021 COVID-19 VACCINE (5 - Booster for Moderna series) COVID-19 VACCINE (5 - Booster for Moderna series) [facility] Start: 09-11-2021 Mammography MAMMOGRAM [facility] Start: 03-20-2020 Shingrix Vaccine (2 of 2) Shingrix Vaccine (2 of 2) [facility] Start: 2018 RSV Vaccine (1 - 1-d ose 60+ series) RSV Vaccine (1 - 1-dose 60+ series) [facility] Start: 2008 SHINGRIX VACCINE (1 of 2) SHINGRIX VACCINE (1 of 2) [facility] Start: 07-29-2003 COLOGUARD (FIT-DNA) COLOGUARD (FIT-D NA) [facility] Start: 07-29-2003 Colonoscopy COLONOSCOPY [facility] Start: 07-29-2003 COLORECTAL CANCER SCREENING COLORECTAL CANCER SCREENING [facility] Start: 07-29-[address] COLONOGRAPHY [facility] Start: 07-29-2003 DIABETES SCREEN DIABETES SCREEN [facility] Start: 07-29-2003 Diabetes Screening Diabetes Screenin g [facility] Start: 07-29-2003 FECAL OCCULT BLOOD FECAL OCCULT BLOO D [facility] Start: 07-29-2003 Lipid 1996 panel - S nataly or Plasma Lipid Screening [facility] Start: 07-29-2003 Lipid panel Lipid Screening [facility] Start: 07-29-2003 LIPID SCREEN LIPID SCREEN [facility] Start: 07-29-2003 Screening for malign ant neoplasm of colon [facility] Start: 07-29-2003 SIGMOIDOSCOPY [facility] Start: 1988 HPV TESTING HPV TESTING [facility] Start: 07-29-1979 PAP TESTING PAP TESTING [facility] Start: 1977 Urine microalbumin profile [facility] Start: 1976 Anxiety Screening Anxiety Screening [facility] Start: 1976 Depression Screening Depression Scre ening [facility] Start: 1976 HEPATITIS C SCREENING HEPATITIS C [facility] Start: 1976 Hepatitis C screening Hepatitis C [facility] Start: 1976 HIV SCREENING HIV SCREENING [facility] Start: 1976 HIV screening HIV Screening [facility] Start: 1970 Adult depression screening assessment DEPRESSION SCREENING [facility] COLOGUARD COLOGUARD Lab Ro utine Encounter for screening for malignant neoplasm of colon Ordered: 08/27/2021 [facility] Work Phone: Comment on above: Ordered: 08/27/2021 End: 09-26-2022 [facility] SCRE[facility]ING [facility] Radiology Routine Encounter for screening mammogram for malignant neoplasm of breast 1 Occurrences starting 08/27/2021 until 09/26/2022 [facility] Work Phone: Comment on above: 1 Occurrences starti ng 08/27/2021 until 09/26/2022 End: 03-24-2024 D[facility]GLAS SCREENING [facility] SCRE[facility]ING [facility] Radiology Routine Encounter for screening mammogram for breast cancer 1 Occurrences starting 02/23/2023 until 03/24/2024 [facility] Work Phone: Comment on above: 1 Occurrences starti ng 02/23/2023 until 03/24/2024 [facility] Immunizations Immunization Date Immunization Notes Care Provider Fa cili 03-11-2020 influenza virus vacc ine, unspecified formulation Johana Hagen MD Work Phone: [facility] Payers Date Payer Category Payer Private Health Insurance [employer] [place] IGNA PPO TPA [id number] 2024-Present [address] [place] [address] PPO [id number] 2024 Private Health Insurance [id number] 2022 Unknown JAYSON GREGORY SS PPO [id number] 2022-Present [phone] [address] [place] [address] PPO [id number] 2022 Unknown [id number] 2020 Unknown [employer] PPO [id number] 2020-Present [phone] [address] [place] [address] PPO [id number] Unknown [id number] Social History Date Type Detail Facility Start: 07-24-2020 End: 02-01-2024 Tobacco smoking status NHIS Never smoked tobacco [facility] Work Phone: Start: 07-24-2020 End: 02-01-2024 Tobacco use and exposure Smokeless tobacco non-user [facility] Work Phone: Start: 08-27-2021 End: 02-01-2024 Alcohol intake Current drinker of alcohol (finding) [facility] Start: 1960 Sex Assigned At Not on file [facility] Start: 07-24-2021 End: 08-03-2021 Exposure to SARS-CoV-2 (event) Not sure [facility] Start: 02-23-2023 End: 02-01-2024 History of Social function [facility] Start: 02-23-2023 End: 02-01-2024 Tobacco use panel [facility] National Score (1-100), lower number is lower risk 76 [facility] Clinical Notes 08-27-2021 to 02-01-2024 Joshua Eastman APRN.SMALL MACHINE BINDERY OPERATOR - 02/01/2024 1:33 PM EDTTelephone Encounter - Catherine Conti RN - 02/24/2023 1:51 PM ESTTelephone Encounter - Jane Dinero - 02/24/2023 12:46 PM ESTPatient Instructions Note Date & Type Note Facility 02-01-2024 Note HNO ID: [id number] Author: JOSHUA EASTMAN APRN.SMALL MACHINE BINDERY OPERATOR Service: ? Author Type: Nurse Practitioner Type: Progress Notes Filed: 02/01/2024 13:37 Note Text: This note was created using [employer]. Subjective Zohreh Vazquez is a 63 year old female. HPI Patient presents today with a tick embedded in the left side of her neck for an unknown length of time. She states that she thought it was a skin tag but then her checked and noticed that it was a tick. She otherwise denies any nausea vomiting fever or bodyaches. Review of Systems As above Objective BP 164/92 Pulse 83 Temp 36.1 ?C (97 ?F) Resp 20 Wt 75 kg (165 lb 5.5 oz) SpO2 97% BMI 28.38 kg/m? Physical Exam Vitals and nursing note reviewed. Constitutional: General: She is not in acute distress. Appearance: Normal appearance. She is not ill-appearing. HENT: Head: Normocephalic. Mouth/Throat: Mouth: Mucous membranes are moist. Eyes: Conjunctiva/sclera: Conjunctivae normal. Pulmonary: Effort: Pulmonary effort is normal. Musculoskeletal: General: Normal range of motion. Cervical back: Normal range of motion. Skin: General: Skin is warm and dry. Comments: Tick embedded in the base of the left side of the neck with surrounding erythema Neurological: General: No focal deficit present. Mental Status: She is alert. Psychiatric: Mood and Affect: Mood normal. Behavior: Behavior normal. Assessment and Plan ASSESSMENT/PLAN: 1. Tick bite of neck, initial encounter - ICD9: 910.4, E906.4, ICD10: S10.96XA, W57.XXXA Initially attempted to remove the tick with gentle pressure using a pair of tweezers but the body from the head. Area was cleaned with Betadine and numbed with 0.5 cc 2% lidocaine without epinephrine and then using an 18-gauge needle I was able to remove the remainder of the tick. No bleeding noted. Patient tolerated procedure well. -As tick has been embedded for an unknown length of time and there is surrounding erythema patient will be treated with doxycycline twice daily x 7 days. She was instructed to follow-up with PCP. - DOXYCYCLINE MONOHYDRATE 100 MG CAPSULE Joshua Eastman APRN.CNP [facility] 02-01-2024 History of Presen t illness Narrative This note was created using [employer]. Subjective Zohreh Vazquez is a 63 year old female. HPI Patient presents today with a tick embedded in the left side of her neck for an unknown length of time. She states that she thought it was a skin tag but then her checked and noticed that it was a tick. She otherwise denies any nausea vomiting fever or bodyaches. Review of Systems As above Objective BP 164/92 Pulse 83 Temp 36.1 C (97 F) Resp 20 Wt 75 kg (165 lb 5.5 oz) SpO2 97% BMI 28.38 kg/m Physical Exam Vitals and nursing note reviewed. Constitutional: General: She is not in acute distress. Appearance: Normal appearance. She is not ill-appearing. HENT: Head: Normocephalic. Mouth/Throat: Mouth: Mucous membranes are moist. Eyes: Conjunctiva/sclera: Conjunctivae normal. Pulmonary: Effort: Pulmonary effort is normal. Musculoskeletal: General: Normal range of motion. Cervical back: Normal range of motion. Skin: General: Skin is warm and dry. Comments: Tick embedded in the base of the left side of the neck with surrounding erythema Neurological: General: No focal deficit present. Mental Status: She is alert. Psychiatric: Mood and Affect: Mood normal. Behavior: Behavior normal. Assessment and Plan ASSESSMENT/PLAN: 1. Tick bite of neck, initial encounter - ICD9: 910.4, E906.4, ICD10: S10.96XA, W57.XXXA Initially attempted to remove the tick with gentle pressure using a pair of tweezers but the body from the head. Area was cleaned with Betadine and numbed with 0.5 cc 2% lidocaine without epinephrine and then using an 18-gauge needle I was able to remove the remainder of the tick. No bleeding noted. Patient tolerated procedure well. -As tick has been embedded for an unknown length of time and there is surrounding erythema patient will be treated with doxycycline twice daily x 7 days. She was instructed to follow-up with PCP. - DOXYCYCLINE MONOHYDRATE 100 MG CAPSULE Joshua Eastman APRN.SMALL MACHINE BINDERY OPERATOR documented in this encounter [facility] 02-24-2023 Miscellaneous Notes Called and notified that the order was faxed along with the mammogram to [facility] yesterday. They were on the same order form. Patient will call [facility]. Catherine Conti RN Patient verified by name and . She is requesting to have an Bone Density order faxed to [facility]. Review and advise. documented in this encounter [facility] 02-23-2023 Note HNO ID: [id number] Author: Johana Goldman MD Service: ? Author Type: Physician Type: Progress Notes Filed: 02/23/2023 12:29 PM Note Text: Heavy Threader offered: Patient declines. Zohreh is a 62 year old who presents for an annual gynecologic exam with complaints, review bloodwork, concerns re blood glucose and CAD . Also concerned about hair loss. New onset breast cancer in [id number] - concerns re appropriate screening. Postmenopausal: hysterectomy, [...] Births0 Comment: Son at age 4 from [facility] [employer] History LMP: Hysterectomy Age at Menarche: Age at First : Age at Menopause: [employer] History Comments: Sexual Activity: No sexual activity [...] external genitalia normal, normal Bartholin's glands, urethra, Kinloch's glands, no vulvar lesions, good vaginal support, physiologic discharge present, normal appearing perineal body and perianal region, cervix surgically absent BIMANUAL: no adnexal masses, non-tender, and uterus surgically absent RECTOVAGINAL: deferred. NEURO: alert and oriented x3,exam grossly non-focal EXTREMITIES: normal ASSESSMENT/PLAN: 1) Health maintenance: Pap/HPV screening no longer needed Mammogram ordered [facility] Mammogram up to date Nutrition, exercise and routine health maintenance exams reviewed. Calcium/Vitamin D supplementation information provided. Colon cancer screening: up to date with screening BMD: ordered [facility] 2) Follow up one year or sooner as needed Johana Luna MD [facility] 02-23-2023 History of Presen t illness Narrative Heavy Threader offered: Patient declines. Zohreh is a 62 year old who presents for an annual gynecologic exam with complaints, review bloodwork, concerns re blood glucose and CAD . Also concerned about hair loss. New onset breast cancer in [id number] - concerns re appropriate screening. Postmenopausal: hysterectomy, [...] Births0 Comment: Son at age 4 from [facility] [employer] History LMP: Hysterectomy Age at Menarche: Age at First : Age at Menopause: [employer] History Comments: Sexual Activity: No sexual activity [...] external genitalia normal, normal Bartholin's glands, urethra, Kinloch's glands, no vulvar lesions, good vaginal support, physiologic discharge present, normal appearing perineal body and perianal region, cervix surgically absent BIMANUAL: no adnexal masses, non-tender, and uterus surgically absent RECTOVAGINAL: deferred. NEURO: alert and oriented x3,exam grossly non-focal EXTREMITIES: normal ASSESSMENT/PLAN: 1) Health maintenance: Pap/HPV screening no longer needed Mammogram ordered [facility] Mammogram up to date Nutrition, exercise and routine health maintenance exams reviewed. Calcium/Vitamin D supplementation information provided. Colon cancer screening: up to date with screening BMD: ordered [facility] 2) Follow up one year or sooner as needed Johana Luna MD documented in this encounter [facility] 09-12-2022 Miscellaneous Notes Order for screening mammogram signed by DM and faxed to [facility]. Becca Hernandes RN documented in this encounter [facility] 08-27-2021 Instructions Johana Hagen MD - 08/27/2021 9:48 AM EDT The Obesity Code by Dr. Juan Goldman Life in the Fasting Jacob by Dr. 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 NEURO: alert and oriented x3,exam grossly non-focal EXTREMITIES: normal ASSESSMENT/PLAN: 1) Health maintenance: Pap/HPV screening no longer needed Mammogram ordered [facility] Nutrition, exercise and routine health maintenance exams reviewed. Colon cancer screening: cologuard ordered 2) Follow up one year or sooner as needed Johana Luna MD Heavy Threader offered: Patient declines. documented in this encounter [facility] Evaluation note Diagnosis Encounter for gynecological examination (general) (routine) without abnormal findings- Primary Encounter for screening mammogram for malignant neoplasm of breast Other screening mammogram Encounter for screening for malignant neoplasm of colon Special screening for malignant neoplasms, colon [facility] Diagnosis Encounter for gynecological examination (general) (routine) without abnormal findings- Primary Encounter for screening mammogram for breast cancer Establishing care with new doctor, encounter for Other reasons for seeking consultation [facility] Diagnosis Tick bite of neck, initial encounter- Primary [facility] (n[facility]ative)* Diagnostic Procedure Only (Routine) - Pending Review Specialty Diagnoses / Procedures Referred By Garcia davis Referred To Contact [facility] Diagnoses Encounter for screening mammogram for malignant neoplasm of breast Procedures DOUGLAS SCREENING W HAWA SCREENING DIGITAL BREAST TOMOSYNTHESIS BI SCREENING MAMMOGRAPHY BI 2-VIEW BREAST INC CAD Johana Goldman MD [address] [place] [address] [facility] [address] [place] [id number] Referral ID Status Reason Start Date Expiration Date Visits Requested Visits Authorized [id number] Pending Review Auto-Generat ed Referral 08/27/2021 09/26/2022 1 1 [facility] Summary Purpose Family History No Family History Records FoundNo Family History Records Found Advance Directives No Advanced Directives Records FoundNo Advanced Directives Records Found Reason for Referral Specialty Diagnoses / Procedures Referred By Garcia t Referred To Contact Internal Medicine Diagnoses Establishing care with new doctor, encounter for Procedures CONSULT TO INTERNAL MEDICINE OFFICE/OUTPATIENT NEW HIGH MDM 60-74 MINUTES Johana Goldman MD [address] [place] [address] Referral ID Status Reason Start Date Expiration Date Visits Requested Visits Authorized [id number] Authorized PCP Requested Referral 3 02/23/2024 1 1 Specialty Diagnoses / Procedures Referred By Garcia davis Referred To Contact [facility] Diagnoses Encounter for screening mammogram for breast cancer Procedures DOUGLAS SCREENING W HAWA SCREENING DIGITAL BREAST TOMOSYNTHESIS BI SCREENING MAMMOGRAPHY BI 2-VIEW BREAST INC CAD Johana Goldman MD [address] [place] [address] [facility] [address] [place] [address] Referral ID Status Reason Start Date Expiration Date Visits Requested Visits Authorized [id number] Authorized Auto-Generat ed Referral 3 03/24/2024 1 1 Additional Source Comments INFORMATION SOURCE (unrecogn ized section and content) DATE CREATED AUTHOR 09/29/2017 Venancio Ricardo [facility] DATE CREATED AUTHOR AUTHOR'S ORGANIZ ATION 02/03/2024 [facility] Source Comments (unrecognize d section and content) In the event this informatio n is protected by the Federal Confidentiality of Alcohol and Drug Abuse Patient Records regulations: The Federal rules restrict any use of the information to criminally investigate or prosecute any alcohol or drug abuse patient.[facility] the event this information is protected by the Federal Confidentiality of Alcohol and Drug Abuse Patient Records regulations: The Federal rules restrict any use of the information to criminally investigate or prosecute any alcohol or drug abuse patient.[facility] the event this information is protected by the Federal Confidentiality of Alcohol and Drug Abuse Patient Records regulations: The Federal rules restrict any use of the information to criminally investigate or prosecute any alcohol or drug abuse patient.[facility] the event this information is protected by the Federal Confidentiality of Alcohol and Drug Abuse Patient Records regulations: The Federal rules restrict any use of the information to criminally investigate or prosecute any alcohol or drug abuse patient.[facility] the event this information is protected by the Federal Confidentiality of Alcohol and Drug Abuse Patient Records regulations: The Federal rules restrict any use of the information to criminally investigate or prosecute any alcohol or drug abuse patient.[facility] Reason for Visit (unrecogniz ed section and content) Reason Comments Yearly Exam Reason Comments Mammogram Order Reason Comments Yearly Exam Reason Comments Orders Reason Comments Tick Tick is imbedded L s mayela of neck x 1 day Care Teams (unrecognized sec tion and content) Billing Coordinator Relationship Specialty Start Date End Date Vandana Nice [address] [place] [address] PCP - General 07/21/00 Billing Coordinator Relationship Specialty Start Date End Date Vandana Nice [address] [place] [address] PCP - General 07/21/00 Billing Coordinator Relationship Specialty Start Date End Date Chago Abrams MD [address] [place] [address] [address] [place] [address] PCP - General Family Medicine 02/23/23 Billing Coordinator Relationship Specialty Start Date End Date Chago Abrams MD [address] [place] [address] [address] [place] [address] PCP - General Family Medicine 02/23/23 Billing Coordinator Relationship Specialty Start Date End Date Chago Abrams MD [address] [place] [address] [address] [place] [address] PCP - General Family Medicine 02/23/23 FOR [...] BE BASED ON THE PRIMARY CLINICAL RECORDS. [facility] [employer] [facility]. provides no warranty or guarantee of the accuracy or completeness of information in this document.
== END | disposition home or self-care (01) ==
PROVIDERS: PCP Family Medicine; Referring Provider Family Medicine; Visit Provider Family Medicine
DX: M25.511 Pain in right shoulder (principal)
CPT/HCPCS: 73221

== ENCOUNTER 2024-03-21 17:30 | Outpatient (RCR) | payer OTHER, SELFPAY ==
--- NOTE | 2024-02-14 18:03 | HP.PTEVAL_ITS ---
Patient's Visit Information Visit Information Visit Information: PAOLA DE is a 63 year old F referred to Physical Therapy by Dr. Chgao Valles MD with a diagnosis of TENDINOSIS SHOULDER. Date of Evaluation: 02/14/24 Physical Therapist: Reji Siddiqui, PT, Cert MDT, OCS Visit Plan Duration: 4 Weeks Plan: PT INTERVENTIONS RTC/SCAPULAR STRENGTHENING RTC ,POSTURAL EX'S .MANUAL THERAPY G-H JOINT MOBS 2-3 , ,ROM ,AND MODALTIES PRN Subjective Subjective: This 63 y/o female presents to physical therapy with right shoulder tendinosis . Patient has had shoulder pain 3 months. Pain s een chiropractor did not helped. 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 There is a small glenohumeral joint effusion. Patient was prescribed meloxicam. Patient pain located global lateral deltoid occasional . Patient symptoms worse and aggravating factors lifting arm OH ,affects ADLS and activities above 90 degrees. Pain affects sleeping. Alleviating factors rest. Patient symptoms affects QOL and function. Patient denies paresthesia/tingling . Patient goals to have no pain function. SOCAIL;: Pain Left Shoulder: Pain Intensity (Out of 10): 5 Pain Intensity Range: 10 Objective Objective: POSTURE: rounded shoulders head forward PALPATION: tender AC region NEURO: denies parestehesia/tingling ,reflexes C5-6-7 2/3 AROM SHOULDER: flexion 120 degrees ,abduction 120 degrees ,ER 85 ,IR L1( crepitus noted)-G-H PROM: shoulder flexion 140 degrees ,140 degrees abduction ,ER 90 degrees MMT: RTC 4/5 pain deltoid 4-/5 pain CAPSULAR: mil/mod tight SCAPULAR -HUMERAL FUNCTION: 1:1 Special Tests R Shoulder External Rotation Lag Test - RC Tear: Negative R Shoulder Lift Off Test - Subscapular Tear: Negative R Shoulder Drop Sign - IS Test: Negative R Shoulder Empty Can - SS: Positive R Shoulder Belly Press - SupScap: Negative R Shoulder Neer - Impingement: Positive R Shoulder [employer] - Impingement: Positive R Shoulder Shrug Sign - OA/Adhesive Capsulitis: Positive Balance/Special Test Scores Quick DASH Score: 43.1800 Goals Goal 1:: Patient to be I with HEP for shoulder Goal Time Frame: 4-6 Weeks Goal 2:: Patient to improve AROM shoulder flexion /abduction by 150 degrees to improve OH ADLS Goal Time Frame: 4-6 Weeks Goal 3:: Patient to demonstrate 50% improvement with ADL's and houseworks OH activities Goal Time Frame: 4-6 Weeks Goal 4:: Patient to improve quick dash by 5 points to improve QOL and function Goal Time Frame: 4-6 Weeks Goal 5:: Patient to improve strength RTC/Deltoid to good without pain Goal Time Frame: 4-6 Weeks Rehabilitation Potential Physical Therapy Diagnosis: This patient has right shoulder pain MRI showed tendinosis and G-H OA with pain ,crepitus ,pain with MMT ,decrease ROM impairs ADLS and OH activities thus benefit from skilled PT Rehabilitation Potential: Good Anticipated Interventions Patient/Client Instruction: Educate patient on: Condition and Plan of Care For the Purpose of:: To decrease pain, To increase ROM, To improve muscle performance and motor function, To improve ability to perform ADL's, To increase tolerance to activity/condition/position, To improve ability of physical actions for home/community/work/leisure, To improve health of tissue, To decrease soft tissue restriction, To increase flexibility/ROM and To improve tolerance to AD L's Therapeutic Exercise to Include: Strength training, Postural training, Flexibilty training, Passive ROM, Active ROM and Scapular Strength/Stabilization Comment: RTC For the Purpose of:: To decrease pain, To increase ROM, To improve nutrient delivery to tissue, To increase oxygenation perfusion, To improve health of tissue and To decrease soft tissue restriction Manual Therapy Techniques to Include: Mobilization and Passive ROM Comment: G-H For the Purpose of:: To decrease pain, To increase ROM, To improve nutrient delivery to tissue, To increase oxygenation perfusion, To improve health of tissue and To decrease soft tissue restriction TENS: Yes IF ES: Yes Cryotherapy (ice pack, ice massage): Yes Thermo therapy (hot pack): Yes Ultrasound (thermal/non thermal): Yes For the Purpose of:: To decrease pain, To increase ROM, To improve health of tissue and To decrease soft tissue restriction Text: Thank you for the opportunity to evaluate your patient. For Medicare and Medicare HMO plans, please review the plan of care and approve it. It will need to be FAXED BACK to us at [phone] for Medicare purposes. For Medicare only, by signing this I certify the plan of care. Please let me know if there are questions or concerns regarding this plan of care. Physician Signature: Date:
--- NOTE | 2024-03-21 17:55 | HP.PTDCSUM_ITS ---
Discharge Summary D/C summary: It has been my pleasure to treat PAOLA DE referred by Dr. Chago Valles MD, with the diagnosis of TENDINOSIS SHOULDER for a total of 8 visit(s). Discharge Date: 03/21/24 Please see the following information for a summary of their discharge status. Subjective Subjective: Doing good .. Doing ex' at home Pain Left Shoulder: Pain Intensity (Out of 10): 0 R SH: Pain Intensity (Out of 10): 0 Overall Improvement % Improvement: 90 Objective Objective/Function: POSTURE: rounded shoulders head forward PALPATION: NONE NEURO: denies parestehesia/tingling ,reflexes C5-6-7 2/3 AROM SHOULDER: flexion 155 degrees ,abduction 155 degrees ,ER 90 ,IR L1 PROM: shoulder flexion 160 degrees ,160 degrees abduction ,ER 90 degrees MMT: RTC 5/5 deltoid 4/5 CAPSULAR: milD ight Goals Goal 1:: Patient to be I with HEP for shoulder Goal Progress: Goal Met Goal 2:: Patient to improve AROM shoulder flexion /abduction by 150 degrees to improve OH ADLS Goal Progress: Goal Met Goal 3:: Patient to demonstrate 50% improvement with ADL's and [employer] OH activities Goal Progress: Goal Met Goal 4:: Patient to improve quick dash by 5 points to improve QOL and function Goal Progress: Goal Met Goal 5:: Patient to improve strength RTC/Deltoid to good without pain Goal Progress: Goal Met Plan Plan: D/C D/C Information Discharge Comments: HEP d/c sentence: If there are questions or concerns regarding this patient's physical therapy, please feel free to call me at [phone]. Thank you for the referral of this patient. Sincerely, Reji Siddiqui, PT, Cert MDT, OCS Balance/Gait/Functional tests Balance/Special Test Scores Quick DASH Score: 43.1800 Improvement % Improvement: 90
== END 2024-03-21 19:00 | disposition home or self-care (01) ==
LOC: PT 17:30
PROVIDERS: PCP Family Medicine; Visit Provider Family Medicine
DX: M67.90 Unspecified disorder of synovium and tendon, unspecified site (principal)
CPT/HCPCS: 97110; 97140; 97162; 97530

== ENCOUNTER → 2024-04-02 | Outpatient (CLI) | payer OTHER, SELFPAY ==
--- NOTE | 2024-04-02 15:35 | BD_ITS ---
STUDY: DUAL ENERGY X-RAY ABSORPTIOMETRY / DXA REASON FOR EXAM: Female, 63 years old. Postmenopausal screening TECHNIQUE: Bone Mineral Density (BMD) measurements of lumbar spine and bilateral hips were obtained. COMPARISON: None. FINDINGS: Lumbar Spine (L1-L4): g/cm2 (0.755) / T-score (-2.7) / Z-score (-0.8) Left Femur Total: g/cm2 (0.776) / T-score (-1.4) / Z-score (-0.1) Left Femoral Neck: g/cm2 (0.573) / T-score (-2.5) / Z-score (-0.9) Right Femur Total: g/cm2 (0.736) / T-score (-1.7) / Z-score (-0.4) Right Femoral Neck: g/cm2 (0.559) / T-score (-2.6) / Z-score (-1.1) BD/Dexa Bone Density Study IMPRESSION: The patient is considered osteoporotic as outlined below according to World Beau Organization (WHO) criteria with a high fracture risk. 10 year fracture risk: Major osteoporotic fracture 31%, hip fracture 7.6% Reference Information: The T-score is the number of standard deviations above or below the standard which is normal for young adults at their peak bone mineral density. The World Health Organization (WHO) interprets the T-scores as follows: Above -1 Normal bone density Between -1 and -2.5 Osteopenia Equal to / or below -2.5 Osteoporosis As a practical clinical guideline, osteopenia may be graded as follows: Mild -1 through -1.5 Moderate -1.6 through -2.0 Severe -2.1 through -2.4 The Z-score is the number of standard deviations above or below age-matched controls. A Z-score of less than -1.5 would be considered abnormal. References: 1. NIH Osteoporosis and Related Bone Diseases www osteo.org 2. International Society for Clinical Densitometry www iscd.org 3. National Osteoporosis Foundation www nof.org Electronically Signed: Mikel Woo MD at 18:07 EST ,
== END | disposition home or self-care (01) ==
LOC: OPBD 15:32
PROVIDERS: PCP Family Medicine; Referring Provider Obstetrics & Gynecology; Visit Provider Obstetrics & Gynecology
DX: Z13.820 Encounter for screening for osteoporosis (principal); Z78.0 Asymptomatic menopausal state
CPT/HCPCS: 77080

== ENCOUNTER → 2024-11-08 | Outpatient (CLI) | payer MEDICARE, OTHER, SELFPAY ==
--- NOTE | 2024-11-08 09:03 | BI_ITS ---
EXAM: SCRN MAMM (CAD)W/HAWA BILAT DATE: 11/08/2024 CLINICAL HISTORY: F, Age 64 y/o , SCREENING TECHNIQUE: SCRN MAMM (CAD)W/HAWA BILAT COMPARISON: Prior exam(s) dated 11/03/2023, 10/21/2022, 09/17/2021. FINDINGS: TISSUE DENSITY: There are scattered areas of fibroglandular density. Bilateral Breast Mammographic Findings: No significant masses, calcifications or other abnormalities are identified. BI/SCRN MAMM (CAD)W/HAWA BILAT IMPRESSION: There is no mammographic evidence of malignancy. OVERALL FINAL ASSESSMENT BI-RADS 1: NEGATIVE. RECOMMENDATION: Routine annual follow-up in 1 Year A letter with findings and recommendations will be mailed to the patient. Reading Location: [id number]
--- OUTSIDE RECORDS SUMMARY | 2024-11-08 10:29 | XMS RPT_ITS | CCD ---
Author Organization [facility] CliniSyil Care Team Providers Care Payroll Human Resources Assistant Name Role Phone TANISHA Unavailable Unavailable TANISHA Unavailable Unavailable TANISHA Unavailable Unavailable BRIANDA WHITMAN MD Unavailable Unavailable PROVIDER, UNKNOWN Unavailable Unavailable Dr. Chago Abrams Primary Care Provider Dr. Chago Abrams Referring Provider ANAM Licea Attending Provider Yogesh Ncie Primary Care Provider Dr. Chago Abrams Primary Care Provider Dr. Chago Abrams Referring Provider Dr. Chago Abrams Other Provider Dr. Chago Dixon Attending Provider Yogesh Nice Primary Care Provider Chago Abrams MD Primary Care Provider Chago Abrams MD Primary Care Provider CHAGO ABRAMS Primary Care Unavailable JOHANA GOLDMAN Attending Unavail able JOHANA GOLDMAN Referring Unavail able CHAGO ABRAMS Primary Care Unavailable Chago Abrams MD Primary Care Provider CHAGO ABRAMS Referring Unavailable CHAGO ABRAMS Primary Care Unavailable Chago Abrams Primary Care Unavailable Johana Luna Attending Unavail able Chago Abrams Primary Care Unavailable Chago Abrams Referring Unavailable Chago Abrams Attending Unavailable Chago Abrams Primary Care Unavailable Johana Luna Referring Unavail able Johana Luna Attending Unavail able Chago Abrams Attending Unavailable Chago Abrams Primary Care Unavailable Allergies Allergy Classification Reported Allergen(s) Allergy Type Date of Onset Reaction(s) Facility (8 sources) Pethidine analog; Translations: [OPIOIDS-MEPERID INE AND RELATED] Drug Intolerance 1 Intolerance [facility] Work Phone: (1 source) ALLERGIES NOT ON FILE; Translations: [ALLERGIES NOT ON FILE] Propensity to adverse reactions (disorder) [facility] 2 Repository Medications Current Medications Medication Drug Class(es) Dates Sig (Normalized) Sig (Original) amoxicillin 875 mg / clavulanate 125 mg oral tablet (5 sources) Penicillin-class Antibacterial Start: 04-25-2017 take 1 tablet by mouth every twelve hours Amoxicillin-Pot Clavulanate 875 MG tablet Active 875 mg PO Q12H April 25, 2017 1:00am ascorbic acid 1000 mg oral tablet (12 sources) Vitamin C Start: 02-26-2016 take 1 tablet by mouth once daily Ascorbic Acid (Vitamin C) (Vitamin C) 1,000 MG tablet Active 1000 mg PO DAILY February 26, 2016 1:00am take 1 tablet by mouth once donna y Ascorbic Acid (VITAMIN C) 100 mg tablet Take 100 mg by mouth once daily. Active Comment on above: Take 100 mg by mouth once daily. aspirin 81 mg chewable tablet (5 sources) Platelet Aggregation Inhibitor, Nonsteroidal Anti-inflammatory Drug Start: 6 take 1 tablet by mouth once daily Aspirin 81 MG tablet,chewable Active 81 mg PO DAILY@0800 March 02, 2016 1:00am atorvastatin 20 mg oral tablet (12 sources) HMG-CoA Reductase Inhibitor Start: 1 take 1 tablet by mouth once daily atorvastatin (LIPITOR) 20 mg tablet Take 20 mg by mouth once daily. 07/09/2020 Active Start: 02-26-2016 take 1 tablet by lars th at bedtime Atorvastatin 10 MG tablet Active 10 mg PO AT BEDTIME February 26, 2016 1:00am Comment on above: Take 20 mg by mouth once daily. 12 hr buPROPion hydrochloride 150 mg extended release oral tablet (7 sources) Aminoketone Start: 2020 take 1 tablet by mouth once daily buPROPion SR (ZYBAN SR; WELLBUTRIN SR) 150 mg 12 hr tablet Take 150 mg by mouth once daily. 07/18/2020 Active Comment on above: Take 150 mg by mouth once daily. cholecalciferol 0.025 mg chewable tablet (5 sources) Vitamin D Start: 2015 take 1 tablet by mouth once daily Cholecalciferol (Vitamin D3) (Vitamin D3) 1,000 UNIT tablet,chewable Active 1000 U PO DAILY February 26, 2016 1:00am docusate sodium 100 mg oral capsule (5 sources) Start: 2015 take 2 capsules by mouth twice daily as needed for constipation Docusate Sodium (Dok) 100 MG capsule Active 200 mg PO TWICE DAILY NEEDED as needed for Constipation 60 February 28, 2016 1:00am doxycycline monohydrate 100 mg oral capsule (1 source) Tetracycline-class Drug Start: 2023 End: 2023 take 1 capsule by mouth twice daily doxycycline monohydrate (MONODOX) 100 mg capsule Indications: Tick bite of neck, initial encounter Take 1 capsule by mouth two times a day for 7 days. 14 capsule 02/01/2024 02/08/2024 Active fluticasone propionate 0.05 mg/actuat metered dose nasal spray (7 sources) Corticosteroid Start: 2020 take 2 spray(s) nasal route once daily fluticasone (FLONASE) 50 mcg/actuation nasal spray USE 2 SPRAY(S) IN EACH NOSTRIL ONCE DAILY 06/30/2020 Active Comment on above: USE 2 SPRAY(S) IN EA CH NOSTRIL ONCE DAILY levothyroxine sodium 0.05 mg oral tablet (20 sources) l-Thyroxine Start: 2020 End: 2021 take 1 tablet by mouth once daily EUTHYROX 25 mcg tablet Take 25 mcg by mouth once daily. 0 04/19/2020 08/27/2021 Discontinued Start: 02-28-2016 End: 02-29-2016 take 1 tablet by mouth once daily Levothyroxine 75 MCG tablet Discontinued 75 ug PO DAILY@0600 60 February 28, 2016 1:00am February 29, 2016 10:55am Start: 07-19-2013 End: 02-28-2016 take 1 tablet by mouth once daily levothyroxine (SYNTHROID) 50 mcg tablet Take 1 tablet by mouth once daily. 07/15/2021 Active Comment on above: Take 50 mcg by mouth once daily. Take 25 mcg by mouth once daily. meloxicam 15 mg oral tablet (3 sources) Nonsteroidal Anti-inflammatory Drug Start: 4 take 7.5 mg by mouth once daily meloxicam (MOBIC) 15 mg tablet Take 7.5 mg by mouth once daily. 01/30/2024 Active Multivitamin With Folic Acid (Thera) 1 TABLET tablet (5 sources) Start: 4 take 1 tablet by mouth once daily Multivitamin With Folic Acid (Thera) 1 TABLET tablet Active 1 TABLET PO DAILY January 09, 2014 11:34pm Start: 01-09-2014 take 1 tablet by lars th once daily Multivitamin With Folic Acid (Thera) 1 TABLET tablet Active 1 {tbl} PO DAILY January 09, 2014 12:00am Start: 01-09-2014 take 1 tablet by lars th once daily Multivitamin With Folic Acid (Thera) 1 TABLET tablet Active 1 TABLET PO DAILY January 09, 2014 12:00am Kerrick-3 Fatty Acids (Fish Oil) 500 MG capsule (5 sources) Start: 02-26-2016 take 1 capsule by mouth once daily Kerrick-3 Fatty Acids (Fish Oil) 500 MG capsule Active 500 MG PO DAILY February 26, 2016 9:17pm Start: 02-26-2016 take 1 capsule by mo ut once daily Kerrick-3 Fatty Acids (Fish Oil) 500 MG capsule Active 500 mg PO DAILY February 26, 2016 1:00am Start: 02-26-2016 take 1 capsule by mo uth once daily Kerrick-3 Fatty Acids (Fish Oil) 500 MG capsule Active 500 MG PO DAILY February 26, 2016 1:00am predniSONE 10 mg oral tablet (5 sources) Start: 04-25-2017 take 4 tablets by mouth once daily, then take 3 tablets by mouth once daily, then take 2 tablets by mouth once daily, then take 1 tablet by mouth once daily, then take 1 tablet by mouth every other day Prednisone 10 MG tablet Active 10 mg PO DIRECTED 33 April 25, 2017 1:00am Take 4 tablets daily for 3 days, then 3 daily for 3 days, then 2 daily for 3 days, then 1 a day for 3 days then 1 QOD for 3 doses. tapentadol 50 mg oral tablet (5 sources) Opioid Agonist Start: 04-25-2017 take 1 tablet by mouth four times daily as needed for pain Tapentadol (Nucynta) 50 MG tablet Active 50 mg PO 4 TIMES DAILY NEEDED as needed for Pain April 25, 2017 1:00am valACYclovir 500 mg oral tablet (5 sources) Herpesvirus Nucleoside Analog DNA Polymerase Inhibitor, Herpes Simplex Virus Nucleoside Analog DNA Polymerase Inhibitor, Herpes Zoster Virus Nucleoside Analog DNA Polymerase Inhibitor Start: 04-25-2017 take 1 tablet by mouth twice daily Valacyclovir 500 MG tablet Active 500 mg PO TWICE A DAY April 25, 2017 1:00am Completed/Discontinued Medications Medication Drug Class(es) Dates Sig (Normalized) Sig (Original) metroNIDAZOLE 500 mg oral tablet (5 sources) Nitroimidazole Antimicrobial Start: 02-28-2016 End: 02-29-2016 take 1 tablet by mouth once daily Metronidazole (Flagyl) 500 MG tablet Discontinued 500 mg PO DAILY February 28, 2016 1:00am February 29, 2016 10:56am Problems Active Problems Problem Classification Problem Date Documented Da te Episodic/Chronic Conditions associated with dizziness or vertigo (5 sources) Vertigo; Translations: [Dizziness and giddiness] 03-26-2020 Episodic Coronary atherosclerosis and other heart disease (4 sources) Coronary atherosclerosis; Translations: [Atherosclerotic heart disease of [place] coronary artery without angina pectoris] Onset: 04-12-2024 04-12-2024 Chronic Disorders of lipid metabolism (5 sources) Hyperlipidemia; Translations: [Hyperlipidemia, unspecified] 03-25-2020 Chronic Immunizations and screening for infectious disease (11 sources) Patient encounter status; Translations: [Encounter for screening for COVID-19] Episodic Noninfectious gastroenteritis (5 sources) Non-specific colitis; Translations: [Noninfective gastroenteritis and colitis, unspecified] 03-25-2020 Episodic Nonspecific chest pain (5 sources) Atypical chest pain; Translations: [Other chest pain] 03-26-2020 Episodic Other gastrointestinal disorders (5 sources) Constipation; Translations: [Constipation, unspecified] 03-25-2020 Episodic Other nervous system disorders (5 sources) Paresthesia of hand ; Translations: [Paresthesia of skin] 03-26-2020 Episodic Superficial injury; contusion (1 source) Tick bite; Translations: [Insect bite of unspecified part of neck, initial encounter] 02-01-2024 Episodic Thyroid disorders (5 sources) Hypothyroidism; Translations: [Hypothyroidism, unspecified] 02-29-2016 Chronic Past or Other Problems Problem Classification Problem Date Documented Da te Episodic/Chronic Other non-traumatic joint disorders (1 source) Pain in right shoulder; Translations: [Pain in right shoulder] Onset: 03-20-2024 Episodic Other screening for suspected conditions (not mental disorders or infectious disease) (2 sources) Encounter for screening for osteoporosis; Translations: [Encounter for screening mammogram for malignant neoplasm of breast] Onset: 11-27-2023 Episodic Results Test Name Value Interpretation Reference Range Facility CT CARDIAC SCORING WO IV CON TRASTon 04-12-2024 CT CARDIAC SCORING WO IV CONTRAST Interpreted By: Jose Manuel Howard, STUDY: CT CARDIAC SCORING WO IV CONTRAST; 04/12/2024 11:18 am INDICATION: Signs/Symptoms:HEART DISEASE. ,I25.10 Atherosclerotic heart disease of [place] coronary artery without angina pectoris COMPARISON: None. ACCESSION NUMBER(S): [id number] ORDERING CLINICIAN: CHAGO ABRAMS TECHNIQUE: Using prospective ECG gating, CT scan of the coronary arteries was performed without intravenous contrast. Coronary calcium scoring was performed according to the method of Agatston. FINDINGS: The score and distribution of calcium in the coronary arteries is as follows: LM 2.19 LAD 47.09 LCx 0 RCA 5.04 Total 54.32 The visualized mid/lower ascending thoracic aorta measures 3.7 cm in diameter. The heart is normal in size. No pericardial effusion is present. No gross evidence of mediastinal or hilar lymphadenopathy or masses is identified. The visualized segments of the lungs are normally expanded. The visualized subdiaphragmatic structures appear intact. IMPRESSION: 1. Coronary artery calcium score of 54.32*. *Coronary artery calcium scoring may be helpful in predicting the risk for future coronary heart disease events. According to the [place] College [employer] Foundation Clinical Expert Consensus Task Force, such testing provides important prognostic information in patients with more than one coronary heart disease risk factor. The coronary artery calcium score correlates with the annual risk of a non-fatal myocardial infarction or coronary heart disease . Coronary artery score Annual Risk 0-99 0.4% 100-399 1.3% >400 2.4% These three breakpoints correspond to lower, intermediate and high risk states for future coronary events. Such information should be used, along with appropriate clinical judgment, to make decisions regarding the intensity of risk factor management strategies to treat blood lipids and to modify other non-lipid coronary risk factors. Reference: Aurora P et al. Circulation. 2007; 115:402-426 MACRO: None Signed by: Jose Manuel Howard 04/17/2024 10:46 AM Dictation workstation: [id number] [facility] 04-08-2024 CNPN Telephone (OBGYWM) ----- ZOHREH VAZQUEZ ([id number]) 1960 F Date Time Provider Department 04/08/24 JOHANA GOLDMAN OBGYWM During your visit today, we recorded the following information about you: Johana Goldman MD 04/08/2024 12:48 PM Signed Please notify patient that her BMD shows osteoporosis - recommend follow up with Endocrinology or PCP for discussion of treatment options. Catherine Conti RN 04/08/2024 1:19 PM Signed Patient notified. She plans to contact her PCP. Catherine Conti RN Allergies As of Date: 04/08/2024 Noted Allergy Reaction OPIOIDS-MEPERIDINE AND RELATED 07/24/2020 5 - Intolerance Comments: SEVERELY ILL Date Reviewed: 02/27/2024 Reviewed by: Tresa Roberto MA - Fully Assessed Reason for Visit: Results [95] Prescriptions as of 04/08/2024 - levothyroxine (SYNTHROID) 50 mcg tablet Take 1 tablet by mouth once daily. - meloxicam (MOBIC) 15 mg tablet Take 7.5 mg by mouth once daily. - atorvastatin (LIPITOR) 20 mg tablet Take [...] once daily. Problem List As Of Date: 04/08/2024 (None) Encounter Status:Closed by CATHERINE CONTI on 04/08/24 Normal [facility] Dexa Bone Density Studyon Dexa Bone Density Study [facility] Imaging Services [address] [place] [address] Dexa Bone Density Study MR#: [id number] Acct: [id number] Name: ZOHREH VAZQUEZ Rep #: [id number] : 1960 F 63 From: Pankaj Woo MD PCP: Dr. Chago Abrams MD Status: REG CLI Study: Dexa Bone Density Study Date of Exam: 04/02/24 Exam# [id number] Ordering Dr: Yuan MD [id number] STUDY: DUAL ENERGY X-RAY ABSORPTIOMETRY / DXA REASON FOR EXAM: Female, 63 years old. Postmenopausal screening TECHNIQUE: Bone Mineral Density (BMD) measurements of lumbar spine and bilateral hips were obtained. COMPARISON: None. FINDINGS: Lumbar Spine (L1-L4): g/cm2 (0.755) / T-score (-2.7) / Z-score (-0.8) Left Femur Total: g/cm2 (0.776) / T-score (-1.4) / Z-score (-0.1) Left Femoral Neck: g/cm2 (0.573) / T-score (-2.5) / Z-score (-0.9) Right Femur Total: g/cm2 (0.736) / T-score (-1.7) / Z-score (-0.4) Right Femoral Neck: g/cm2 (0.559) / T-score (-2.6) / Z-score (-1.1) BD/Dexa Bone Density Study IMPRESSION: The patient is considered osteoporotic as outlined below according to World Beau Organization (WHO) criteria with a high fracture risk. 10 year fracture risk: Major osteoporotic fracture 31%, hip fracture 7.6% Reference Information: The T-score is the number of standard deviations above or below the standard which is normal for young adults at their peak bone mineral density. The World Health Organization (WHO) interprets the T-scores as follows: Above -1 Normal bone density Between -1 and -2.5 Osteopenia Equal to / or below -2.5 Osteoporosis As a practical clinical guideline, osteopenia may be graded as follows: Mild -1 through -1.5 Moderate -1.6 through -2.0 Severe -2.1 through -2.4 The Z-score is the number of standard deviations above or below age-matched controls. A Z-score of less than -1.5 would be considered abnormal. References: 1. NIH Osteoporosis and Related Bone Diseases www osteo.org 2. International Society for Clinical Densitometry www iscd.org 3. National Osteoporosis Foundation www nof.org Electronically Signed: Mikel Woo MD at 18:07 EST , CC: Dr Johana Luna MD; Dr. Chago Abrams MD Hand Wood Sander: Signed Normal [facility] PT D/C Summary (1)on 024 PT D/C Summary (1) [facility] Physical Therapy [address] [place] [address] / REHABILITATION SERVICES DISCHARGE SUMMARY MR#: [id number] Acct: [id number] Name: ZOHREH VAZQUEZ Rep #: [id number] : 1960 63 From: Reji Siddiqui PT, Khadra. MD Davis, OCS Referring Dr.: Dr. Chago Abrams MD Status: REG RCR Insurance: [employer] [facility] P[employer]AN Discharge Summary D/C summary: It has been my pleasure to treat ZOHREH VAZQUEZ referred by Dr. Chago Abrams MD, with the diagnosis of TENDINOSIS SHOULDER for a total of 8 visit(s). Discharge Date: 03/21/24 Please see the following information for a summary of their discharge status. Subjective Subjective: Doing good .. Doing ex' at home Pain Left Shoulder: Pain Intensity (Out of 10): 0 R SH: Pain Intensity (Out of 10): 0 Overall Improvement % Improvement: 90 Objective Objective/Function: POSTURE: rounded shoulders head forward PALPATION: NONE NEURO: denies parestehesia/tingling ,reflexes C5-6-7 2/3 AROM SHOULDER: flexion 155 degrees ,abduction 155 degrees ,ER 90 ,IR L1 PROM: shoulder flexion 160 degrees ,160 degrees abduction ,ER 90 degrees MMT: RTC 5/5 deltoid 4/5 CAPSULAR: milD ight Goals Goal 1:: Patient to be I with HEP for shoulder Goal Progress: Goal Met Goal 2:: Patient to improve AROM shoulder flexion /abduction by 150 degrees to improve [place] ADLS Goal Progress: Goal Met Goal 3:: Patient to demonstrate 50% improvement with ADL's and houseworks [place] activities Goal Progress: Goal Met Goal 4:: Patient to improve quick dash by 5 points to improve QOL and function Goal Progress: Goal Met Goal 5:: Patient to improve strength RTC/Deltoid to good without pain Goal Progress: Goal Met Plan Plan: D/C D/C Information Discharge Comments: HEP d/c sentence: If there are questions or concerns regarding this patient's physical therapy, please feel free to call me at [phone]. Thank you for the referral of this patient. Sincerely, Reji Siddiqui PT, Cert MDT, OCS Balance/Gait/Functional tests Balance/Special Test Scores Quick DASH Score: 43.1800 Improvement % Improvement: 90 03/21/24 1775 CC: Dr. Chago Abrams MD JLA Signed Normal [facility] CNOVon 02-27-2024 CNOV Office Visit (OBGYWM ) ----- ZOHREH VAZQUEZ ([id number]) 1960 F Date Time Provider Department 02/27/24 11:20 AM JOHANA GOLDMAN OBGYWM During your visit today, we recorded the following information about you: Blood pressure Weight Height 120/74 72.6 kg 1.61 m Johana Goldman MD 02/27/2024 1:17 PM Signed Duct Installer offered: Patient declines. Zohreh is a 63 year old who presents for an annual gynecologic exam without complaints. Postmenopausal: Yes HRT use: No. Last Pap: normal HPV: N/A History of abnormal pap: No Last mammogram: 2023 normal History of abnormal mammogram: No Sexually active: No History of STDS: None Patient concerns for STD exposure: No. 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 History Comments: Sexual Activity: Not Currently; Male Contraception: No contraception data on record PAST MEDICAL HISTORY Diagnosis Date Arthritis right shoulder Elevated cholesterol Hypothyroidism Pre-diabetes PAST SURGICAL HISTORY Procedure Laterality Date TONSILLECTOMY AND ADENOIDECTOMY VAGINAL HYSTERECTOMY FAMILY HISTORY Problem Relation Age of Onset Breast Cancer Mother Diabetes Mother Emphysema Father Leukemia Son SOCIAL HISTORY Social History Tobacco Use Smoking status: Never Smokeless tobacco: Never Vaping Use Vaping status: Never Used Substance Use Topics Alcohol use: Yes Drug use: Never REVIEW OF SYSTEMS Abdomen: No abdominal pain, nausea, vomiting, diarrhea, or constipation. No bloating, early satiety, indigestion, or increased flatulence. Bladder: No dysuria, gross hematuria, urinary frequency, urinary urgency, or incontinence Breast: No breast lumps, nipple d/c, overlying skin changes, redness or skin retraction Allergies and current medication updated:Yes SENSITIVE EXAM: The sensitive examination was discussed with the Patient or Patient's Authorized Padder Cushion. As applicable, any other physician, advance practice provider, medical student, or other health professional student that will be observing or involved in the sensitive examination for educational or training purposes was discussed with the Patient or Authorized Padder Cushion. The Patient or Authorized Padder Cushion has agreed to proceed with the sensitive examination. (Sensitive examination includes inspection and/or palpation of the breasts, pelvis, prostate and anorectal regions). EXAM: BP 120/74 Ht 5' 3.386 (1.61m) Wt 160 lb (72.6kg) BMI 28.00 kg/(m2). GENERAL: pleasant, female in no apparent distress HEENT: Normocephalic, atraumatic, mucus membranes moist, and no lesions NECK: Supple, full range of motion, no adenopathy, and thyroid normal DERMATOLOGY: Normal, without lesions, non-icteric, and non-hirsute BREAST: soft, non-tender, symmetric, no dominant mass, normal nipple-areolar complex, no lymphadenopathy, and no nipple discharge CHEST: Normal inspiratory effort ABDOMEN: soft, non-tender, and no masses PELVIC: Pt declined BIMANUAL: pt declined RECTOVAGINAL: deferred NEURO: alert and oriented x3,exam grossly non-focal EXTREMITIES: normal ASSESSMENT/PLAN: 1) Health maintenance: Pap/HPV screening no longer needed Mammogram ordered Mammogram up to date Nutrition, exercise and routine health maintenance exams reviewed. Calcium/Vitamin D supplementation information provided. Colon cancer screening: up to date with screening BMD: ordered 2) Follow up one year or sooner as needed Johana Luna MD Referring Provider: JOHANA GOLDMAN [[id number]] Allergies As of Date: 02/27/2024 Noted Allergy Reaction OPIOIDS-MEPERIDINE AND RELATED 07/24/2020 5 - Intolerance Comments: SEVERELY ILL Date Reviewed: 02/27/2024 Reviewed by: Tresa Roberto MA - Fully Assessed Reason for Visit: Yearly Exam [187] Primary Visit Diagnosis:Encounter for gynecological examination (general) (routine) without abnormal findings [Z01.419] Prescriptions as of 02/27/2024 - levothyroxine (SYNTHROID) 50 mcg tablet Take 1 tablet by mouth once daily. - meloxicam (MOBIC) 15 mg tablet Take 7.5 mg by mouth once daily. - atorvastatin (LIPITOR) 20 mg tablet Take [...] once daily. Problem List As Of Date: 02/27/2024 (more content not included)... Normal [facility] Inital Evaluation (1) - PTon 02-14-2024 Inital Evaluation (1) - PT [facility] Physical Therapy [facility] [address] [place] [address] / REHABILITATION SERVICES INITIAL EVALUATION MR#: [id number] Acct: [id number] Name: ZOHREH VAZQUEZ Rep #: [id number] : 1960 63 From: Khadra Romeo PT. T, OCS Referring Dr.: Dr. Chago Abrams MD Status: REG [facility] Insurance: [employer] SELF PAY INSURANCE Patient's Visit Information Visit Information Visit Information: ZOHREH VAZQUEZ is a 63 year old F referred to Physical Therapy by Dr. Chago Abrams MD with a diagnosis of TENDINOSIS SHOULDER. Date of Evaluation: 02/14/24 Physical Therapist: Reji Siddiqui PT, Cert T, OCS Visit Plan Duration: 4 Weeks Plan: PT INTERVENTIONS RTC/SCAPULAR STRENGTHENING RTC ,POSTURAL EX'S .MANUAL THERAPY G-H JOINT MOBS 2-3 , ,ROM ,AND MODALTIES PRN Subjective Subjective: This 63 y/o female presents to physical therapy with right shoulder tendinosis . Patient has had shoulder pain 3 months. Pain s een chiropractor did not helped. 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 There is a small glenohumeral joint effusion. Patient was prescribed meloxicam. Patient pain located global lateral deltoid occasional . Patient symptoms worse and aggravating factors lifting arm [place] ,affects ADLS and activities above 90 degrees. Pain affects sleeping. Alleviating factors rest. Patient symptoms affects QOL and function. Patient denies paresthesia/tingling . Patient goals to have no pain function. SOCAIL;: Pain Left Shoulder: Pain Intensity (Out of 10): 5 Pain Intensity Range: 10 Objective Objective: POSTURE: rounded shoulders head forward PALPATION: tender AC region NEURO: denies parestehesia/tingling ,reflexes C5-6-7 2/3 AROM SHOULDER: flexion 120 degrees ,abduction 120 degrees ,ER 85 ,IR L1( crepitus noted)-G-H PROM: shoulder flexion 140 degrees ,140 degrees abduction ,ER 90 degrees MMT: RTC 4/5 pain deltoid 4-/5 pain CAPSULAR: mil/mod tight SCAPULAR -HUMERAL FUNCTION: 1:1 Special Tests R Shoulder External Rotation Lag Test - RC Tear: Negative R Shoulder Lift Off Test - Subscapular Tear: Negative R Shoulder Drop Sign - IS Test: Negative R Shoulder Empty Can - SS: Positive R Shoulder Belly Press - SupScap: Negative R Shoulder Neer - Impingement: Positive R Shoulder Logan Ronald - Impingement: Positive R Shoulder Shrug Sign - OA/Adhesive Capsulitis: Positive Balance/Special Test Scores Quick DASH Score: 43.1800 Goals Goal 1:: Patient to be I with HEP for shoulder Goal Time Frame: 4-6 Weeks Goal 2:: Patient to improve AROM shoulder flexion /abduction by 150 degrees to improve OH ADLS Goal Time Frame: 4-6 Weeks Goal 3:: Patient to demonstrate 50% improvement with ADL's and houseworks OH activities Goal Time Frame: 4-6 Weeks Goal 4:: Patient to improve quick dash by 5 points to improve QOL and function Goal Time Frame: 4-6 Weeks Goal 5:: Patient to improve strength RTC/Deltoid to good without pain Goal Time Frame: 4-6 Weeks Rehabilitation Potential Physical Therapy Diagnosis: This patient has right shoulder pain MRI showed tendinosis and G-H OA with pain ,crepitus ,pain with MMT ,decrease ROM impairs ADLS and OH activities thus benefit from skilled PT Rehabilitation Potential: Good Anticipated Interventions Patient/Client Instruction: Educate patient on: Condition and Plan of Care For the Purpose of:: To decrease pain, To increase ROM, To improve muscle performance and motor function, To improve ability to perform ADL's, To increase tolerance to activity/condition/positi on, To improve ability of physical actions for home/community/work/leisu re, To improve health of tissue, To decrease soft tissue restriction, To increase flexibility/ROM and To improve tolerance to ADL's Therapeutic Exercise to Include: Strength training, Postural training, Flexibilty training, Passive ROM, Active ROM and Scapular Strength/Stabilization Comment: RTC For the Purpose of:: To decrease pain, To increase ROM, To improve nutrient delivery to tissue, To increase oxygenation perfusion, To improve health of tissue and To decrease soft tissue restriction Manual Therapy Techniques to Include: Mobilization and Passive ROM Comment: G-H For the Purpose of:: To decrease pain, To increase ROM, To improve nutrient delivery to tissue, To increase oxygenation perfusion, To improve health of tissue and To decrease soft tissue restriction TENS: Yes IF ES: Yes Cryotherapy (ice pack, ice massage): Yes Thermo therapy (hot pack): Yes Ultrasound (thermal/non thermal): Yes For the Purpose of:: To decrease pain, To increase ROM, To improve he (more content not included)... Normal [facility] Upper Ext Joint Only(Routine )on 02-08-2024 Upper Ext Joint Only(Routine) [facility] Imaging Services [address] [place] [address] [id number] Upper Ext Joint Only(Routine) MR#: [id number] Acct: [id number] Name: ZOHREH VAZQUEZ Rep #: [id number] : 1960 F 63 From: Eric Daugherty MD PCP: Dr. Chago Abrams MD Status: REG CLI Study: Upper Ext Joint Only(Routine) Date of Exam: Exam# [id number] Ordering Dr: Chago Abrams MD [id number] STUDY: MRI RIGHT SHOULDER REASON FOR EXAM: Female, 63 years old. SHOULDER PAIN TECHNIQUE: Standardized fat and water weighted pulse sequences were obtained in all 3 orthogonal planes. COMPARISON: Right shoulder radiographs dated 05/31/2023. FINDINGS: There is supraspinatus and infraspinatus tendinosis without a full-thickness tear. Normal subscapularis tendon. Normal teres minor tendon. Normal supraspinatus muscle. Normal infraspinatus muscle. Normal subscapularis muscle. Normal teres minor muscle. There is glenohumeral arthrosis with joint space narrowing, marginal osteophyte formation, and moderate to high-grade chondromalacia. There is a small glenohumeral joint effusion. Normal humeral head and visualized proximal humerus. Normal biceps labral complex. Normal intracapsular long biceps tendon. Normal labrum. Normal capsulo-ligamentous complex. Normal rotator interval. There is mild acromioclavicular arthrosis. There is a Type II morphology (curved), with a neutral orientation. There is a small amount of subacromial-subdeltoid bursal fluid. Normal visualized coracohumeral and coracoacromial ligaments. Normal quadrilateral space. Normal axillary space. Normal deltoid muscle. Normal trapezius muscle. MRI/Upper Ext Joint Only(Routine) IMPRESSION: Supraspinatus and infraspinatus tendinosis without a full-thickness rotator cuff tear. Mild acromioclavicular arthrosis. Mild subacromial-subdeltoid bursitis. 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 Electronically Signed: Eric Daugherty MD at 11:43 EDT , CC: Dr. Chago Abrams MD Hand Wood Sander: [facility] Office Visit ([facility] ) ----- ZOHREH VAZQUEZ ([id number]) 1960 F Date Time Provider Department 02/01/24 1:00 PM JOSHUA EASTMAN [facility] During your visit today, we recorded the following information about you: Temperature Pulse Respiration Blood pressure 97 degrees 83/minute 20/minute 164/92 Weight 75 kg Joshua Eastman APRN.RAILROAD TRACK INSPECTOR 02/01/2024 1:37 PM Signed This note was created using [employer]. Subjective Zohreh Vazquez is a 63 year [...] with PCP. - DOXYCYCLINE MONOHYDRATE 100 MG EVAN Eastman APRN.CNP Allergies As of Date: 02/01/2024 Noted Allergy Reaction OPIOIDS-MEPERIDINE AND RELATED 07/24/2020 5 - Intolerance Comments: SEVERELY ILL Date Reviewed: 02/01/2024 Reviewed by: Joshua Eastman APRN.RAILROAD TRACK INSPECTOR - Fully Assessed Reason for Visit: Tick [...] Status:Closed by JOSHUA EASTMAN on 02/01/24 Normal [facility] SCRN MAMM (CAD)W/HAWA BILATo n 11-03-2023 SCRN MAMM (CAD)W/HAWA BILAT [facility] Imaging Services [address] [address] SCRN MAMM (CAD)W/HAWA BILAT MR#: [id number] Acct: [id number] Name: ZOHREH VAZQUEZ Rep #: [id number] : 1960 F 63 From: Kai hess MD PCP: Dr. Chago Abrams MD Status: [facility] Study: SCRN MAMM (CAD)W/HAWA BILAT Date of Exam: 10/09 10/01 Exam# [id number] Ordering Dr: Yuan MD [id number] MAMMOGRAPHY - BILATERAL SCREENING REASON FOR EXAM: Female, 63 years old. Routine annual screening examination. PERTINENT HISTORY: Mother with breast cancer. TECHNIQUE: Digital bilateral breast hawa (3D mammographic acquisition) in the CC and MLO projections. 2-D mediolateral oblique (MLO) and craniocaudad (CC) views of both breasts were obtained. CAD: Full Field Digital Mammography with Computer Added Detection was performed. COMPARISON: Comparison is made with prior study dated October 21, 2022 and September 17, 2021. FINDINGS: Breast Composition: There are scattered areas of fibroglandular density. There are no dominant masses or suspicious calcifications. Stable small benign-appearing bilateral axillary lymph nodes. Stable 4.7 mm lymph node in the deep upper lateral aspect of the left breast. No other significant abnormalities are identified. There has been no significant change since the prior study. BI/SCRN MAMM (CAD)W/HAWA BILAT IMPRESSION: Stable bilateral screening mammogram. Yearly follow-up mammogram recommended. (A) ASSESSMENT CATEGORY: BIRADS Category 2: Benign. A letter regarding these results will be sent to the patient by the facility within 30 days. Approximately 10% of breast cancers are not detected by mammography. A normal mammogram should not delay biopsy of a clinically suspicious abnormality. [id number] Electronically Signed: Kai Ho MD at 9:53 EDT , CC: Dr Johana Luna MD; Dr. Chago Abrams MD Hand Wood Sander: Signed Normal [facility] Basophil percentageon 2021 Bilirubin [Mass/Vol] 0.40 mg/dL 0.20-1.00 [facility] Work Phone: Comment on above: For patients on eltr ombopag therapy, use of Dimension [place] TBIL is not recommended. Chloride [Moles/Vol] 110 mmol/L 98-107 [facility] Work Phone: Cholesterol [Mass/Vol] 174 mg/dL <200 [facility] Work Phone: Comment on above: <200 mg/dL Desirable 200-240 mg/dL Borderline >240 mg/dL High Risk Glucose [Mass/Vol] 95 mg/dL 74-106 [facility] Work Phone: Potassium [Moles/Vol] 3.9 mmol/L 3.5-5.1 [facility] Work Phone: Protein [Mass/Vol] 6.8 g/dL 6.4-8.2 [facility] Work Phone: Sodium [Moles/Vol] 141 mmol/L 136-145 [facility] Work Phone: Triglyceride [Mass/Vol] 116 mg/dL [facility] Work Phone: Comment on above: The drugs N-Acetylcy steine and Metamizole may falsely depress this assay.Serum Triglycerides Reference Interval Normal <150 mg/dL Borderline high 150 - 199 mg/dL High 200 - 499 mg/dL Very High > or = 500 mg/dL Laboratory - Chemistry and C hemistry - challengeon 07-12-2021 ALP [Catalytic activity/Vol] 51 U/L 45-117 [facility] Work Phone: ALT [Catalytic activity/Vol] 61 U/L 13-56 [facility] Work Phone: CO2 [Moles/Vol] 28.0 mmol/L 21.0-32.0 [facility] Work Phone: Free T4 [Mass/Vol] 0.81 ng/dL 0.76-1.46 [facility] Work Phone: Globulin (S) [Mass/Vol] 3.0 g/dL 2.2-4.2 [facility] Work Phone: Urea nitrogen/Creatinine [Mass ratio] 23.8 mg/mg 10-20 [facility] Work Phone: No Panel Informationon 07-12 Estimated GFR (MDRD) Amer 83 mL/min >60 [facility] Work Phone: Comment on above: GFR Calc Estimated GFR (MDRD) Non-Af Amer 69 mL/min >60 [facility] Work Phone: Comment on above: Non- GFR Calc Free Triiodothyronine (T3) pg/dL 2.8 pg/mL 2.18-3.98 [facility] Work Phone: Thyroid Stimulating Hormone (TSH) 2.18 uIU/mL 0.358-3.74 [facility] Work Phone: Serum or plasma albumin roland urement (mass/volume)on 07-12-2021 Albumin [Mass/Vol] 3.8 g/dL 3.2-5.0 [facility] Work Phone: Serum or plasma albumin/glob ulin mass ratioon 07-12-2021 Albumin/Globulin [Mass ratio] 1.3 {ratio} 0.9-2.4 [facility] Work Phone: Serum or plasma calcium roland urement (mass/volume)on 07-12-2021 Calcium [Mass/Vol] 9.1 mg/dL 8.5-10.1 [facility] Work Phone: Serum or plasma cholesterol in HDL measurement (mass/volume)on 07-12-2021 Cholesterol in HDL [Mass/Vol] 54 mg/dL [facility] Work Phone: Comment on above: The drugs N-Acetylcy steine and Metamizole may falsely depress this assay. Reference Range HDL <40 mg/dL Low HDL Cholesterol HDL >or= 60 mg/dL High HDL Cholesterol Serum or plasma cholesterol in VLDL measurement (mass/volume)on 07-12-2021 Cholesterol in VLDL [Mass/Vol] 23 mg/dL 5-40 [facility] Work Phone: Serum or plasma creatinine m easurement (mass/volume)on 07-12-2021 Creatinine [Mass/Vol] 0.88 mg/dL 0.55-1.02 [facility] Work Phone: Comment on above: The validity of the calculated GFR & GFRAA in patients over 70 years has not been determined. Clinical correlation is essential. Serum or plasma low density lipoprotein (LDL) cholesterol measurement (mass/volume)on 07-12-2021 Cholesterol in LDL [Mass/Vol] 97 mg/dL 0-130 [facility] Work Phone: Serum or plasma urea nitroge n measurement (mass/volume)on 07-12-2021 Urea nitrogen [Mass/Vol] 21 mg/dL 7-18 [facility] Work Phone: Thin prep Papanicolaou smear with manual screeningon 07-12-2021 Thin prep Papanicolaou smear with manual screening 25 U/L 15-37 [facility] Work Phone: Thin prep Papanicolaou smear with manual screening 3 5-15 [facility] Work Phone: No Panel Informationon 06-03 POC SARS CoV-2 Antigen Negative [facility] Work Phone: MuSK ANITBODY TEST [QUEST]on 06-23-2017 MuSK ANITBODY TEST [QUEST] Normal [facility] Comment on above: Result Comment: _MuS K ANTIBODY TEST_MUSK ANTIBODY TESTReported: 06/23/2017 17:40 Status=F TEST RESULT FLAG RANGE UNITS MUSK ANTIBODY TEST see below 06/23/17.1751.rfl.COMPLETE.MILR .20632-2 YDQVE DCFEDCD--------SBQAY--BRL . RANGE---INTERPRETATIONNEGATIVEThis test did not detect abnormal levels of anti-MuSKantibodies.TECHNICAL RESULTS --Interpretive Result Table INTERPRETIVE RESULT: NegativeTEST: anti-MuSKTECHNICAL RESULT: <1:10REFERENCE RANGE: Negative <1:10, Borderline 1:10, Positive>=1:20 ----COMMENTSComments: This result does not exclude a diagnosis ofMyasthenia Gravis.Recommendations: Health care providers, please contact [employer] Client Services Department [phone] if you wish to speak with a [...] Luna, et al. (2005) COLEEN 293: 1906-14. (PMID:63505719)2. KINJAL Renee, et al. (2000) Postgrad Med 107: 211-4,220-2. (PMID: 58998092)3. Mei-Sameer S et al. (2014) J Autoimmun 52: 90-100.(PMID: 86840182)4. AlviniEvelio, et al. (2013) Autoimmun Rev 12: 931-5. (PMID:26255020)This test was developed and its analytical performancecharacteristics have been determined by [employer].It has not been cleared or approved by the U.S. Food andDrug Administration. This assay has been validated pursuantto the CLIA regulations and is used for clinical purposes.Laboratory oversight provided by Henrique Ching M.D.,F.A.A.N., CLIA license addison, [employer] (CLIA #[id number])Testing performed at:[employer] [address] [place], [place] [address]Test performed by [employer] [address] [place] [address] [employer] oversight provided by Henrique Ching M.D., F.A.A.N., CLIA license addison, [employer](CLIA #[id number])Test Reported by [facility],[address] [place] [address] 32521Cismlcxbess Abdi M.D., Ph.D., Director of [phone], CLIA [id number] Performed By: #### 2 [id number] ####[facility],[address] [place] [address] ACETYLCHOLINE MODULATING REC EPTOR AB[QU]on 06-22-2017 Acetaminophen mass conc Normal [facility] Comment on above: Result Comment: _ACE TYLCHOLINE MODULATING RECEPTOR AB_ACETYLCHOLINE RECEPTOR MODULATING ANTIBODYReported: 06/22/2017 15:54 Status=F TEST RESULT FLAG RANGE UNITS Acetylcholine Rec Mod Ab 10 % 06/22/17.1606.rfl.COMPLETE.[facility] .56254-1Jtnur: % binding inhibition Reference Range: < 32% BINDING INHIBITIONThis test was developed and its analyticalperformance characteristics have been determinedby [email or web address] [facility]. It has not been cleared or approved by[facility]. This assay has been validated pursuant to theIA regulations and is used for clinicalpurposes.Test performed by [email or web address] [address] [employer]ty[employer]ut Director: Ashtyn Sadler MD,PHD,MBATest Reported by [facility],[email or web address] [facility],[address] [place] [address] 16148Yroewrwbess Abdi M.D., Ph.D., Director of [phone], [place] [id number] Performed By: #### 2 61912 ####[facility],[address] [place] [address] ACETYLCHOLINE REC BIND AB [Q UEST]on 06-21-2017 Acetaminophen mass conc Normal [facility] Comment on above: Result Comment: _ACE TYLCHOLINE REC BIND AB_ACETYLCHOLINE RECEPTOR BINDING ANTIBODYReported: 06/20/2017 09:45 Status=F TEST RESULT FLAG RANGE UNITS ACETYLCHOLINE REC BINDING <0.30 <=0.30 nmol/L 06/20/17.0957.rfl.JOSE.[facility] .33242-6 Reference Range: Negative: <=0.30 nmol/L Equivocal: 0.31-0.49 nmol/L Positive: >=0.50 nmol/LTest Performed by [facility],[employer] [facility],[address] [place] [address] [id number] Abdi M.D., Ph.D., Director of [phone], [facility] [id number] Performed By: #### 2 [id number] ####[facility],[address] [place] [address] ACETYLCHOLINE RECEPTOR BLOCK ING AB [QU]on 06-21-2017 Acetaminophen mass conc Normal [facility] Comment on above: Result Comment: _ACE TYLCHOLINE REC BLOC AB_ACETYLCHOLINE RECEPTOR BLOCKING ANTIBODYReported: 06/19/2017 19:48 Status=F TEST RESULT FLAG RANGE UNITS ACETYLCHOLINE REC BLOC AB <15 <15 % inhibit 06/19/17.2000.rfl.COMPLETE.AMRR .49069-9Gfdsu are % of inhibition.Test Performed by [employer] [email or web address] [facility],[address] [place] [address] 11262Ulpjvejbess Abdi M.D., Ph.D., Director of [phone], [facility] [id number] Performed By: #### 2 [id number] ####[facility],[address] [place] [address] Vital Signs Date Time Vital Sign Value Performing Clinician Nallely amaro 02-27-2024 11:20-0500 Body height 161 cm Johana Mari MD Work Phone: [facility] 02-27-2024 11:20-0500 Body mass index (BMI) [Ratio] 28 kg/m2 Johana Mari MD Work Phone: [facility] 02-27-2024 11:20-0500 Body weight 72.58 kg Johana Mari MD Work Phone: [facility] 02-27-2024 11:20-0500 Diastolic blood pressure 74 mm[Hg] Johana Mari MD Work Phone: [facility] 02-27-2024 11:20-0500 Systolic blood pressure 120 mm[Hg] Johana Mari MD Work Phone: [facility] 02-01-2024 12:55-0400 Body mass index (BMI) [Ratio] 28.38 kg/m2 Joshua Eastman APRN.CNP Work Phone: [facility] 02-01-2024 12:55-0400 Body temperature 97 [degF] Joshua Moomaw COUNTER INSTALLER.RAILROAD TRACK INSPECTOR Work Phone: [facility] 02-01-2024 12:55-0400 Body weight 75 kg Joshua Moomaw COUNTER INSTALLER.RAILROAD TRACK INSPECTOR Work Phone: [facility] 02-01-2024 12:55-0400 Diastolic blood pressure 92 mm[Hg] Joshua Moomaw COUNTER INSTALLER.RAILROAD TRACK INSPECTOR Work Phone: [facility] 02-01-2024 12:55-0400 Heart rate 83 /min Joshua Moomaw COUNTER INSTALLER.RAILROAD TRACK INSPECTOR Work Phone: [facility] 02-01-2024 12:55-0400 Respiratory rate 20 /min Joshua Moomaw COUNTER INSTALLER.RAILROAD TRACK INSPECTOR Work Phone: [facility] 02-01-2024 12:55-0400 SaO2% (BldA) [Mass fraction] 97 % Joshua Moomaw COUNTER INSTALLER.RAILROAD TRACK INSPECTOR Work Phone: [facility] 02-01-2024 12:55-0400 Systolic blood pressure 164 mm[Hg] Joshua Moomaw COUNTER INSTALLER.RAILROAD TRACK INSPECTOR Work Phone: [facility] 02-23-2023 11:19-0500 Body height 162.6 cm Johana Mari MD Work Phone: [facility] 02-23-2023 11:19-0500 Body weight 69.85 kg Johana Mari MD Work Phone: [facility] 02-23-2023 11:19-0500 Diastolic blood pressure 82 mm[Hg] Johana Mari MD Work Phone: [facility] 02-23-2023 11:19-0500 Systolic blood pressure 132 mm[Hg] Johana Mari MD Work Phone: [facility] 08-27-2021 09:36-0400 Body height 162.6 cm Johana Mari MD Work Phone: [facility] 08-27-2021 09:36-0400 Body weight 74.84 kg Johana Mari MD Work Phone: [facility] 08-27-2021 09:36-0400 Diastolic blood pressure 84 mm[Hg] Johana Mari MD Work Phone: [facility] 08-27-2021 09:36-0400 Systolic blood pressure 126 mm[Hg] Johana Mari MD Work Phone: [facility] 06-03-2021 07:24-0500 Body height 162.[address] Chago Arbams Work Phone: [facility] Work Phone: 06-03-2021 07:24-0500 Body mass index (BMI) [Ratio] 27.4 kg/m2 Dr. Chago Abrams Work Phone: [facility] Work Phone: 06-03-2021 07:24-0500 Body temperature 97.4 [degF] Dr. Chago Abrams Work Phone: [facility] Work Phone: 06-03-2021 07:24-0500 Body weight 72.[address] Chago Abrams Work Phone: [facility] Work Phone: 06-03-2021 07:24-0500 Diastolic blood pressure 76 mm[Hg] Dr. Chago Abrams Work Phone: [facility] Work Phone: 06-03-2021 07:24-0500 Heart rate 76 /min Dr. Chago Abrams Work Phone: [facility] Work Phone: 06-03-2021 07:24-0500 Respiratory rate 16 /min Dr. Chago Abrams Work Phone: [facility] Work Phone: 06-03-2021 07:24-0500 SaO2% (BldA) [Mass fraction] 98 % Dr. Chago Abrams Work Phone: [facility] Work Phone: 06-03-2021 07:24-0500 Systolic blood pressure 116 mm[Hg] Dr. Chago Abrams Work Phone: [facility] Work Phone: Encounters Encounter Date Encounter Type Care Provider Facility Start: 04-12-2024 End: 04-12-2024 Subsequent hospital visit by physician [address] Comment on above: Atherosclerotic hear t disease of [place] coronary artery without angina pectoris Start: 04-12-2024 End: 04-12-[address] [facility] Start: 04-08-2024 End: 04-08-2024 Telephone encounter Johana Mari MD Work Phone: OB/Gynecology Comment on above: Results Start: 04-02-2024 End: 04-02-2024 ambulatory Chago Abrams Facility:[facility] Start: 03-21-2024 End: 03-21-2024 ambulatory Chago Abrams Facility:[facility] Start: 02-27-2024 End: 02-27-2024 ambulatory JOHANA MARI Facility:[facility] Start: 02-27-2024 End: 02-27-2024 Patient encounter procedure Johana Mari MD Work Phone: OB/Gynecology Comment on above: Encounter for gyneco logical examination (general) (routine) without abnormal findings (Primary Dx) Start: 02-27-2024 End: 02-27-2024 Patient encounter status Johana Mari MD Work Phone: [facility] Start: 02-08-2024 End: 02-08-2024 ambulatory Chago Abrams Facility:[facility] Start: 02-01-2024 End: 02-01-2024 ambulatory CHAGO ABRAMS Facility:[facility] Start: 02-01-2024 End: 02-01-2024 Patient encounter procedure Joshua Eastman COUNTER INSTALLER.RAILROAD TRACK INSPECTOR Work Phone: [facility] Comment on above: Tick bite of neck, i nitial encounter (Primary Dx) Start: 11-03-2023 End: 11-03-2023 ambulatory Chago Abrams Facility:[facility] Start: 02-24-2023 Telephone encounter Johana Mari MD Work Phone: [facility] Comment on above: Orders Start: 02-23-2023 End: 02-23-2023 Patient encounter procedure Johana Mari MD Work Phone: OB/Gynecology Comment on above: Encounter for gyneco logical examination (general) (routine) without abnormal findings (Primary Dx); Encounter for screening mammogram for breast cancer; Establishing care with new doctor, encounter for Start: 02-23-2023 End: 02-23-2023 Patient encounter status Johana Mari MD Work Phone: [facility] Start: 10-21-2022 End: 10-21-2022 ambulatory [facility] Work Phone: Start: 10-21-2022 End: 10-21-2022 Patient encounter procedure [facility] Work Phone: Start: 09-12-2022 Telephone encounter Johana Mari MD Work Phone: OB/Gynecology Comment on above: Mammogram Order Start: 01-04-2022 Non-patient / Non-visit Dr. Anam Abrams Work Phone: [facility] Start: 01-04-2022 End: 01-04-[address] Chago Abrams Work Phone: [facility] Work Phone: Start: 01-04-2022 End: 01-04-2022 Patient encounter procedure Dr. Chago Abrams Work Phone: [facility] Start: 09-17-2021 End: 09-17-[address] Chago Abrams Work Phone: [facility]Outpatient Breast Imaging Start: 08-27-2021 End: 08-27-2021 Patient encounter procedure Johana Mari MD Work Phone: OB/Gynecology Comment on above: Encounter for gyneco logical examination (general) (routine) without abnormal findings (Primary Dx); Encounter for screening mammogram for malignant neoplasm of breast; Encounter for screening for malignant neoplasm of colon Start: 08-27-2021 End: 08-27-2021 Patient encounter status Johana Mari MD Work Phone: OB/Gynecology Start: 07-12-2021 End: 07-12-[address] Chago Abrams Work Phone: [facility] Start: 06-03-2021 End: 06-03-[address] Chago Abrams Work Phone: [facility] Start: 06-16-2017 End: 06-16-2017 Ambulatory [facility] Procedures Date Procedure Procedure Detail Performing Clinician Start: 10-21-2022 Screening mammography Start: 01-04-2022 Radionuclide imaging of perfusion of myocardium under exercise stress Dr. Chago Abrams Work Phone: Start: 09-17-2021 End: 09-17-[address] Chago Abrams Work Phone: Start: 09-11-2020 Mammography Johana Mari MD Work Phone: Plan of Treatment Date Care Activity Detail Author Start: 2033 RSV Vaccine (1 - 1-d ose 75+ series) RSV Vaccine (1 - 1-dose 75+ series) [facility] Start: 02-28-2025 End: 02-28-2025 Patient encounter procedure 02/28/2025 11:20 AM EST Office Visit OB/Gynecology [address] [place] [address] Johana Goldman MD [address] [place] [address] Annual OB/Gynecology Comment on above: Annual Start: 11-02-2024 Screening for malign ant neoplasm of breast Mammogram Screening [facility] Start: 10-03-2024 COLOGUARD (FIT-DNA) COLOGUARD (FIT-D NA) [facility] Start: 10-03-2024 COLORECTAL CANCER SCREENING COLORECTAL CANCER SCREENING [facility] Start: 10-03-2024 Screening for malign ant neoplasm of colon [facility] Start: 02-27-2024 End: 02-27-2024 Patient encounter procedure 02/27/2024 11:20 AM EST Office Visit OB/Gynecology [address] [place], [place] [id number] Johana Goldman MD [address] [place] [address] Annual OB/Gynecology Comment on above: Annual Start: 12-10-2023 Covid-19 Vaccine ( season) Covid-19 Vaccine ( season) [facility] Start: 12-10-2023 Influenza vaccination Influenza Vacc ine (#1) [facility] Start: 10-22-2023 Mammography Mammogram Screening [facility] Start: 07-29-2023 Advance Directive Discussion Advance Directive Discussion [facility] Start: 07-29-2023 Pneumococcal Vaccine : 65+ (2 of 2 - PCV) Pneumococcal Vaccine: 65+ (2 of 2 - PCV) [facility] Start: 07-29-2023 Screening for osteoporosis Bone Density Screening [facility] Start: 12-09-2022 Covid-19 Vaccine ( season) Covid-19 Vaccine ( season) [facility] Start: 12-09-2022 Influenza vaccination C [facility] Start: 09-17-2022 Mammography MAMMOGRAM [facility] Start: 04-10-2022 DEPRESSION ASSESSMENT DEPRESSION ASS ESSMENT [facility] Start: 12-09-2021 Influenza vaccination INFLUENZ A (Season Ended) [facility] Start: 10-08-2021 COVID-19 VACCINE (5 - Booster for Moderna series) COVID-19 VACCINE (5 - Booster for Moderna series) [facility] Start: 09-11-2021 Mammography MAMMOGRAM [facility] Start: 03-20-2020 Shingrix Vaccine (2 of 2) Shingrix Vaccine (2 of 2) [facility] Start: 03-20-2020 Zoster Vaccines (2 of 2) Zoste r Vaccines (2 of 2) [facility] Start: 2018 RSV High Risk: (Elde rly (60+) or Population) (1 - Risk 60-74 years 1-dose series) RSV High Risk: (Elderly (60+) or Population) (1 - Risk 60-74 years 1-dose series) [facility] Start: 2018 RSV Vaccine (1 - 1-d ose 60+ series) RSV Vaccine (1 - 1-dose 60+ series) [facility] Start: 2008 Pneumococcal Vaccine : 50+ (2 of 2 - PCV) Pneumococcal Vaccine: 50+ (2 of 2 - PCV) [facility] Start: 2008 SHINGRIX VACCINE (1 of 2) SHINGRIX VACCINE (1 of 2) [facility] Start: 02-09-2004 Pneumococcal vaccination Pneum ococcal Vaccine (2 of 2 - PCV) [facility] Start: 07-29-2003 COLOGUARD (FIT-DNA) COLOGUARD (FIT-D NA) [facility] Start: 07-29-2003 Colonoscopy COLONOSCOPY [facility] Start: 07-29-2003 COLORECTAL CANCER SCREENING COLORECTAL CANCER SCREENING [facility] Start: 07-29-[address] COLONOGRAPHY [facility] Start: 07-29-2003 DIABETES SCREEN DIABETES SCREEN [facility] Start: 07-29-2003 Diabetes Screening Diabetes Screenin g [facility] Start: 07-29-2003 FECAL OCCULT BLOOD FECAL OCCULT BLOO D [facility] Start: 07-29-2003 Lipid 1996 panel - S nataly or Plasma Lipid Screening [facility] Start: 07-29-2003 Lipid panel Lipid Screening [facility] Start: 07-29-2003 LIPID SCREEN LIPID SCREEN [facility] Start: 07-29-2003 Screening for malign ant neoplasm of colon [facility] Start: 07-29-2003 SIGMOIDOSCOPY SIGMOIDOSCOPY [facility] Start: 1998 Screening for malign ant neoplasm of breast Mammogram [facility] Start: 1988 HPV TESTING HPV TESTING [facility] Start: 1980 DTaP/Tdap/Td Vaccine s (1 - Tdap) DTaP/Tdap/Td Vaccines (1 - Tdap) [facility] Start: 07-29-1979 PAP TESTING PAP TESTING [facility] Start: 07-29-1979 Screening for malign ant neoplasm of cervix [facility] Start: 1977 Urine microalbumin profile [facility] Start: 1976 Anxiety Screening Anxiety Screening [facility] Start: 1976 Depression Screening Depression Scre ening [facility] Start: 1976 HEPATITIS C SCREENING HEPATITIS C [facility] Start: 1976 Hepatitis C screening Hepatitis C [facility] Start: 1976 HIV SCREENING HIV SCREENING [facility] Start: 1976 HIV screening HIV Screening [facility] Start: 1970 Adult depression screening assessment DEPRESSION SCREENING [facility] Start: 07-29-1959 MMR Vaccines (1 of 1 - Standard series) MMR Vaccines (1 of 1 - Standard series) [facility] Start: 1958 Lipid panel Lipid Panel [facility] Start: 1958 Screening for malign ant neoplasm of colon [facility] Start: 1958 Screening for osteoporosis Bone Density Scan [facility] Start: 1958 Yearly Adult Physical Yearly Adult P hysical [facility] COLOGUARD COLOGUARD Lab Ro utine Encounter for screening for malignant neoplasm of colon Ordered: 08/27/2021 [facility] Work Phone: Comment on above: Ordered: 08/27/2021 End: 04-12-2024 CT for calcium scoring WO contrast and CTA W contrast IV Heart and coronary arteries [facility] Service Area Work Phone: Comment on above: Once for 1 Occurrenc es starting 04/12/2024 until 04/12/2024 End: 09-26-2022 [facility] Radiology Routine Encounter for screening mammogram for malignant neoplasm of breast 1 Occurrences starting 08/27/2021 until 09/26/2022 [facility] Work Phone: Comment on above: 1 Occurrences starti ng 08/27/2021 until 09/26/2022 End: 03-24-2024 [facility] SCREENING [facility] [facility] Radiology Routine Encounter for screening mammogram for breast cancer 1 Occurrences starting 02/23/2023 until 03/24/2024 [facility] Work Phone: Comment on above: 1 Occurrences starti ng 02/23/2023 until 03/24/2024 [facility] c Immunizations Immunization Date Immunization Notes Care Provider [facility] 03-11-2020 Influenza, injectabl e, Madin [place] Canine Kidney, preservative free, quadrivalent Johana Mari MD Work Phone: [facility] 03-11-2020 influenza virus vacc ine, unspecified formulation Johana Mari MD Work Phone: [facility] 01-24-2020 zoster vaccine recombinant Johana Mari MD Work Phone: [facility] 02-08-2003 pneumococcal polysaccharide vaccine, 23 valent Johana Mari MD Work Phone: [facility] 02-08-[address] Bárbara Abrams Work Phone: [facility] Work Phone: 02-08-2003 pneumococcal vaccine , unspecified formulation [facility] Payers Date Payer Category Payer Self-pay [id number] 2024 Managed Care (Private) [employer] [id number] 2024 Private Health Insurance CHELITA SHELDON PPO TPA [id number] 2024-Present [address] [place] [address] PPO [id number] 2023 Self-pay [id number] 2022 Unknown [employer]M BLUE ACCE SS PPO [id number] 2022-Present [phone] [address] [place] [address] PPO [id number] 2020 Unknown [employer] AULTCAR E PPO [id number] 2020-Present [phone] [address] [place] [address] PPO [id number] 2013 Private Health Insurance [id number] 2013 Unknown [id number] 1960 Unknown [id number] Unknown ANTHEM [id number] Unknown [id number] Unknown [id number] Unknown [id number] Unknown [id number] Social History Date Type Detail Facility Start: 06-03-2021 Tobacco smoking status NHIS Unknown if ever smoked [facility] Start: 03-25-2020 None [facility] Start: 03-25-2020 Spouse/ Signif icant Other [facility] Start: 1960 Sex Assigned At Female W [facility] Start: 07-24-2020 End: 02-01-2024 Tobacco smoking status NHIS Never smoked tobacco [facility] Work Phone: Start: 07-24-2020 End: 02-01-2024 Tobacco use and exposure Smokeless tobacco non-user [facility] Work Phone: Start: 08-27-2021 End: 02-27-2024 Alcohol intake Current drinker of alcohol (finding) [facility] Start: 1960 Sex Assigned At Not on file C [facility] Start: 07-24-2021 End: 04-12-2024 Exposure to SARS-CoV-2 (event) Not sure [facility] Start: 03-18-2016 Non-smoker [facility] Start: 02-23-2023 End: 02-27-2024 History of Social function [facility] Start: 02-23-2023 End: 02-27-2024 Tobacco use panel [facility] National Score (1-100), lower number is lower risk 76 [facility] Clinical Notes 08-27-2021 to 04-08-2024 Telephone Encounter - Catherine Conti RN - 04/08/2024 1:19 PM ESTTelephone Encounter - Catherine Conti RN - 04/08/2024 1:19 PM Johana Connelly MD - 02/27/2024 11:13 AM EST Note Date & Type Note Facility 04-08-2024 Telephone encounter Note Patient notified. She plans to contact her PCP. Catherine Conti, RN [facility] 04-08-2024 Miscellaneous Notes Patient notified. She plans to contact her PCP. Catherine Conti RN Please notify patient that her BMD shows osteoporosis - recommend follow up with Endocrinology or PCP for discussion of treatment options. documented in this encounter [facility] 04-08-2024 Telephone encounter Note Please notify patient that her BMD shows osteoporosis - recommend follow up with Endocrinology or PCP for discussion of treatment options. [facility] Work Phone: 04-04-2024 Note HNO ID: [id number] Author: CATHERINE CONTI RN Service: ? Author Type: Registered Nurse Type: Progress Notes Filed: 04/04/2024 13:39 Note Text: Scan on 04/03/2024 6:12 PM by Provider, External, PA-C: Bone Density [facility] 02-27-2024 Note HNO ID: [id number] Author: JOHANA GOLDMAN MD Service: ? Author Type: Physician Type: Progress Notes Filed: 02/27/2024 13:17 Note Text: Duct Installer offered: Patient declinesChata Bruner is a 63 year old who presents for an annual gynecologic exam without complaints. Postmenopausal: Yes HRT use: No. Last Pap: normal HPV: N/A History of abnormal pap: No Last mammogram: 2023 normal History of abnormal mammogram: No Sexually active: No History of STDS: None Patient concerns for STD exposure: No. 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 History Comments: Sexual Activity: Not Currently; Male Contraception: No contraception data on record PAST MEDICAL HISTORY Diagnosis Date Arthritis right shoulder Elevated cholesterol Hypothyroidism Pre-diabetes PAST SURGICAL HISTORY Procedure Laterality Date TONSILLECTOMY AND ADENOIDECTOMY VAGINAL HYSTERECTOMY FAMILY HISTORY Problem Relation Age of Onset Breast Cancer Mother Diabetes Mother Emphysema Father Leukemia Son SOCIAL HISTORY Social History Tobacco Use Smoking status: Never Smokeless tobacco: Never Vaping Use Vaping status: Never Used Substance Use Topics Alcohol use: Yes Drug use: Never REVIEW OF SYSTEMS Abdomen: No abdominal pain, nausea, vomiting, diarrhea, or constipation. No bloating, early satiety, indigestion, or increased flatulence. Bladder: No dysuria, gross hematuria, urinary frequency, urinary urgency, or incontinence Breast: No breast lumps, nipple d/c, overlying skin changes, redness or skin retraction Allergies and current medication updated:Yes SENSITIVE EXAM: The sensitive examination was discussed with the Patient or Patient's Authorized Padder Cushion. As applicable, any other physician, advance practice provider, medical student, or other health professional student that will be observing or involved in the sensitive examination for educational or training purposes was discussed with the Patient or Authorized Padder Cushion. The Patient or Authorized Padder Cushion has agreed to proceed with the sensitive examination. (Sensitive examination includes inspection and/or palpation of the breasts, pelvis, prostate and anorectal regions). EXAM: BP 120/74 Ht 5' 3.386 (1.61m) Wt 160 lb (72.6kg) BMI 28.00 kg/(m2). GENERAL: pleasant, female in no apparent distress HEENT: Normocephalic, atraumatic, mucus membranes moist, and no lesions NECK: Supple, full range of motion, no adenopathy, and thyroid normal DERMATOLOGY: Normal, without lesions, non-icteric, and non-hirsute BREAST: soft, non-tender, symmetric, no dominant mass, normal nipple-areolar complex, no lymphadenopathy, and no nipple discharge CHEST: Normal inspiratory effort ABDOMEN: soft, non-tender, and no masses PELVIC: Pt declined BIMANUAL: pt declined RECTOVAGINAL: deferred NEURO: alert and oriented x3,exam grossly non-focal EXTREMITIES: normal ASSESSMENT/PLAN: 1) Health maintenance: Pap/HPV screening no longer needed Mammogram ordered Mammogram up to date Nutrition, exercise and routine health maintenance exams reviewed. Calcium/Vitamin D supplementation information provided. Colon cancer screening: up to date with screening BMD: ordered 2) Follow up one year or sooner as needed Johana Luna MD [facility] 02-27-2024 History of Presen t illness Narrative Duct Installer offered: Patient declines. Zohreh is a 63 year old who presents for an annual gynecologic exam without complaints. Postmenopausal: Yes HRT use: No. Last Pap: normal HPV: N/A History of abnormal pap: No Last mammogram: 2023 normal History of abnormal mammogram: No Sexually active: No History of STDS: None Patient concerns for STD exposure: No. 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 History Comments: Sexual Activity: Not Currently; Male Contraception: No contraception data on record PAST MEDICAL HISTORY Diagnosis Date Arthritis right shoulder Elevated cholesterol Hypothyroidism Pre-diabetes PAST SURGICAL HISTORY Procedure Laterality Date TONSILLECTOMY & ADENOIDECTOMY <AGE 10 VAGINAL HYSTERECTOMY FAMILY HISTORY Problem Relation Age of Onset Breast Cancer Mother Diabetes Mother Emphysema Father Leukemia Son SOCIAL HISTORY Social History Tobacco Use Smoking status: Never Smokeless tobacco: Never Vaping Use Vaping status: Never Used Substance Use Topics Alcohol use: Yes Drug use: Never REVIEW OF SYSTEMS Abdomen: No abdominal pain, nausea, vomiting, diarrhea, or constipation. No bloating, early satiety, indigestion, or increased flatulence. Bladder: No dysuria, gross hematuria, urinary frequency, urinary urgency, or incontinence Breast: No breast lumps, nipple d/c, overlying skin changes, redness or skin retraction Allergies and current medication updated:Yes SENSITIVE EXAM: The sensitive examination was discussed with the Patient or Patient's Authorized Padder Cushion. As applicable, any other physician, advance practice provider, medical student, or other health professional student that will be observing or involved in the sensitive examination for educational or training purposes was discussed with the Patient or Authorized Padder Cushion. The Patient or Authorized Padder Cushion has agreed to proceed with the sensitive examination. (Sensitive examination includes inspection and/or palpation of the breasts, pelvis, prostate and anorectal regions). EXAM: BP 120/74 Ht 5' 3.386 (1.61m) Wt 160 lb (72.6kg) BMI 28.00 kg/(m^2). GENERAL: pleasant, female in no apparent distress HEENT: Normocephalic, atraumatic, mucus membranes moist, and no lesions NECK: Supple, full range of motion, no adenopathy, and thyroid normal DERMATOLOGY: Normal, without lesions, non-icteric, and non-hirsute BREAST: soft, non-tender, symmetric, no dominant mass, normal nipple-areolar complex, no lymphadenopathy, and no nipple discharge CHEST: Normal inspiratory effort ABDOMEN: soft, non-tender, and no masses PELVIC: Pt declined BIMANUAL: pt declined RECTOVAGINAL: deferred NEURO: alert and oriented x3,exam grossly non-focal EXTREMITIES: normal ASSESSMENT/PLAN: 1) Health maintenance: Pap/HPV screening no longer needed Mammogram ordered Mammogram up to date Nutrition, exercise and routine health maintenance exams reviewed. Calcium/Vitamin D supplementation information provided. Colon cancer screening: up to date with screening BMD: ordered 2) Follow up one year or sooner as needed Johana Luna MD documented in this encounter [facility] 02-01-2024 Note HNO ID: [id number] Author: JOSHUA EASTMAN APRN.RAILROAD TRACK INSPECTOR Service: ? Author Type: Nurse Practitioner Type: Progress Notes Filed: 02/01/2024 13:37 Note Text: This note was created using CarFinriter. Subjective Zohreh Vazquez is a 63 year [...] DOXYCYCLINE MONOHYDRATE 100 MG CAPSULE Joshua Eastman APRN.[facility] 02-01-2024 History of Presen t illness Narrative This note was created using Burst.itter. Subjective Zohreh Vazquez is a 63 year [...] DOXYCYCLINE MONOHYDRATE 100 MG CAPSULE Joshua Eastman APRN.RAILROAD TRACK INSPECTOR documented in this encounter [facility] 02-24-2023 Miscellaneous Notes Called and notified that the order was faxed along with the mammogram to [facility] yesterday. They were on the same order form. Patient will call [facility]. Catherine Conti RN Patient verified by name and . She is requesting to have an Bone Density order faxed to [facility]. Review and advise. documented in this encounter [facility] 02-23-2023 History of Presen t illness Narrative Duct Installer offered: Patient declines. Zohreh is a 62 year old who presents for an annual gynecologic exam with complaints, review bloodwork, concerns re blood glucose and CAD . Also concerned about hair loss. New onset breast cancer in [id number] - concerns re appropriate screening. 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 NEURO: alert and oriented x3,exam grossly non-focal EXTREMITIES: normal ASSESSMENT/PLAN: 1) Health maintenance: Pap/HPV screening no longer needed Mammogram ordered [facility] Mammogram up to date Nutrition, exercise and routine health maintenance exams reviewed. Calcium/Vitamin D supplementation information provided. Colon cancer screening: up to date with screening BMD: ordered [facility] 2) Follow up one year or sooner as needed Johana Luna MD documented in this encounter [facility] 09-12-2022 Miscellaneous Notes Order for screening mammogram signed by DM and faxed to [facility]. Becca Hernandes RN documented in this encounter [facility] 08-27-2021 Instructions Johana Mari MD - 08/27/2021 9:48 AM EDT The Obesity Code by Dr. Juan Goldman Life in the Fasting Jacob by Dr. 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 NEURO: alert and oriented x3,exam grossly non-focal EXTREMITIES: normal ASSESSMENT/PLAN: 1) Health maintenance: Pap/HPV screening no longer needed Mammogram ordered [facility] Nutrition, exercise and routine health maintenance exams reviewed. Colon cancer screening: cologuard ordered 2) Follow up one year or sooner as needed Johana Luna MD Duct Installer offered: Patient declines. documented in this encounter [facility] Chief complaint+Reason for visit Narrative Reason for Visit Encounter for screening for COVID-19 [facility] Work Phone: Chief complaint+Reason for visit Narrative* Chief Complaint COVID FOR TRAVEL SCREENING Reason for Visit Encounter for screen ing for COVID-19 [facility] Work Phone: Evaluation note* Diagnosis Onset Date Resolution Status Encounter for screening for COVID-19 acute [facility] Work Phone: Evaluation note* Diagnosis Encounter for gynecological examination (general) (routine) without abnormal findings- Primary Encounter for screening mammogram for malignant neoplasm of breast Other screening mammogram Encounter for screening for malignant neoplasm of colon Special screening for malignant neoplasms, colon [facility] assessment [facility] Work Phone: Evaluation note* Diagnosis Encounter for gynecological examination (general) (routine) without abnormal findings- Primary Encounter for screening mammogram for breast cancer Establishing care with new doctor, encounter for Other reasons for seeking consultation documented in this encounter [facility]* Diagnosis Tick bite of neck, initial encounter- Primary documented [facility] this encounter [facility]* Diagnosis Encounter for gynecological examination (general) (routine) without abnormal findings- Primary [facility]* Diagnosis Atherosclerotic heart disease of [place] coronary artery without angina pectoris documented in this encounter [facility] Work Phone: Reason for referral (narrative)* Diagnostic Procedure Only (Routine) - Pending Review Specialty Diagnoses / Procedures Referred By Garcia davis Referred To Contact [facility] Diagnoses Encounter for screening mammogram for malignant neoplasm of breast Procedures [place]AS SCREENING W HAWA SCREENING DIGITAL BREAST TOMOSYNTHESIS BI SCREENING MAMMOGRAPHY BI 2-VIEW BREAST INC CAD Johana Goldman MD [address] [place] [address] [facility] [address] [place] [place] [address] Referral ID Status Reason Start Date Expiration Date Visits Requested Visits Authorized [id number] Pending Review Auto-Generat ed Referral 08/27/2021 09/26/2022 1 [facility]No reason for referral information [facility]WMer[facility] Work Phone: Reason for visit Narrative* Imaging (Routine) - Pending Review Specialty Diagnoses / Procedures Referred By Garcia davis Referred To Contact Radiology Diagnoses Atherosclerotic heart disease of [place] coronary artery without angina pectoris Procedures CT cardiac scoring wo IV contrast Chago Abrams MD [address] [place] [address] Phone: tel: fax: Referral ID Status Reason Start Date Expiration Date Visits Requested Visits Authorized [id number] Pending Review Perform Procedure 4 02/26/2025 1 1 [facility] Work Phone: Summary Purpose Family History No Family History Records Found Relationship Condition Age at Onset Recorded Date/T kavita Unknown Family History?- Unknown March 9:05am Family History?Diabe jeanmarie, Heart Disease Unknown February 27, 2016 6:43am Family History?Diabe jeanmarie, Heart Disease Unknown March 18, 2016 9:05am Advance Directives No Advanced Directives Records Found Advance Directive Response Recorded Date/ Time Advance Directives Yes April 25, 2017 10:39am Living Will Yes March 25 10:00am Power of Stogy Maker Yes March 25, 2020 10:00am Chief Complaint and Reason for Visit Chief Complaint SCREENING CHEST PAIN CHEST PAIN Chief Complaint SCREENING Reason for Referral Specialty Diagnoses / Procedures Referred By Contac t Referred To Contact Internal Medicine Diagnoses Establishing care with new doctor, encounter for Procedures CONSULT TO INTERNAL MEDICINE OFFICE/OUTPATIENT NEW HIGH MDM 60-74 MINUTES Johana Goldman MD [address] [place] [address] Referral ID Status Reason Start Date Expiration Date Visits Requested Visits Authorized [id number] Authorized PCP Requested Referral 3 02/23/2024 1 1 Specialty Diagnoses / Procedures Referred By Garcia davis Referred To Contact [facility] Diagnoses Encounter for screening mammogram for breast cancer Procedures [place] SCREENING W HAWA SCREENING DIGITAL BREAST TOMOSYNTHESIS BI SCREENING MAMMOGRAPHY BI 2-VIEW BREAST INC CAD Johana Goldman MD [address] [place] [address] [facility] [address] [place] [address] Referral ID Status Reason Start Date Expiration Date Visits Requested Visits Authorized [id number] Authorized Auto-Generat ed Referral 3 03/24/2024 1 1 Additional Source Comments INFORMATION SOURCE (unrecogn ized section and content) DATE CREATED AUTHOR [facility]/29/2017 [facility] DATE CREATED AUTHOR AUTHOR'S ORGANIZ ATION 04/09/2024 [facility] DATE CREATED AUTHOR AUTHOR'S ORGANIZ ATION 04/19/2024 [facility] DATE CREATED AUTHOR AUTHOR'S ORGANIZ ATION 08/22/2024 [facility] Goals (unrecognized section and content) Goals may be documented in a n alternate sectionGoals may be documented in an alternate sectionGoals may be documented in an alternate sectionGoals may be documented in an alternate sectionGoals may be documented in an alternate section Source Comments (unrecognize d section and content) In the event this informatio n is protected by the Federal Confidentiality of Alcohol and Drug Abuse Patient Records regulations: The Federal rules restrict any use of the information to criminally investigate or prosecute any alcohol or drug abuse patient.[facility] Hospital[facility] the event this information is protected by the Federal Confidentiality of Alcohol and Drug Abuse Patient Records regulations: The Federal rules restrict any use of the information to criminally investigate or prosecute any alcohol or drug abuse patient.[facility] HospitalIn the event this information is protected by the Federal Confidentiality of Alcohol and Drug Abuse Patient Records regulations: The Federal rules restrict any use of the information to criminally investigate or prosecute any alcohol or drug abuse patient.[facility] HospitalIn the event this information is protected by the Federal Confidentiality of Alcohol and Drug Abuse Patient Records regulations: The Federal rules restrict any use of the information to criminally investigate or prosecute any alcohol or drug abuse patient.[facility] HospitalIn the event this information is protected by the Federal Confidentiality of Alcohol and Drug Abuse Patient Records regulations: The Federal rules restrict any use of the information to criminally investigate or prosecute any alcohol or drug abuse patient.[facility] HospitalIn the event this information is protected by the Federal Confidentiality of Alcohol and Drug Abuse Patient Records regulations: The Federal rules restrict any use of the information to criminally investigate or prosecute any alcohol or drug abuse patient.[facility] HospitalIn the event this information is protected by the Federal Confidentiality of Alcohol and Drug Abuse Patient Records regulations: The Federal rules restrict any use of the information to criminally investigate or prosecute any alcohol or drug abuse patient.[facility] Reason for Visit (unrecogniz ed section and content) Reason Comments Yearly Exam Reason Comments Mammogram Order Reason Comments Yearly Exam Reason Comments Orders Reason Comments Tick Tick is imbedded L s mayela of neck x 1 day Reason Comments Yearly Exam Reason Comments Results Care Teams (unrecognized sec tion and content) Payroll Human Resources Assistant Relationship Specialty Start Date End Date Yogesh Nice [address] [place] [address] PCP - General 07/21/00 Payroll Human Resources Assistant Relationship Specialty Start Date End Date Yogesh Nice [address] [place] [address] PCP - General 07/21/00 Team Status: Active Member Role Status Dates Dr. Chago Abrams MD Family Provider Active Dr. Chago Abrams MD Primary Care Provider Active Team Status: Inactive Member Role Status Dates Dr. Chago Abrams MD Primary Care Provider Active Dr. Johana Luna MD Attending Provider, R eferring Provider Active Payroll Human Resources Assistant Relationship Specialty Start Date End Date Chago Abrams MD [address] [place] [address] PCP - General Family Medicine 02/23/23 Payroll Human Resources Assistant Relationship Specialty Start Date End Date Chago Abrams MD [address] [place] [address] PCP - General Family Medicine 02/23/23 Payroll Human Resources Assistant Relationship Specialty Start Date End Date Chago Abrams MD [address] [place] [address] PCP - General Family Medicine 02/23/23 Payroll Human Resources Assistant Relationship Specialty Start Date End Date Chago Abrams MD [address] [place] [address] PCP - General Family Medicine 02/23/23 Payroll Human Resources Assistant Relationship Specialty Start Date End Date Chago Abrams MD [address] [place] [address] PCP - General Family Medicine 04/12/24 FOR RECORDS PERTAINING TO PATIENTS WHO ARE [...] BE BASED ON THE PRIMARY CLINICAL RECORDS. [employer] [facility] provides no warranty or guarantee of the accuracy or completeness of information in this document.
== END | disposition home or self-care (01) ==
LOC: OPBI 09:01
PROVIDERS: PCP Family Medicine; Referring Provider Obstetrics & Gynecology; Visit Provider Obstetrics & Gynecology
DX: Z12.31 Encounter for screening mammogram for malignant neoplasm of breast (principal)
CPT/HCPCS: 77063; 77067

== ENCOUNTER 2025-01-31 21:30 | Emergency (ER) | payer MEDICARE, OTHER, SELFPAY ==
[2025-01-31 21:31] VITALS: BP 131/89; PULSE 84; RESP 16; TEMP 36.9; O2SAT 98; BMI 28.0
--- NOTE | 2025-01-31 21:39 | EX.ED.DYSGE1 ---
HPI History of Present Illness Chief Complaint: Bite Detail of Chief Complaint: Tick bite anterior right leg Informant: patient Onset/Context/Timing Onset: Yesterday Context: Sudden Onset Timing: Continuous Quality: On her leg for some time. She presents because of redness. Location: Anterior mid leg Current Severity: Mild Maximum Severity: Mild Worsened by: Not applicable Relieved by: removed tick Associated Symptoms Associated Symptoms: None Narrative Narrative: Patient is a pleasant 64-year-old woman who presents because of tick bite with redness anterior leg. Tick was removed by her . She is concerned because of the redness. She denies fever, chills night sweats. She denies drainage from the bite site. She states her dog was bit by a tick and tested positive for Lyme's. The tick was removed this morning by her . Prior similar symptoms: No Recent [facility] Medical History Encounter for screening for COVID-19 Home Medications ?Medication ?Instructions ?Recorded ?Last Taken ?Type multivitamin with folic acid 400 1 tab PO DAILY 01/09/14 01/07/14 History mcg tablet (Thera) ascorbic acid (vitamin C) 1,000 mg 1,000 mg PO DAILY 02/26/16 Unknown History tablet (Vitamin C) cholecalciferol (vitamin D3) 25 1,000 unit PO DAILY 02/26/16 Unknown History mcg (1,000 unit) chewable tablet (Vitamin D3) levothyroxine 50 mcg tablet 50 mcg PO DAILY ##1 02/29/16 Unknown Rx aspirin 81 mg chewable tablet 81 mg PO DAILY@0800 03/02/16 Unknown History atorvastatin 20 mg tablet 20 mg PO DAILY 01/31/25 Unknown History bupropion HCl 150 mg tablet,12 hr 150 mg PO DAILY 01/31/25 Unknown History sustained-release cephalexin 500 mg capsule 500 mg PO Q6 #16 CAPSULES 01/31/25 Unknown Rx Allergy/AdvReac Type Severity Reaction Status Date / Time No Known Allergies Allergy Verified 01/31/25 21:31 Social History (Updated 01/31/25 @ 21:[address] Navjot Smallwood MD) household members: spouse Smoking Status: Never smoker ROS ROS ED Constitutional Constitutional ED: Denies chills, fever(s) or subjective Musculoskeletal Musculoskeletal: Denies arthralgias or myalgias Integumentary Reports rash and other Details: Tick bite leg ; Denies abscess or Abrasions Hematologic/Lymphatic Hematologic/Lymphatic: Reports systems reviewed and no addt'l complaints, except as documented EXAM Physical Exam Const Vital Signs: 01/31/25 21:31 Temperature 98.4 F Temperature Source Oral Pulse Rate 84 Respiratory Rate 16 Blood Pressure 131/89 H Blood Pressure Mean 103 Pulse Ox 98 Oxygen Delivery Method Room Air Positive well nourished and well developed General Appearance ED: well developed and NAD HEENT Reports moist mucous membranes Negative for trauma or tenderness Eyes PERRL and EOMs intact bilaterally Resp normal respiratory effort Cardio regular rate and regular rhythm Extremity Negative for normal to inspection Extremity Narrative: Tick bite with erythema centrally size of a chickpea. There is also some fine erythema without induration. Radius from bite is 1 cm. There is no lymphangitis. There is no popliteal lymphadenopathy. There is no fluctuance. Neuro oriented x3 and CN's II-XII intact bilaterally Motor Exam: strength 5/5 throughout Psych mental status grossly normal Skin No no rashes or lesions noted and No no wounds MDM MDM MDM Narrative Medical decision making narrative: Patient presents with tick bite. Because of concern for Lyme disease Lyme test was drawn. Since there is evidence of early infection she was placed on cephalexin. Patient was informed if the Lyme titer is positive she will receive a call from the emergency room and treated with doxycycline. She states that the antibiotic that the bat placed her dog on. Discharge Plan Triage Chief Complaint: Bite ED Provider: Navjot Smallwood Dx/Rx/DC Orders Clinical Impression: Infected tick bite of lower leg, Hypothyroidism, Hyperlipidemia Instructions: ED Tick Bite, No Abx Tx Prescriptions: New cephalexin 500 mg capsule 500 mg PO Q6 Qty: 16 0RF No Action multivitamin with folic acid [Thera] 1 TABLET tablet 1 tab PO DAILY Patient Comments: vitamin ascorbic acid (vitamin C) [Vitamin C] 1,000 MG tablet 1,000 mg PO DAILY Patient Comments: vitamin cholecalciferol (vitamin D3) [Vitamin D3] 1,000 UNIT tablet,chewable 1,000 unit PO DAILY Patient Comments: vitamin levothyroxine 50 MCG tablet 50 mcg PO DAILY Qty: 1 0RF Patient Comments: thyroid aspirin 81 MG tablet,chewable 81 mg PO DAILY@0800 bupropion HCl 150 mg tablet sustained-release 12 hr 150 mg PO DAILY atorvastatin 20 mg tablet 20 mg PO DAILY Primary Care Provider: Chago Valles Referrals: Chago Valles MD [Primary Care Provider, Family Practice] - 3-5 Days if not improving Activity Restrictions/Additional Instructions: Return if there is colored drainage from the wound, temperature greater than 100, shaking chills, red streak up towards your groin. If your Lyme titer is positive you will be contacted and will need treatment with doxycycline. Print Language: Eritrean Disposition Disposition: Home, Self Care
--- OUTSIDE RECORDS SUMMARY | 2025-01-31 21:49 | XMS RPT_ITS | CCD ---
Author Organization [facility] Providers Care Director Insurance Name Role Phone TANISHA Unavailable Unavailable TANISHA Unavailable Unavailable TANISHA Unavailable Unavailable BRIANDA WHITMAN MD Unavailable Unavailable PROVIDER, UNKNOWN Unavailable Unavailable Dr. Chago Abrams Primary Care Provider Dr. Chago Abrams Referring Provider DEIDRA Licea Attending Provider Yogesh Nice Primary Care Provider Dr. Chago Abrams Primary Care Provider Dr. Chago Abrams Referring Provider [phone] Chago Abrams Other Provider Dr. Chago Dixon Attending Provider Yogesh Nice Primary Care Provider Chago Abrams MD Primary Care Provider [phone] Chago Abrams MD Primary Care Provider CHAGO ABRAMS Primary Care Unavailable KRISTAL GOLDMAN Attending Unavail able KRISTAL GOLDMAN Referring Unavail able CHAGO ABRAMS Primary Care Unavailable Chago Abrams MD Primary Care Provider CHAGO ABRAMS Referring Unavailable CHAGO ABRAMS Primary Care Unavailable Dr. Chago Abrams MD Primary Care Provider Dr. Kristal Luna MD Attending Provid er Dr. Kristal Luna MD Referring Provid er Kristal Luna Attending Unavail able Kristal Luna Referring Unavail able Chago Abrams Primary Care Unavailable Chago Abrams Attending Unavailable Chago Abrams Primary Care Unavailable Chago Abrams Attending Unavailable Chago Abrams Primary Care Unavailable Reena, Chago Referring Unavailable Kristal Luna Attending Unavail able Kristal Luna Referring Unavail able Chago Abrams Primary Care Unavailable Allergies Allergy Classification Reported Allergen(s) Allergy Type Date of Onset Reaction(s) Facility (8 sources) Pethidine analog; Translations: [OPIOIDS-MEPERID INE AND RELATED] Drug Intolerance 1 Intolerance [facility] Work Phone: (1 source) ALLERGIES NOT ON FILE; Translations: [ALLERGIES NOT ON FILE] Propensity to adverse reactions (disorder) [facility] 2 Repository Medications Current Medications Medication Drug Class(es) Dates Sig (Normalized) Sig (Original) amoxicillin 875 mg / clavulanate 125 mg oral tablet (6 sources) Penicillin-class Antibacterial Start: 04-25-2017 take 1 tablet by mouth every twelve hours Amoxicillin-Pot Clavulanate 875 MG tablet Active 875 mg PO Q12H 20 0 April 25, 2017 1:00am ascorbic acid 1000 mg oral tablet (13 sources) Vitamin C Start: 02-26-2016 take 1 [...] once daily. aspirin 81 mg chewable tablet (6 sources) Platelet Aggregation Inhibitor, Nonsteroidal Anti-inflammatory Drug Start: 6 take 1 tablet by mouth once daily Aspirin 81 MG tablet,chewable Active 81 mg PO DAILY@0800 March 02, 2016 1:00am atorvastatin 20 mg oral tablet (13 sources) HMG-CoA Reductase Inhibitor Start: 1 take [...] once daily. cholecalciferol 0.025 mg chewable tablet (6 sources) Vitamin D Start: 2015 take 1 tablet by mouth once daily Cholecalciferol (Vitamin D3) (Vitamin D3) 1,000 UNIT tablet,chewable Active 1000 U PO DAILY February 26, 2016 1:00am docusate sodium 100 mg oral capsule (6 sources) Start: 2015 take 2 capsules by mouth twice daily as needed for constipation Docusate Sodium (Dok) 100 MG capsule Active 200 mg PO TWICE DAILY NEEDED as needed for Constipation 60 0 February 28, 2016 1:00am doxycycline monohydrate 100 [...] tablet Discontinued 75 ug PO DAILY@0600 60 0 February 28, 2016 1:00am February 29, 2016 10:55am Start: 07-19-2013 End: 02-28-2016 take 1 tablet by mouth once daily Levothyroxine 50 MCG tablet Active 50 ug PO DAILY 1 0 February 29, 2016 1:00am Comment on above: Take 50 mcg by mouth once daily. Take 25 mcg by mouth once daily. meloxicam 15 mg oral tablet (3 sources) Nonsteroidal Anti-inflammatory Drug Start: 4 take 7.5 mg by mouth once daily meloxicam (MOBIC) 15 mg tablet Take 7.5 mg by mouth once daily. 01/30/2024 Active Multivitamin With Folic Acid (Thera) 1 TABLET tablet (6 sources) Start: 4 take 1 tablet by [...] TABLET PO DAILY January 09, 2014 12:00am [place]-3 Fatty Acids (Fish Oil) 500 MG capsule (6 sources) Start: 02-26-2016 take 1 capsule by mouth once daily [place]-3 Fatty Acids (Fish Oil) 500 MG capsule Active 500 MG PO DAILY February 26, 2016 9:17pm Start: 02-26-2016 take 1 capsule by [facility] once daily [place]-3 Fatty Acids (Fish Oil) 500 MG capsule Active 500 mg PO DAILY February 26, 2016 1:00am Start: 02-26-2016 take 1 capsule by [facility] once daily [place]-3 Fatty Acids (Fish Oil) 500 MG capsule Active 500 MG PO DAILY February 26, 2016 1:00am predniSONE 10 mg oral tablet (6 sources) Start: 04-25-2017 take 4 tablets by mouth once daily, then take 3 tablets by mouth once daily, then take 2 tablets by mouth once daily, then take 1 tablet by mouth once daily, then take 1 tablet by mouth every other day Prednisone 10 MG tablet Active 10 mg PO DIRECTED 33 0 April 25, 2017 1:00am Take 4 tablets daily for 3 days, then 3 daily for 3 days, then 2 daily for 3 days, then 1 a day for 3 days then 1 QOD for 3 doses. tapentadol 50 mg oral tablet (6 sources) Opioid Agonist Start: 04-25-2017 take 1 tablet by mouth four times daily as needed for pain Tapentadol (Nucynta) 50 MG tablet Active 50 mg PO 4 TIMES DAILY NEEDED as needed for Pain April 25, 2017 1:00am valACYclovir 500 mg oral tablet (6 sources) Herpesvirus Nucleoside Analog DNA Polymerase Inhibitor, Herpes Simplex Virus Nucleoside Analog DNA Polymerase Inhibitor, Herpes Zoster Virus Nucleoside Analog DNA Polymerase Inhibitor Start: 04-25-2017 take 1 tablet by mouth twice daily Valacyclovir 500 MG tablet Active 500 mg PO TWICE A DAY 10 April 25, 2017 1:00am Completed/Discontinued Medications Medication Drug Class(es) Dates Sig (Normalized) Sig (Original) metroNIDAZOLE 500 mg oral tablet (6 sources) Nitroimidazole Antimicrobial Start: 02-28-2016 End: 02-29-2016 take 1 tablet by mouth once daily Metronidazole (Flagyl) 500 MG tablet Discontinued 500 mg PO DAILY 10 February 28, 2016 1:00am February 29, 2016 10:56am Problems Active Problems Problem Classification Problem Date Documented Da te Episodic/Chronic Conditions associated with dizziness or vertigo (6 sources) Vertigo; Translations: [Dizziness and giddiness] 03-26-2020 Episodic Coronary atherosclerosis and other heart disease (4 sources) Coronary atherosclerosis; Translations: [Atherosclerotic heart disease of viejas coronary artery without angina pectoris] Onset: 04-12-2024 04-12-2024 Chronic Disorders of lipid metabolism (6 sources) Hyperlipidemia; Translations: [Hyperlipidemia, unspecified] 03-25-2020 Chronic Immunizations and screening for infectious disease (12 sources) Patient encounter status; Translations: [Encounter for screening for COVID-19] Episodic Noninfectious gastroenteritis (6 sources) Non-specific colitis; Translations: [Noninfective gastroenteritis and colitis, unspecified] 03-25-2020 Episodic Nonspecific chest pain (6 sources) Atypical chest pain; Translations: [Other chest pain] 03-26-2020 Episodic Other gastrointestinal disorders (6 sources) Constipation; Translations: [Constipation, unspecified] 03-25-2020 Episodic Other nervous system disorders (6 sources) Paresthesia of hand ; Translations: [Paresthesia of skin] 03-26-2020 Episodic Other screening for suspected conditions (not mental disorders or infectious disease) (2 sources) Encounter for screening mammogram for malignant neoplasm of breast; Translations: [Encounter for screening for osteoporosis] Onset: 05-02-2024 Episodic Superficial injury; contusion (1 source) Tick bite; Translations: [Insect bite of unspecified part of neck, initial encounter] 02-01-2024 Episodic Thyroid disorders (6 sources) Hypothyroidism; Translations: [Hypothyroidism, unspecified] 02-29-2016 Chronic Past or Other Problems Problem Classification Problem Date Documented Da te Episodic/Chronic Other non-traumatic joint disorders (1 source) Pain in right shoulder; Translations: [Pain in right shoulder] Onset: 03-20-2024 Episodic Results Test Name Value Interpretation Reference Range Facility Breast imaging reportOrdered By: Kimberley Mosquera on 11-08-2024 Study report [facility] Imaging Services [address] [place] [address] [id number] SCRN MAMM (CAD)W/HAWA BILAT MR#: [id number] Acct: [id number] Name: ZOHREH VAZQUEZ Rep #: [id number] : 1960 F 64 From: Stephanie Mosquera MD PCP: Dr. Chago Abrams MD Status: VIV PHILIPPE Study:SCRN MAMM (CAD)W/HAWA BILAT Date of Exa m: 11/08/24 Exam# [id number] Ordering Dr: Kristal Cid MD EXAM: SCRN MAMM (CAD)W/HAWA BILAT DATE: 11/08/2024 CLINICAL HISTORY: F, Age 64 y/o , SCREENING TECHNIQUE: SCRN MAMM (CAD)W/HAWA BILAT COMPARISON: Prior exam(s) dated 11/03/2023, 10/21/2022, 09/17/2021. FINDINGS: TISSUE DENSITY: There are scattered areas of fibroglandular density. Bilateral Breast Mammographic Findings: No significant masses, calcifications or other abnormalities are identified. BI/SCRN MAMM (CAD)W/HAWA BILAT IMPRESSION: There is no mammographic evidence of malignancy. OVERALL FINAL ASSESSMENT BI-RADS 1: NEGATIVE. RECOMMENDATION: Routine annual follow-up in 1 Year A letter with findings and recommendations will be mailed to the patient. Reading Location: [facility] CC: Dr Kristal Luna MD; Dr. 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 Chago Abrams MD Status: [facility] CLI Study: SCRN MAMM (CAD)W/HAWA BILAT Date of Exam: 05/04 Exam# [id number] Ordering Dr: Yuan MD EXAM: SCRN MAMM (CAD)W/HAWA BILAT DATE: 11/08/2024 CLINICAL HISTORY: F, Age 64 y/o , SCREENING TECHNIQUE: SCRN MAMM (CAD)W/HAWA BILAT COMPARISON: Prior exam(s) dated 11/03/2023, 10/21/2022, 09/17/2021. FINDINGS: TISSUE DENSITY: There are scattered areas of fibroglandular density. Bilateral Breast Mammographic Findings: No significant masses, calcifications or other abnormalities are identified. BI/SCRN MAMM (CAD)W/HAWA BILAT IMPRESSION: There is no mammographic evidence of malignancy. OVERALL FINAL ASSESSMENT BI-RADS 1: NEGATIVE. RECOMMENDATION: Routine annual follow-up in 1 Year A letter with findings and recommendations will be mailed to the patient. Reading Location: [facility] CC: Dr Kristal Luna MD; Dr. 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 ,I25.10 Atherosclerotic heart disease of viejas coronary artery without angina pectoris COMPARISON: None. ACCESSION NUMBER(S): [id number] ORDERING CLINICIAN: CHAGO ABRAMS TECHNIQUE: Using prospective [...] coronary heart disease events. According to the [employer] Clinical Expert Consensus [...] modify other non-lipid coronary risk factors. Reference: Ermias P et al. Circulation. 2007; 115:402-426 MACRO: None Signed by: Jose Manuel Howard 04/17/2024 10:46 AM Dictation workstation: [id number] [facility] 04-08-2024 [facility] Telephone (OBGYWM) ----- ZOHREH VAZQUEZ ([id number]) 1960 F Date Time Provider Department 04/08/24 KRISTAL GOLDMAN During your visit today, we recorded the following information about you: Kristal Goldman MD 04/08/2024 12:48 PM Signed Please [...] Encounter Status:Closed by CATHERINE CONTI on 04/08/24 [facility] Dexa Bone Density Studyon Dexa Bone Density Study [facility] Services [address], [place] [address] Dexa Bone Density Study MR#: [id number] Acct: [id number] Name: ZOHREH VAZQUEZ Rep #: [id number] : 1960 F 63 From: Pankaj Woo MD PCP: Dr. Chago Abrams MD Status: [facility] Study: Dexa Bone Density Study Date of Exam: 04/02/24 Exam# [id number] Ordering Dr: Yuan MD [id number] STUDY: DUAL ENERGY X-RAY ABSORPTIOMETRY / DXA [...] MD at 18:07 EST , CC: Dr Kristal Luna MD; Dr. 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 T, [facility] Referring Dr.: Dr. Chago Abrams MD Status: REG RCR Insurance: [facility] PACKAGE PLAN Discharge Summary D/C summary: It [...] to demonstrate 50% improvement with ADL's and [employer] [place] activities Goal Progress: Goal Met Goal [...] please feel free to call me at [phone]. Thank you for the referral of this patient. Sincerely, Reji Siddiqui, PT, Cert MDT, OCS Balance/Gait/Functional tests Balance/Special Test Scores Quick DASH Score: 43.1800 Improvement % Improvement: 90 03/21/24 1755 CC: Dr. Chago Abrams MD JOHNSON Signed Normal [facility] CNOVon 02-27-2024 [facility] Office Visit (OBGYWM ) ----- ZOHREH VAZQUEZ ([id number]) 1960 F Date Time Provider Department 02/27/24 11:20 AM KRISTAL GOLDMAN OBGYWM During your visit today, we recorded the following information about you: Blood pressure Weight Height 120/74 72.6 kg 1.61 m Kristal Goldman MD 02/27/2024 1:17 PM Signed Economic Specialist offered: Patient declines. 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 As applicable, any other physician, advance practice provider, medical student, or other health professional student that will be observing or involved in the sensitive examination for educational or training purposes was discussed with the Patient or Authorized Customer Service Officer. The Patient or Authorized Customer Service Officer has agreed to proceed with the sensitive [...] up one year or sooner as needed Kristal Luna MD Referring Provider: KRISTAL GOLDMAN [[id number]] Allergies As of Date: 02/27/2024 Noted Allergy [...] Date: 02/27/2024 (more content not included)... Normal [facility] Inital Evaluation (1) - PTon 02-14-2024 Inital Evaluation (1) - PT [facility] [address] [place] [address] / REHABILITATION SERVICES INITIAL EVALUATION MR#: [id number] Acct: [id number] Name: ZOHREH VAZQUEZ Rep #: [id number] : 1960 63 From: Reji Siddiqui PT, Khadra. T, OCS Referring Dr.: Dr. Chago Abrams MD Status: REG R Insurance: [employer] SELF PAY INSURANCE Patient's Visit Information Visit [...] improve he (more content not included)... Normal [facility] Upper Ext Joint Only(Routine )on 02-08-2024 Upper Ext Joint Only(Routine) [facility] [address] [place] [address] Upper Ext Joint Only(Routine) MR#: [id number] Acct: [id number] Name: ZOHREH VAZQUEZ Rep #: [id number] : 1960 F 63 From: Eric Daugherty MD PCP: Dr. Chago Abrams MD Status: REG CLI Study: Upper Ext Joint Only(Routine) Date of Exam: Exam# [id number] Ordering Dr: Chago Abrams MD [id number] STUDY: MRI RIGHT SHOULDER REASON FOR EXAM: [...] at 11:43 EDT , CC: Dr. 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 Subjective Zohreh Vazquez is a 63 year [...] Date Reviewed: 02/01/2024 Reviewed by: Joshua Eastman APRN.CNP - Fully Assessed Reason for Visit: Tick [...] Status:Closed by JOSHUA EASTMAN on 02/01/24 [facility] 2021 Bilirubin [Mass/Vol] 0.40 mg/dL 0.20-1.00 [facility] Work Phone: Comment on above: For patients on eltr ombopag therapy, use of Dimension [place] TBIL is not recommended. Chloride [Moles/Vol] 110 mmol/L 98-107 [facility] Work Phone: [phone] Cholesterol [Mass/Vol] 174 mg/dL <200 [facility] Work Phone: [phone] Comment on above: <200 mg/dL Desirable 200-240 mg/dL Borderline >240 mg/dL High Risk Glucose [Mass/Vol] 95 mg/dL 74-106 [facility] Work Phone: [phone] Potassium [Moles/Vol] 3.9 mmol/L 3.5-5.1 [facility] Work Phone: [phone] Protein [Mass/Vol] 6.8 g/dL 6.4-8.2 [facility] Work Phone: [phone] Sodium [Moles/Vol] 141 mmol/L 136-145 [facility] Work Phone: [phone] Triglyceride [Mass/Vol] 116 mg/dL [facility] Work Phone: [phone] Comment on above: The drugs N-Acetylcy steine and Metamizole may falsely depress this assay.Serum Triglycerides Reference Interval Normal <150 mg/dL Borderline high 150 - 199 mg/dL High 200 - 499 mg/dL Very High > or = 500 mg/dL Laboratory - Chemistry and C hemistry - challengeon 07-12-2021 ALP [Catalytic activity/Vol] 51 U/L 45-117 [facility] Work Phone: [phone] ALT [Catalytic activity/Vol] 61 U/L 13-56 [facility] Work Phone: [phone] CO2 [Moles/Vol] 28.0 mmol/L 21.0-32.0 [facility] Work Phone: [phone] Free T4 [Mass/Vol] 0.81 ng/dL 0.76-1.46 [facility] Work Phone: [phone] Globulin (S) [Mass/Vol] 3.0 g/dL 2.2-4.2 [facility] Work Phone: Urea nitrogen/Creatinine [Mass ratio] 23.8 mg/mg 10-20 [facility] Work Phone: No Panel Informationon 07-12 Estimated GFR (MDRD) Amer 83 mL/min >60 [facility] Work Phone: Comment on above: GFR Calc Estimated GFR (MDRD) Non-Af Amer 69 mL/min >60 [facility] Work Phone: Comment on above: Non- GFR Calc Free Triiodothyronine (T3) pg/dL 2.8 pg/mL 2.18-3.98 [facility] Work Phone: Thyroid Stimulating Hormone (TSH) 2.18 uIU/mL 0.358-3.74 [facility] Work Phone: Serum or plasma albumin roland urement (mass/volume)on 07-12-2021 Albumin [Mass/Vol] 3.8 g/dL 3.2-5.0 [facility] Work Phone: Serum or plasma albumin/glob ulin mass ratioon 07-12-2021 Albumin/Globulin [Mass ratio] 1.3 {ratio} 0.9-2.4 [facility] Work Phone: Serum or plasma calcium roland urement (mass/volume)on 07-12-2021 Calcium [Mass/Vol] 9.1 mg/dL 8.5-10.1 [facility] Work Phone: Serum or plasma cholesterol in HDL measurement (mass/volume)on 07-12-2021 Cholesterol in HDL [Mass/Vol] 54 mg/dL [facility] Work Phone: Comment on above: The drugs N-Acetylcy steine and Metamizole may falsely depress this assay. Reference Range HDL <40 mg/dL Low HDL Cholesterol HDL >or= 60 mg/dL High HDL Cholesterol Serum or plasma cholesterol in VLDL measurement (mass/volume)on 07-12-2021 Cholesterol in VLDL [Mass/Vol] 23 mg/dL 5-40 [facility] Work Phone: Serum or plasma creatinine m easurement (mass/volume)on 07-12-2021 Creatinine [Mass/Vol] 0.88 mg/dL 0.55-1.02 [facility] Work Phone: Comment on above: The validity of the calculated GFR & GFRAA in patients over 70 years has not been determined. Clinical correlation is essential. Serum or plasma low density lipoprotein (LDL) cholesterol measurement (mass/volume)on 07-12-2021 Cholesterol in LDL [Mass/Vol] 97 mg/dL 0-130 [facility] Work Phone: Serum or plasma urea nitroge n measurement (mass/volume)on 07-12-2021 Urea nitrogen [Mass/Vol] 21 mg/dL 7-18 [facility] Work Phone: Thin prep Papanicolaou smear with manual screeningon 07-12-2021 Thin prep Papanicolaou smear with manual screening 25 U/L 15-37 [facility] Work Phone: Thin prep Papanicolaou smear with manual screening 3 5-15 [facility] Work Phone: No Panel Informationon 06-03 POC SARS CoV-2 Antigen Negative [facility] Work Phone: MuSK ANITBODY TEST [QUEST]on 06-23-2017 MuSK ANITBODY TEST [QUEST] Normal [facility] Comment on above: Result Comment: _MuS K ANTIBODY TEST_MUSK ANTIBODY TESTReported: 06/23/2017 17:40 Status=F TEST RESULT FLAG RANGE UNITS MUSK ANTIBODY TEST see below 06/23/17.1751Ronan.JORGE .[id number] UAQGQ SDWDVYG--------JEEGG--DLD . RANGE---INTERPRETATIONNEGATIVEThis test did not detect abnormal levels of anti-MuSKantibodies.TECHNICAL RESULTS --Interpretive Result Table INTERPRETIVE RESULT: NegativeTEST: anti-MuSKTECHNICAL RESULT: <1:10REFERENCE RANGE: Negative <1:10, Borderline 1:10, Positive>=1:20 ----COMMENTSComments: This result does not exclude a diagnosis ofMyasthenia Gravis.Recommendations: Health care providers, please contact the[employer] Client Services Department [phone] if you wish to speak with a [...] Luna, et al. (2005) COLEEN 293: 1906-14. (PMID:[id number])2. KINJAL Renee, et al. (2000) Postgrad Med 107: 211-4,220-2. (PMID: 67096497)3. Mei-Sameer S et al. (2014) J Autoimmun 52: 90-100.(PMID: 94134244)4. Evelio Vieyra, et al. (2013) Autoimmun Rev 12: 931-5. (PMID:71065836)This test was developed and its analytical performancecharacteristics have been determined by [employer].It has not been cleared or approved by the U.S. Food andDrug Administration. This assay has been validated pursuantto the CLIA regulations and is used for clinical purposes.Laboratory oversight provided by Henrique Ching M.D.,F.A.A.N., CLIA license addison, [employer] (CLIA #[id number])Testing performed at:[employer] [address] [place] [id number] performed by [employer], Elysia. [address] [place] [address] Wblrvfcejr oversight provided by Henrique Ching M.D., Nina, CLIA license addison, [employer](CLIA #[id number])Test Reported by [facility],[employer] [facility],[address] [place] [address] [id number] Abdi M.D., Ph.D., Director of [phone], CLIA [id number] Performed By: #### [id number] ####[facility],[address] [place] [address] ACETYLCHOLINE MODULATING REC EPTOR AB[QU]on 06-22-2017 Acetaminophen mass conc Normal [facility] Comment on above: Result Comment: _ACE TYLCHOLINE MODULATING RECEPTOR AB_ACETYLCHOLINE RECEPTOR MODULATING ANTIBODYReported: 06/22/2017 15:54 Status=F TEST RESULT FLAG RANGE UNITS Acetylcholine Rec Mod Ab 10 % 06/22/17.1606.rfl.COMPLETE.AMRR .87913-0Uitxb: % binding inhibition Reference Range: < 32% BINDING INHIBITIONThis test was developed and its analyticalperformance characteristics have been determinedby [employer] [facility]. It has not been cleared or approved [facility]. This assay has been validated pursuant to theIA regulations and is used for clinicalpurposes.Test performed by [employer] [facility] [place] [address] [place] [address] Adljjty Director: Ashtyn Sadler MD,PHD,MBATest Reported by [facility],[employer] [facility],[address] [place] [address] [id number] Abdi M.D., Ph.D., Director of [phone], CLIA [id number] Performed By: #### [id number] ####[facility],[address] [place] [address] ACETYLCHOLINE REC BIND AB [Q UEST]on 06-21-2017 Acetaminophen mass conc Normal [facility] Comment on above: Result Comment: _ACE TYLCHOLINE REC BIND AB_ACETYLCHOLINE RECEPTOR BINDING ANTIBODYReported: 06/20/2017 09:45 Status=F TEST RESULT FLAG RANGE UNITS ACETYLCHOLINE REC BINDING <0.30 <=0.30 nmol/L 06/20/17.0957.Hernandez.AMRR .08641-5 Reference Range: Negative: <=0.30 nmol/L Equivocal: 0.31-0.49 nmol/L Positive: >=0.50 nmol/LTest Performed by [facility],[address] [place], [place] [address]PciinkmMarsha Abdi M.D., Ph.D., Director of [phone], CLIA [id number] Performed By: #### 2 [id number] ####[facility],[address] [place], [place] [id number] ACETYLCHOLINE RECEPTOR BLOCK ING AB [QU]on 06-21-2017 Acetaminophen mass conc Normal [facility] Comment on above: Result Comment: _ACE TYLCHOLINE REC BLOC AB_ACETYLCHOLINE RECEPTOR BLOCKING ANTIBODYReported: 06/19/2017 19:48 Status=F TEST RESULT FLAG RANGE UNITS ACETYLCHOLINE REC BLOC AB <15 <15 % inhibit 06/19/17.2000.rfl.COMPLETE.AMRR .96325-8Uwzib are % of inhibition.Test Performed by [facility],[address] [place], [place] [address]Wbtspmqbess Abdi M.D., Ph.D., Director of [phone], CLIA [id number] Performed By: #### 2 [id number] ####[facility],[address] [place] [address] Vital Signs Date Time Vital Sign Value Performing Clinician Faci lity 02-27-2024 11:20-0500 Body height 161 cm Kristal Mari MD Work Phone: [facility] 02-27-2024 11:20-0500 Body mass index (BMI) [Ratio] 28 kg/m2 Kristal Mari MD Work Phone: [facility] 02-27-2024 11:20-0500 Body weight 72.58 kg Kristal Mari MD Work Phone: [facility] 02-27-2024 11:20-0500 Diastolic blood pressure 74 mm[Hg] Kristal Mari MD Work Phone: [facility] 02-27-2024 11:20-0500 Systolic blood pressure 120 mm[Hg] Kristal Mari MD Work Phone: [facility] 02-01-2024 12:55-0400 Body mass index (BMI) [Ratio] 28.38 kg/m2 Joshua Moomaw AIRPLANE DESIGNER.PIT SUPERVISOR Work Phone: [facility] 02-01-2024 12:55-0400 Body temperature 97 [degF] Joshua Moomaw AIRPLANE DESIGNER.PIT SUPERVISOR Work Phone: [facility] 02-01-2024 12:55-0400 Body weight 75 kg Joshua Moomaw AIRPLANE DESIGNER.PIT SUPERVISOR Work Phone: [facility] 02-01-2024 12:55-0400 Diastolic blood pressure 92 mm[Hg] Joshua Moomaw AIRPLANE DESIGNER.PIT SUPERVISOR Work Phone: [facility] 02-01-2024 12:55-0400 Heart rate 83 /min Joshua Moomaw AIRPLANE DESIGNER.PIT SUPERVISOR Work Phone: [facility] 02-01-2024 12:55-0400 Respiratory rate 20 /min Joshua Moomaw AIRPLANE DESIGNER.PIT SUPERVISOR Work Phone: [facility] 02-01-2024 12:55-0400 SaO2% (BldA) [Mass fraction] 97 % Joshua Moomaw AIRPLANE DESIGNER.PIT SUPERVISOR Work Phone: [facility] 02-01-2024 12:55-0400 Systolic blood pressure 164 mm[Hg] Joshua [place] APRN.PIT SUPERVISOR Work Phone: [facility] 02-23-2023 11:19-0500 Body height 162.6 cm Kristal Mari MD Work Phone: [facility] 02-23-2023 11:19-0500 Body weight 69.85 kg Kristal Mari MD Work Phone: [facility] 02-23-2023 11:19-0500 Diastolic blood pressure 82 mm[Hg] Kristal Mari MD Work Phone: [facility] 02-23-2023 11:19-0500 Systolic blood pressure 132 mm[Hg] Kristal Mari MD Work Phone: [facility] 08-27-2021 09:36-0400 Body height 162.6 cm Kristal Mari MD Work Phone: [facility] 08-27-2021 09:36-0400 Body weight 74.84 kg Kristal Mari MD Work Phone: [facility] 08-27-2021 09:36-0400 Diastolic blood pressure 84 mm[Hg] Kristal Mari MD Work Phone: [facility] 08-27-2021 09:36-0400 Systolic blood pressure 126 mm[Hg] Kristal Mari MD Work Phone: [facility] 06-03-2021 07:24-0500 Body height 162.[address] Chago Abrams Work Phone: [facility] Work Phone: 06-03-2021 07:24-0500 Body mass index (BMI) [Ratio] 27.4 kg/m2 Dr. Chago Abrams Work Phone: [facility] Work Phone: 06-03-2021 07:24-0500 Body temperature 97.4 [degF] Dr. Chago Abrams Work Phone: [facility] Work Phone: 06-03-2021 07:24-0500 Body weight 72.[address] Chago Abrams Work Phone: [facility] Work Phone: 06-03-2021 07:24-0500 Diastolic blood pressure 76 mm[Hg] Dr. Chago Abrams Work Phone: [facility] Work Phone: 06-03-2021 07:24-0500 Heart rate 76 /min Dr. Chago Abrams Work Phone: [facility] Work Phone: 06-03-2021 07:24-0500 Respiratory rate 16 /min Dr. Chago Abrams Work Phone: [facility] Work Phone: 06-03-2021 07:24-0500 SaO2% (BldA) [Mass fraction] 98 % Dr. Chago Abrams Work Phone: [facility] Work Phone: 06-03-2021 07:24-0500 Systolic blood pressure 116 mm[Hg] Dr. Chago Abrams Work Phone: [facility] Work Phone: Encounters Encounter Date Encounter Type Care Provider Facility Start: 11-08-2024 End: 11-08-[address] Chago Abrams MD Work Phone: -Outpatient Breast Imaging Start: 11-08-2024 End: 11-08-[address] Kristal Luna MD -Outpatient Breast Imaging Work Phone: Start: 11-08-2024 End: 11-08-2024 ambulatory Kristal Luna Facility:[facility] Start: 04-12-2024 End: 04-12-2024 Subsequent hospital visit by physician [address] Comment on above: Atherosclerotic hear t disease of viejas coronary artery without angina pectoris Start: 04-12-2024 End: 04-12-2024 ambulatory CHAGO SHERIFF [facility] Start: 04-08-2024 End: 04-08-2024 Telephone encounter Kristal Mari MD Work Phone: OB/Gynecology Comment on above: Results Start: 04-02-2024 End: 04-02-2024 ambulatory Kristal Luna Facility:[facility] Start: 03-21-2024 End: 03-21-2024 ambulatory Chago [facility] Facility:[facility] Start: 02-27-2024 End: 02-27-2024 ambulatory KRISTAL MARI Facility:[facility] Start: 02-27-2024 End: 02-27-2024 Patient encounter procedure Kristal Mari MD Work Phone: OB/Gynecology Comment on above: Encounter for gyneco logical examination (general) (routine) without abnormal findings (Primary Dx) Start: 02-27-2024 End: 02-27-2024 Patient encounter status Kristal Mari MD Work Phone: [facility] Start: 02-08-2024 End: 02-08-2024 ambulatory Chago [facility] Facility:[facility] Start: 02-01-2024 End: 02-01-2024 ambulatory CHAGO Guille [facility] Facility:[facility] Start: 02-01-2024 End: 02-01-2024 Patient encounter procedure Joshua [place] AIRPLANE DESIGNER.PIT SUPERVISOR Work Phone: [facility] Comment on above: Tick bite of neck, i nitial encounter (Primary Dx) Start: 02-24-2023 Telephone encounter Kristal Mari MD Work Phone: [facility] Comment on above: Orders Start: 02-23-2023 End: 02-23-2023 Patient encounter procedure Kristal Mari MD Work Phone: OB/Gynecology Comment on above: Encounter for gyneco logical examination (general) (routine) without abnormal findings (Primary Dx); Encounter for screening mammogram for breast cancer; Establishing care with new doctor, encounter for Start: 02-23-2023 End: 02-23-2023 Patient encounter status Kristal Mari MD Work Phone: [facility] Start: 10-21-2022 End: 10-21-2022 ambulatory [facility] Work Phone: Start: 10-21-2022 End: 10-21-2022 Patient encounter procedure [facility] Work Phone: Start: 09-12-2022 Telephone encounter Kristal Mari MD Work Phone: OB/Gynecology Comment on above: Mammogram Order Start: 01-04-2022 Non-patient / Non-visit Dr. Deidra Abrams Work Phone: [facility] Start: 01-04-2022 End: 01-04-[address] Chago Abrams Work Phone: [facility] Work Phone: Start: 01-04-2022 End: 01-04-[address] Chago Abrams Work Phone: [facility] Start: 09-17-2021 End: 09-17-[address] Chago Abrams Work Phone: [facility]-Outpatient Breast Imaging Start: 08-27-2021 End: 08-27-2021 Patient encounter procedure Kristal Mari MD Work Phone: OB/Gynecology Comment on above: Encounter for gyneco logical examination (general) (routine) without abnormal findings (Primary Dx); Encounter for screening mammogram for malignant neoplasm of breast; Encounter for screening for malignant neoplasm of colon Start: 08-27-2021 End: 08-27-2021 Patient encounter status Kristal Mari MD Work Phone: OB/Gynecology Start: 07-12-2021 End: 07-12-[address] Chago Abrams Work Phone: [facility] Start: 06-03-2021 End: 06-03-[address] Chago Abrams Work Phone: [facility] Start: 06-16-2017 End: 06-16-2017 Ambulatory [facility] Procedures Date Procedure Procedure Detail Performing Clinician Start: 11-08-2024 Screening mammography Gretta Abrams MD Work Phone: Start: 10-21-2022 Screening mammography Start: 01-04-2022 Radionuclide imaging of perfusion of myocardium under exercise stress Dr. Chago Abrams Work Phone: Start: 09-17-2021 End: 09-17-[address] Chago Abrams Work Phone: Start: 09-11-2020 Mammography Kristal Mari MD Work Phone: Plan of Treatment Date Care Activity Detail Author Start: 2033 RSV Vaccine (1 - 1-d ose 75+ series) RSV Vaccine (1 - 1-dose 75+ series) [facility] Start: 02-28-2025 End: 02-28-2025 Patient encounter procedure 02/28/2025 11:20 AM EST Office Visit OB/Gynecology [address] [place], [place] [id number] Kristal Goldman MD [address] [place] [address] Annual OB/Gynecology Comment on above: Annual Start: 11-02-2024 Screening for malign ant neoplasm of breast Mammogram Screening [facility] Start: 10-03-2024 COLOGUARD (FIT-DNA) COLOGUARD (FIT-D NA) [facility] Start: 10-03-2024 COLORECTAL CANCER SCREENING COLORECTAL CANCER SCREENING [facility] Start: 10-03-2024 Screening for malign ant neoplasm of colon [facility] Start: 02-27-2024 End: 02-27-2024 Patient encounter procedure 02/27/2024 11:20 AM EST Office Visit OB/Gynecology [address] [place], [place] [id number] Kristal Goldman MD [address] [place] [place] [address] Annual OB/Gynecology Comment on above: Annual Start: 12-10-2023 Covid-19 Vaccine ( season) Covid-19 Vaccine ( season) [facility] Start: 12-10-2023 Influenza vaccination Influenza Vacc ine (#1) [facility] Start: 10-22-2023 Mammography Mammogram Screening [facility] Start: 07-29-2023 Advance Directive Discussion Advance Directive Discussion [facility] Start: 07-29-2023 Pneumococcal Vaccine : 65+ (2 of 2 - PCV) Pneumococcal Vaccine: 65+ (2 of 2 - PCV) [facility] Start: 07-29-2023 Screening for osteoporosis Bone Density Screening [facility] Start: 12-09-2022 Covid-19 Vaccine ( season) Covid-19 Vaccine ( season) [facility] Start: 12-09-2022 Influenza vaccination C [facility] Start: 09-17-2022 Mammography MAMMOGRAM [facility] Start: 04-10-2022 DEPRESSION ASSESSMENT DEPRESSION ASS ESSMENT [facility] Start: 12-09-2021 Influenza vaccination INFLUENZ A (Season Ended) [facility] Start: 10-08-2021 COVID-19 VACCINE (5 - Booster for Moderna series) COVID-19 VACCINE (5 - Booster for Moderna series) [facility] Start: 09-11-2021 Mammography MAMMOGRAM [facility] Start: 03-20-2020 Shingrix Vaccine (2 of 2) Shingrix Vaccine (2 of 2) [facility] Start: 03-20-2020 Zoster Vaccines (2 of 2) Zoste r Vaccines (2 of 2) [facility] Start: 2018 RSV High Risk: (Elde rly (60+) or Population) (1 - Risk 60-74 years 1-dose series) RSV High Risk: (Elderly (60+) or Population) (1 - Risk 60-74 years 1-dose series) [facility] Start: 2018 RSV Vaccine (1 - 1-d ose 60+ series) RSV Vaccine (1 - 1-dose 60+ series) [facility] Start: 2008 Pneumococcal Vaccine : 50+ (2 of 2 - PCV) Pneumococcal Vaccine: 50+ (2 of 2 - PCV) [facility] Start: 2008 SHINGRIX VACCINE (1 of 2) SHINGRIX VACCINE (1 of 2) [facility] Start: 02-09-2004 Pneumococcal vaccination Pneum ococcal Vaccine (2 of 2 - PCV) [facility] Start: 07-29-2003 COLOGUARD (FIT-DNA) COLOGUARD (FIT-D NA) [facility] Start: 07-29-2003 Colonoscopy COLONOSCOPY [facility] Start: 07-29-2003 COLORECTAL CANCER SCREENING COLORECTAL CANCER SCREENING [facility] Start: 07-29-[address] COLONOGRAPHY [facility] Start: 07-29-2003 DIABETES SCREEN DIABETES SCREEN [facility] Start: 07-29-2003 Diabetes Screening Diabetes Screenin g [facility] Start: 07-29-2003 FECAL OCCULT BLOOD FECAL OCCULT BLOO D [facility] Start: 07-29-2003 Lipid 1996 panel - S nataly or Plasma Lipid Screening [facility] Start: 07-29-2003 Lipid panel Lipid Screening [facility] Start: 07-29-2003 LIPID SCREEN LIPID SCREEN [facility] Start: 07-29-2003 Screening for malign ant neoplasm of colon [facility] Start: 07-29-2003 [facility] Start: 1998 Screening for malign ant neoplasm of breast Mammogram [facility] Start: 1988 HPV TESTING HPV TESTING [facility] Start: 1980 DTaP/Tdap/Td Vaccine s (1 - Tdap) DTaP/Tdap/Td Vaccines (1 - Tdap) [facility] Start: 07-29-1979 PAP TESTING PAP TESTING [facility] Start: 07-29-1979 Screening for malign ant neoplasm of cervix [facility] Start: 1977 Urine microalbumin profile [facility] Start: 1976 Anxiety Screening Anxiety Screening [facility] Start: 1976 Depression Screening Depression Scre ening [facility] Start: 1976 HEPATITIS C SCREENING HEPATITIS C [facility] Start: 1976 Hepatitis C screening Hepatitis C [facility] Start: 1976 HIV SCREENING HIV SCREENING [facility] Start: 1976 HIV screening HIV Screening [facility] Start: 1970 Adult depression screening assessment DEPRESSION SCREENING [facility] Start: 07-29-1959 MMR Vaccines (1 of 1 - Standard series) MMR Vaccines (1 of 1 - Standard series) [facility] Start: 1958 Lipid panel Lipid Panel [facility] Start: 1958 Screening for malign ant neoplasm of colon [facility] Start: 1958 Screening for osteoporosis Bone Density Scan [facility] Start: 1958 Yearly Adult Physical Yearly Adult P hysical [facility] COLOGUARD COLOGUARD Lab Ro utine Encounter for screening for malignant neoplasm of colon Ordered: 08/27/2021 [facility] Work Phone: Comment on above: Ordered: 08/27/2021 End: 04-12-2024 CT for calcium scoring WO contrast and CTA W contrast IV Heart and coronary arteries [facility] Service Area Work Phone: Comment on above: Once for 1 Occurrenc es starting 04/12/2024 until 04/12/2024 End: 09-26-2022 [facility] SCRE[facility]ING [facility] Radiology Routine Encounter for screening mammogram for malignant neoplasm of breast 1 Occurrences starting 08/27/2021 until 09/26/2022 [facility] Work Phone: Comment on above: 1 Occurrences starti ng 08/27/2021 until 09/26/2022 End: 03-24-2024 DOUGLAS SCREENING [facility] SCRE[facility] Radiology Routine Encounter for screening mammogram for breast cancer 1 Occurrences starting 02/23/2023 until 03/24/2024 [facility] Work Phone: Comment on above: 1 Occurrences starti ng 02/23/2023 until 03/24/2024 [facility] Immunizations Immunization Date Immunization Notes Care Provider Fa [facility] 03-11-2020 Influenza, injectabl e, Madin Rena Canine Kidney, preservative free, quadrivalent Kristal Mari MD Work Phone: [facility] 03-11-2020 influenza virus vacc ine, unspecified formulation Kristal Mari MD Work Phone: [facility] 01-24-2020 zoster vaccine recombinant Kristal Mari MD Work Phone: [facility] 02-08-2003 pneumococcal polysaccharide vaccine, 23 valent Kristal Mari MD Work Phone: [facility] 02-08-[address] Bárbara Abrams Work Phone: [facility] Work Phone: 02-08-2003 pneumococcal vaccine , unspecified formulation [facility] Payers Date Payer Category Payer Medicare [id number] 2024 Unknown [id number] 2024 Self-pay [id number] 2024 Self-pay [id number] 2024 Managed Care (Private) [employer] [id number] 2024 Private Health Insurance CHELITA SHELDON PPO TPA [id number] 2024-Present [address] [place] [phone] PPO [id number] 2022 Unknown ANTHLAURA RENTERIA ACCE SS PPO [id number] 2022-Present [phone] [address] [place] [address] PPO [id number] 2020 Unknown [employer] E PPO [id number] 2020-Present [phone] [address] [place] [address] PPO [id number] 2013 Private Health Insurance 0 [id number] 2013 Unknown [id number] 1960 Unknown [id number] Unknown [id number] Unknown [id number] Unknown [id number] Unknown [id number] Unknown [id number] Social History Date Type Detail Facility Start: 06-03-2021 Tobacco smoking status NHIS Unknown if ever smoked [facility] Start: 03-25-2020 None [facility] Start: 03-25-2020 Spouse/ Signif icant Other [facility] Start: 1960 Sex Assigned At Female W [facility] Start: 07-24-2020 End: 06-03-2021 Tobacco smoking status NHIS Never smoked tobacco [facility] Work Phone: Start: 07-24-2020 End: 02-01-2024 Tobacco use and exposure Smokeless tobacco non-user [facility] Work Phone: Start: 08-27-2021 End: 02-27-2024 Alcohol intake Current drinker of alcohol (finding) [facility] Start: 1960 Sex Assigned At Not on file C [facility] Start: 07-24-2021 End: 04-12-2024 Exposure to SARS-CoV-2 (event) Not sure [facility] Start: 03-18-2016 Non-smoker [place] [facility] Start: 02-23-2023 End: 02-27-2024 History of Social function [facility] Start: 02-23-2023 End: 02-27-2024 Tobacco use panel [facility] National Score (1-100), lower number is lower risk 76 [facility] Clinical Notes 08-27-2021 to 04-08-2024 Telephone Encounter - Catherine Conti RN - 04/08/2024 1:19 PM ESTTelephone Encounter - Catherine Conti RN - 04/08/2024 1:19 PM Kristal Connelly MD - 02/27/2024 11:13 AM EST Note Date & Type Note Facility 04-08-2024 Telephone encounter Note Patient notified. She plans to contact her PCP. Catherine Conti RN [facility] 04-08-2024 Miscellaneous Notes Patient notified. She plans to contact her PCP. Catherine Conti RN Please notify patient that her BMD shows osteoporosis - recommend follow up with Endocrinology or PCP for discussion of treatment options. documented in this encounter [facility] 04-08-2024 Telephone encounter Note Please notify patient that her BMD shows osteoporosis - recommend follow up with Endocrinology or PCP for discussion of treatment options. [facility] Work Phone: 04-04-2024 Note HNO ID: [id number] Author: CATHERINE CONTI, ABEBE Service: ? Author Type: Registered Nurse Type: Progress Notes Filed: 04/04/2024 13:39 Note Text: Scan on 04/03/2024 6:12 PM by Provider, PRATIK Tran: Bone Density [facility] 02-27-2024 Note HNO ID: [id number] Author: KRISTAL GOLDMAN MD Service: ? Author Type: Physician Type: Progress Notes Filed: 02/27/2024 13:17 Note Text: Economic Specialist offered: Patient declines. 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 As applicable, any other physician, advance practice provider, medical student, or other health professional student that will be observing or involved in the sensitive examination for educational or training purposes was discussed with the Patient or Authorized Customer Service Officer. The Patient or Authorized Customer Service Officer has agreed to proceed with the sensitive [...] up one year or sooner as needed Kristal Luna MD [facility] 02-27-2024 History of Presen t illness Narrative Economic Specialist offered: Patient declines. 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 As applicable, any other physician, advance practice provider, medical student, or other health professional student that will be observing or involved in the sensitive examination for educational or training purposes was discussed with the Patient or Authorized Customer Service Officer. The Patient or Authorized Customer Service Officer has agreed to proceed with the sensitive [...] up one year or sooner as needed Kristal Luna MD documented in this encounter [facility] 02-01-2024 Note HNO ID: [id number] Author: JOSHUA E[place] APRN.PIT SUPERVISOR Service: ? Author Type: Nurse Practitioner Type: Progress Notes Filed: 02/01/2024 13:37 Note Text: This note was created using [employer]. Subjective Zohreh Vazquez is a 63 year [...] DOXYCYCLINE MONOHYDRATE 100 MG CAPSULE Joshua [place] APRN.PIT SUPERVISOR [facility] 02-01-2024 History of Presen t illness Narrative This note was created using [employer]. Subjective Zohreh Vazquez is a 63 year [...] DOXYCYCLINE MONOHYDRATE 100 MG CAPSULE Joshua [place]man APRN.SHAQUILLE documented in this encounter [facility] 02-24-2023 Miscellaneous Notes Called and notified that the order was faxed along with the mammogram to [facility] yesterday. They were on the same order form. Patient will call [facility]. Catherine Conti RN Patient verified by name and . She is requesting to have an Bone Density order faxed to [facility]. Review and advise. documented in this encounter [facility] 02-23-2023 History of Presen t illness Narrative Economic Specialist offered: Patient declines. Zohreh is a 62 year old who presents for an annual gynecologic exam with complaints, review bloodwork, concerns re blood glucose and CAD . Also concerned about hair loss. New onset breast cancer in [id number] - concerns re appropriate screening. 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 NEURO: alert and oriented x3,exam grossly non-focal EXTREMITIES: normal ASSESSMENT/PLAN: 1) Health maintenance: Pap/HPV screening no longer needed Mammogram ordered [facility] Mammogram up to date Nutrition, exercise and routine health maintenance exams reviewed. Calcium/Vitamin D supplementation information provided. Colon cancer screening: up to date with screening BMD: ordered [facility] 2) Follow up one year or sooner as needed Kristal Luna MD documented in this encounter [facility] 09-12-2022 Miscellaneous Notes Order for screening mammogram signed by DM and faxed to [facility]. Becca Hernandes RN documented in this encounter [facility] 08-27-2021 Instructions Kristal Mari MD - 08/27/2021 9:48 AM EDT The Obesity Code by Dr. 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 NEURO: alert and oriented x3,exam grossly non-focal EXTREMITIES: normal ASSESSMENT/PLAN: 1) Health maintenance: Pap/HPV screening no longer needed Mammogram ordered [facility] Nutrition, exercise and routine health maintenance exams reviewed. Colon cancer screening: cologuard ordered 2) Follow up one year or sooner as needed Kristal Luna MD Economic Specialist offered: Patient declines. documented in this encounter [facility] Chief complaint+Reason for visit Narrative Reason for Visit Encounter for screening for COVID-19 [facility] Work Phone: Chief complaint+Reason for visit Narrative* Chief Complaint COVID FOR TRAVEL SCREENING Reason for Visit Encounter for screen ing for COVID-19 [facility] Work Phone: Evaluation note* Diagnosis Onset Date Resolution Status Encounter for screening for COVID-19 acute [facility] Work Phone: Evaluation note* Diagnosis Encounter for gynecological examination (general) (routine) without abnormal findings- Primary Encounter for screening mammogram for malignant neoplasm of breast Other screening mammogram Encounter for screening for malignant neoplasm of colon Special screening for malignant neoplasms, colon documented in this encounter [facility] noteNo assessment information [facility]WAv[facility] Work Phone: Evaluation note* Diagnosis Encounter for gynecological examination (general) (routine) without abnormal findings- Primary Encounter for screening mammogram for breast cancer Establishing care with new doctor, encounter for Other reasons for seeking consultation documented in this encounter [facility] note* Diagnosis Tick bite of neck, initial encounter- Primary documented in this encounter [facility] note* Diagnosis Encounter for gynecological examination (general) (routine) without abnormal findings- Primary documented in this encounter [facility] note* Diagnosis Atherosclerotic heart disease of viejas coronary artery without angina pectoris documented in this encounter [facility] Work Phone: Reason for referral (narrative)* Diagnostic Procedure Only (Routine) - Pending Review Specialty Diagnoses / Procedures Referred By Garcia davis Referred To Contact [facility] IMAGING Diagnoses Encounter for screening mammogram for malignant neoplasm of breast Procedures DOUGLAS SCREENING W HAWA SCREENING DIGITAL BREAST TOMOSYNTHESIS BI SCREENING MAMMOGRAPHY BI 2-VIEW BREAST INC CAD Kristal Goldman MD [address] [place] [address] [facility] [address] [place] [address] Referral ID Status Reason Start Date Expiration Date Visits Requested Visits Authorized [id number] Pending Review Auto-Generat ed Referral 08/27/2021 09/26/2022 1 1 [facility]No reason for referral information availableWAvita [facility] Work Phone: Reason for visit Narrative* Imaging (Routine) - Pending Review Specialty Diagnoses / Procedures Referred By Garcia davis Referred To Contact Radiology Diagnoses Atherosclerotic heart disease of viejas coronary artery without angina pectoris Procedures CT cardiac scoring wo IV contrast Chago Abrams MD [address] [place] [address] Phone: tel: fax: Referral ID Status Reason Start Date Expiration Date Visits Requested Visits Authorized [id number] Pending Review Perform Procedure 4 02/26/2025 1 1 [facility] Work Phone: Summary Purpose Family History No [...] Will Yes March 25 10:00am Power of Bone Tender Yes March 25, 2020 10:00am Advance Directive Response Recorded Date/ Time Advance Directives Yes April 25, 2017 10:39am Chief Complaint and Reason for Visit Chief Complaint SCREENING CHEST PAIN CHEST PAIN Chief Complaint SCREENING Chief Complaint Admit Date SCREENING November 08, 2024 8:5 9am Reason for Referral Specialty Diagnoses / Procedures Referred By Garcia davis Referred To Contact Internal Medicine Diagnoses Establishing care with new doctor, encounter for Procedures CONSULT TO INTERNAL MEDICINE OFFICE/OUTPATIENT [facility] 60-74 MINUTES Kristal Goldman MD [address] [place] [address] Referral ID Status Reason Start Date Expiration Date Visits Requested Visits Authorized [id number] Authorized PCP Requested Referral 3 02/23/2024 1 1 Specialty Diagnoses / Procedures Referred By Contac t Referred To Contact [facility] IMAGING Diagnoses Encounter for screening mammogram for breast cancer Procedures DOUGLAS SCREENING W HAWA SCREENING DIGITAL BREAST TOMOSYNTHESIS BI SCREENING MAMMOGRAPHY BI 2-VIEW BREAST INC CAD Kristal Goldman MD [address] [place] [address] [facility] [address] [place] [address] Referral ID Status Reason Start Date Expiration Date Visits Requested Visits Authorized [id number] Authorized Auto-Generat ed Referral 3 03/24/2024 1 1 Additional Source Comments INFORMATION SOURCE (unrecogn ized section and content) DATE CREATED AUTHOR [facility]/29/2017 [facility] DATE CREATED AUTHOR AUTHOR'S ORGANIZ ATION 04/09/2024 [facility] DATE CREATED AUTHOR AUTHOR'S ORGANIZ ATION 04/19/2024 [facility] DATE CREATED AUTHOR AUTHOR'S ORGANIZ ATION 11/18/2024 [facility] Goals (unrecognized section and content) Goals [...] or prosecute any alcohol or drug abuse patient.[facility] the event this information is protected by the Federal Confidentiality of Alcohol and Drug Abuse Patient Records regulations: The Federal rules restrict any use of the information to criminally investigate or prosecute any alcohol or drug abuse patient.[facility] the event this information is protected by the Federal Confidentiality of Alcohol and Drug Abuse Patient Records regulations: The Federal rules restrict any use of the information to criminally investigate or prosecute any alcohol or drug abuse patient.[facility] Center[facility] the event this information is protected by the Federal Confidentiality of Alcohol and Drug Abuse Patient Records regulations: The Federal rules restrict any use of the information to criminally investigate or prosecute any alcohol or drug abuse patient.[facility] the event this information is protected by the Federal Confidentiality of Alcohol and Drug Abuse Patient Records regulations: The Federal rules restrict any use of the information to criminally investigate or prosecute any alcohol or drug abuse patient.[facility] Center[facility] the event this information is protected by the Federal Confidentiality of Alcohol and Drug Abuse Patient Records regulations: The Federal rules restrict any use of the information to criminally investigate or prosecute any alcohol or drug abuse patient.[facility] Center[facility] the event this information is protected by the Federal Confidentiality of Alcohol and Drug Abuse Patient Records regulations: The Federal rules restrict any use of the information to criminally investigate or prosecute any alcohol or drug abuse patient.[facility] Reason for Visit (unrecogniz ed section and content) Reason Comments Yearly Exam Reason Comments Mammogram Order Reason Comments Yearly Exam Reason Comments Orders Reason Comments Tick Tick is imbedded L s mayela of neck x 1 day Reason Comments Yearly Exam Reason Comments Results Care Teams (unrecognized sec tion and content) Director Insurance Relationship Specialty Start Date End Date Yogesh Nice [address] [place] [address] PCP - General 07/21/00 Director Insurance Relationship Specialty Start Date End Date Yogesh Nice [address] [place] [address] PCP - General 07/21/00 Team Status: Active Member Role Status Dates Dr. Chago Abrams MD Family Provider Active Dr. Chago Abrams MD Primary Care Provider Active Team Status: Inactive Member Role Status Dates Dr. Chago Abrams MD Primary Care Provider Active Dr. Kristal Luna MD Attending Provider, R eferring Provider Active Director Insurance Relationship Specialty Start Date End Date Chago Abrams MD [address] [place] [address] PCP - General Family Medicine 02/23/23 Director Insurance Relationship Specialty Start Date End Date Chago Abrams MD [address] [place] [address] PCP - General Family Medicine 02/23/23 Director Insurance Relationship Specialty Start Date End Date Chago Abrams MD [address] [place] [address] PCP - General Family Medicine 02/23/23 Director Insurance Relationship Specialty Start Date End Date Chago Abrams MD [address] [place] [address] PCP - General Family Medicine 02/23/23 Director Insurance Relationship Specialty Start Date End Date Chago Abrams MD [address] [place] [address] PCP - General Family Medicine 04/12/24 Team Status: Active Member Role/Relationship Status Dates Dr. Chago Abrams MD Primary Care Provider Active Team Status: Inactive Member Role/Relationship Status Dates Dr. Chago Abrams MD Primary Care Provider Active Start: November 08, 2024 End: November 08, 2024 Dr. Kristal Luna MD Attending Provider Ac tive Start: November 08, 2024 End: November 08, 2024 Dr. Kristal Luna MD Referring Provider Ac tive Start: November 08, 2024 End: November 08, 2024 FOR RECORDS PERTAINING TO PATIENTS WHO ARE [...] BE BASED ON THE PRIMARY CLINICAL RECORDS. [facility] [employer], [facility]. provides no warranty or guarantee of the accuracy or completeness of information in this document.
[2025-01-31 21:50] VITALS: BP 123/82; PULSE 85; RESP 16; TEMP 36.9; O2SAT 97
[2025-02-02 10:08] LABS: Lyme Ab Screen Interpretation Lyme Abs Unconfirmed (.); Lyme Scn Total Ab w/Rflx Positive (Negative)
== END 2025-01-31 21:52 | disposition home or self-care (01) ==
LOC: ED 21:47
PROVIDERS: Emergency Provider Emergency Medicine; PCP Family Medicine; Visit Provider Emergency Medicine
DX: S80.861A Insect bite (nonvenomous), right lower leg, initial encounter (principal); E03.9 Hypothyroidism, unspecified; E78.5 Hyperlipidemia, unspecified; W57.XXXA Bitten or stung by nonvenomous insect and other nonvenomous arthropods, initial encounter
CPT/HCPCS: 36415; 86618; 99282

== ENCOUNTER 2025-03-06 13:26 | Emergency (ER) | payer MEDICARE, OTHER, SELFPAY ==
[2025-03-06 13:27] VITALS: BP 148/87; PULSE 87; RESP 20; TEMP 36.3; O2SAT 100; BMI 28.0
--- NOTE | 2025-03-06 13:44 | EKG12_ITS ---
Test Reason : Blood Pressure : */* mmHG Vent. Rate : 71 BPM Atrial Rate : 71 BPM P-R Int : 144 ms QRS Dur : 88 ms QT Int : 402 ms P-R-T Axes : 18 22 24 degrees QTcB Int : 436 ms Normal sinus rhythm Normal ECG Confirmed by LALA PHOENIX ([id number]), website/blog editor KAIN SERNA ([id number]) on 03/10/2025 6:39:11 AM Referred By: Confirmed By: LALA PHOENIX
--- NOTE | 2025-03-06 13:44 | EDS_ITS ---
HPI History of Present Illness Chief Complaint: Constipation Narrative Narrative: Patient is a 64-year-old female who presents to the emergency department with a chief complaint of abdominal pain. States that she had her last bowel movement 5 days ago and states that starting about 3 days ago she developed abdominal pain. States that she has tried several ebre-igb-bvhyrlp remedies including magnesium citrate the entire bottle, stool softeners, warm baths, heating pads and nothing seems to be helping her pain. She states that she is not passing gas. Patient states that it feels like she is trying to a 10 pound baby. [facility] Medical History Encounter for screening for COVID-19 Home Medications ?Medication ?Instructions ?Recorded ?Last Taken ?Type multivitamin with folic acid 400 1 tab PO DAILY 01/07/14 History mcg tablet (Thera) ascorbic acid (vitamin C) 1,000 mg 1,000 mg PO DAILY 1 04/27/15 Unknown History tablet (Vitamin C) cholecalciferol (vitamin D3) 25 1,000 unit PO DAILY Unknown History mcg (1,000 unit) chewable tablet (Vitamin D3) levothyroxine 50 mcg tablet 50 mcg PO DAILY ##1 Unknown Rx aspirin 81 mg chewable tablet 81 mg PO DAILY@0800 02/09 06/23 Unknown History atorvastatin 20 mg tablet 20 mg PO DAILY 01/31/25 Unkn own History bupropion HCl 150 mg tablet,12 hr 150 mg PO DAILY 01/09 08/02 Unknown History sustained-release cephalexin 500 mg capsule 500 mg PO Q6 #16 CAPSULES Unknown Rx amoxicillin 875 mg-potassium 1 tab PO BID 7 days #14 t abs 03/06/25 Unknown Rx clavulanate 125 mg tablet dicyclomine 20 mg tablet 20 mg PO TID PRN abdominal p ain 03/06/25 Unknown Rx #20 tabs ondansetron 4 mg disintegrating 4 mg PO Q6H PRN nausea and 03/06/25 Unknown Rx tablet vomiting #20 tabs peg 3350-electrolytes 236 240 ml PO Q10M PRN #4,000 mL 03/06/25 Unknown Rx gram-22.74 gram-6.74 gram-5.86 gram solution Allergy/AdvReac Type Severity Reaction Status Date / Time No Known Allergies Allergy Verified 03/06/25 13:28 Social History household members: spouse Smoking Status: Never smoker ROS ROS ED ROS Narrative Constitutional: Denies any fevers or chills Cardiovascular: Denies chest pain Respiratory: Denies shortness of breath Abdomen: Complains of abdominal pain as noted above : Denies urinary symptoms Neurological: Denies numbness, weakness, tingling Musculoskeletal: Complains of back pain Skin: Denies any rashes or lesions EXAM Physical Exam Narrative Exam Narrative: General: Patient was lying in bed did appear to be uncomfortable secondary to her abdominal pain Head: Atraumatic, normocephalic Eyes: PERRL bilaterally, EOMI bilaterally, no conjunctival injection noted Neck: Soft, supple, trachea midline Cardiovascular: Regular rate and rhythm Respiratory: Clear to auscultation bilaterally Abdomen: Soft, nondistended, diffuse tenderness to palpation no rebound or guarding on exam Extremities: +5/5 strength noted in the bilateral upper and lower extremities Neurological: Patient following commands that she was at [facility] the year is 2024 Skin: Warm, dry, intact no rashes or lesions noted Const Vital Signs: 03/06/25 13:27 03/06/25 15:26 Temperature 97.4 F L Temperature Source Temporal Pulse Rate 87 79 Respiratory Rate 20 H 16 Blood Pressure 148/87 H 131/87 H Blood Pressure Mean 107 101 Pulse Ox 100 98 Oxygen Delivery Method Room Air Room Air MDM MDM MDM Narrative Medical decision making narrative: Patient is a 64-year-old female who presented to the emergency department the chief complaint of abdominal pain and not having a bowel movement in approximately 5 days. On the differential diagnosis includes but not limited to fecal impaction,, constipation, bowel obstruction. Once the workup is obtained and reviewed she will be reevaluated patient will be given IV fluids. Patient CBC reviewed and showed a white blood count is normal at 9.5, hemoglobin is 14.5, patient has a macrocytic anemia with MCV of 100. Patient platelet count normal at 204. Patient sodium normal 138, potassium normal 4.2, creatinine normal at 0.80. Patient's AST and ALT normal at 20 and 31 respectively total bilirubin normal at 0.60. Patient lipase normal at 27. Patient urinalysis reviewed showed no evidence of infection. Patient CT ab pelvis with IV contrast reviewed and showed findings consistent with sigmoiditis underlying mass is not excluded. Moderate colonic stool burden suggesting constipation. Patient is EKG showed sinus rhythm rate of 71 bpm MS interval 144 Patient was given a dose of Augmentin. Discussed the results with the patient and she states that has been several years since her last colonoscopy she was advised that she needs to obtain colonoscopy to ensure that this is not colon cancer she was given hardcopy of these results. She is requesting something for her constipation given that she has tried several uuqt-xbg-rlbxtrp medications including mag citrate she will be given GoLytely. She is advised to return with worsening symptoms or concerns. She is agreeable this plan as well as significant other at bedside all question concerns answered she was discharged home in stable condition. Patient was also given prescriptions for Bentyl, Zofran. Lab Data Labs: Laboratory Results - last 24 hr 03/06/25 03/06/25 13:53 14:00 WBC 9.5 RBC 4.42 Hgb 14.5 Hct 44.2 MCV 100.0 H MCH 32.8 H MCHC 32.8 RDW Std Deviation 47.3 H RDW Coeff of Rosendo 12.8 Plt Count 204 MPV 8.8 Immature Gran % (Auto) 0.300 Neut % (Auto) 61.6 Lymph % (Auto) 25.1 Cocke % (Auto) 10.5 H Eos % (Auto) 1.8 Baso % (Auto) 0.7 Absolute Neuts (auto) 5.9 Absolute Lymphs (auto) 2.39 Nucleated RBC % 0 Sodium 138 Potassium 4.2 Chloride 101 Carbon Dioxide 26.1 Anion Gap 11 BUN 15 Creatinine 0.80 Estim Creat Clear Calc 68.25 Est GFR (MDRD) Non-Af 82 BUN/Creatinine Ratio 18.7 Glucose 82 Calcium 9.4 Total Bilirubin 0.60 AST 28 ALT 31 Alkaline Phosphatase 49 Total Protein 6.9 Albumin 4.4 Globulin 2.5 Albumin/Globulin Ratio 1.8 Lipase 27 Urine Color Yellow Urine Clarity Clear Urine pH 6.5 Ur Specific [place] 1.005 Urine Protein Negative Urine Glucose (UA) Normal Urine Ketones Negative Urine Occult Blood Negative Urine Nitrite Negative Urine Bilirubin Negative Urine Urobilinogen Normal Ur Leukocyte Esterase Negative Urine RBC 0 SEEN Urine WBC 0-5 SEEN Ur Squamous Epith Cells 0-5 SEEN Urine Bacteria 0 SEEN Urine Mucus 0 SEEN Radiography Diagnostic Testing: Clinical Impression(s) from Imaging Studies Abdomen/Pelvis CT 03/06/25 14:25 IMPRESSION: 1. Diffuse thickening of the sigmoid colon with surrounding fat stranding concerning for sigmoiditis, underlying mass not excluded. 2. Moderate colonic stool burden suggesting constipation. Reading Location: [facility] Discharge Plan Triage Chief Complaint: Constipation ED Provider: Yovany Guo Dx/Rx/DC Orders Clinical Impression: Sigmoiditis, Constipation, Abdominal pain Prescriptions: New dicyclomine 20 mg tablet 20 mg PO TID PRN (Reason: abdominal pain) Qty: 20 0RF ondansetron 4 mg tablet,disintegrating 4 mg PO Q6H PRN (Reason: nausea and vomiting) Qty: 20 0RF amoxicillin-pot clavulanate 875-125 mg tablet 1 tab PO BID 7 Days Qty: 14 0RF peg 3350-electrolytes 236-22.74-6.74 -5.86 gram recon soln 240 ml PO Q10M PRN Qty: 4000 0RF Rx Instructions: until fecal effluent is clear No Action multivitamin with folic acid [Thera] 1 TABLET tablet 1 tab PO DAILY Patient Comments: vitamin ascorbic acid (vitamin C) [Vitamin C] 1,000 MG tablet 1,000 mg PO DAILY Patient Comments: vitamin cholecalciferol (vitamin D3) [Vitamin D3] 1,000 UNIT tablet,chewable 1,000 unit PO DAILY Patient Comments: vitamin levothyroxine 50 MCG tablet 50 mcg PO DAILY Qty: 1 0RF Patient Comments: thyroid aspirin 81 MG tablet,chewable 81 mg PO DAILY@0800 bupropion HCl 150 mg tablet sustained-release 12 hr 150 mg PO DAILY atorvastatin 20 mg tablet 20 mg PO DAILY cephalexin 500 mg capsule 500 mg PO Q6 Qty: 16 0RF Primary Care Provider: Chago Valles Referrals: Chago Valles MD [Primary Care Provider, Family Practice] Activity Restrictions/Additional Instructions: Follow-up with your doctors in our setting. Ensure that you get a colonoscopy as we discussed. Take prescriptions that were sent to your pharmacy as prescribed. Return with worsening symptoms or other concerns. Print Language: Ghanaian Disposition Disposition: Home, Self Care
--- OUTSIDE RECORDS SUMMARY | 2025-03-06 13:56 | XMS RPT_ITS | CCD ---
Author Organization [facility] Care Team Providers Care Facetor Name Role Phone TANISHA Unavailable Unavailable TANISHA Unavailable Unavailable TANISHA Unavailable Unavailable BRIANDA WHITMAN MD Unavailable Unavailable PROVIDER, UNKNOWN Unavailable Unavailable Dr. Chago Abrams Primary Care Provider [phone] Chago Abrams Referring Provider Prasad GAY, PA Sridhar Alaniz Attending Provider Yogesh Nice Primary Care Provider Dr. Chago Abrams Primary Care Provider [phone] Chago Abrams Referring Provider Dr. Chago Abrams Other Provider Dr. Chago Dixon Attending Provider Yogesh Nice Primary Care Provider [phone] Chago Abrams MD Primary Care Provider Chago Abrams MD Primary Care Provider [phone] Chago Abrams MD Primary Care Provider CHAGO ABRAMS Referring Unavailable CHAGO ABRAMS Primary Care Unavailable Dr. Chago Abrams MD Primary Care Provider Cheryl GOYAL, Dr. Giraldo Attending Provid er Dr. Kristal Luna MD Referring Provid er Chago Abrams Primary Care Unavailable Kristal Luna Referring Unavail able Kristal Luna Attending Unavail able Abrams, Chago Primary Care Unavailable Chago Abrams Attending Unavailable Chago Abrams Primary Care Unavailable Smallwood, Navjot Attending Unavailable Chago Abrams Primary Care Unavailable Ashley-Samantha Marire Referring Unavail able Nekarlat-MariSamantha larsonre Attending Unavail able NEYCHUAIDRE Referring Unavail able KRISTAL GOLDMAN Attending Unavail able CHAGO ABRAMS Primary Care Unavailable CHAGO ABRAMS Primary Care Unavailable ASHOK HOWELL Referring Unavailable CHAGO ABRAMS Primary Care Unavailable ASHOK HOWELL Attending Unavailable Allergies Allergy Classification Reported Allergen(s) Allergy Type Date of Onset Reaction(s) Facility (8 sources) Pethidine analog; Translations: [OPIOIDS-MEPERID INE AND RELATED] Drug Intolerance 1 Intolerance [facility] Work Phone: (1 source) ALLERGIES NOT ON FILE; Translations: [ALLERGIES NOT ON FILE] Propensity to adverse reactions (disorder) [facility] 2 Repository Medications Current Medications Medication Drug [...] TABLET PO DAILY January 09, 2014 12:00am Mac[place]-3 Fatty Acids (Fish Oil) 500 MG capsule (6 sources) Start: 02-26-2016 take 1 capsule by mouth once daily Macon-3 Fatty Acids (Fish Oil) 500 MG capsule Active 500 MG PO DAILY February 26, 2016 9:17pm Start: 02-26-2016 take 1 capsule by mo uth once daily Macon-3 Fatty Acids (Fish Oil) 500 MG capsule Active 500 mg PO DAILY February 26, 2016 1:00am Start: 02-26-2016 take 1 capsule by mo uth once daily Macon-3 Fatty Acids (Fish Oil) 500 MG capsule [...] 2016 1:00am February 29, 2016 10:56am Problems Problem Classification Problem Date Documented Da te Episodic/Chronic Acquired foot deformities (2 sources) Hallux rigidus, right foot; Translations: [Hallux valgus (acquired), right foot] Onset: 02-14-2025 Chronic Conditions associated with dizziness or vertigo (6 sources) Vertigo; Translations: [Dizziness and giddiness] 03-26-2020 Episodic Coronary atherosclerosis and other heart disease (4 sources) Coronary atherosclerosis; Translations: [Atherosclerotic heart disease of [place] coronary artery without angina pectoris] Onset: 04-12-2024 [...] Translations: [Other chest pain] 03-26-2020 Episodic Other connective tissue disease (2 sources) Pain in right foot; Translations: [Pain in right foot] Onset: 02-14-2025 Episodic Other gastrointestinal disorders (6 sources) Constipation; Translations: [Constipation, unspecified] 03-25-2020 Episodic Other nervous system disorders (6 sources) Paresthesia of hand ; Translations: [Paresthesia of skin] 03-26-2020 Episodic Other screening for suspected conditions (not mental disorders or infectious disease) (2 sources) Encounter for screening mammogram for malignant neoplasm of breast; Translations: [Encounter for screening for osteoporosis] Onset: 05-02-2024 Episodic Superficial injury; contusion (2 sources) Tick bite; Translations: [Insect bite of unspecified part of neck, initial encounter] Onset: 02-11-2025 02-01-2024 Episodic Thyroid disorders (6 sources) Hypothyroidism; Translations: [Hypothyroidism, unspecified] 02-29-2016 Chronic Results Test Name Value Interpretation Reference Range Facility [facility] 02-14-2025 CNOV Office Visit (PODIWS ) ----- ZOHREH VAZQUEZ ([id number]) 1960 F Date Time Provider Department 02/14/25 9:00 AM ASHOK HOWELL PODIWS During your visit today, we recorded the following information about you: Debbie Weiss, RN 02/14/2025 12:24 PM Signed Patient presents with: Right Foot - New, Pain Patient presents for right foot bunion. States that it worsened in the last 6 months and has now become painful especially when walking bare foot. Makes it difficult to wear most of her shoes. Xrays done prior to appointment Ashok Howell 02/14/2025 9:22 AM Addendum Powerstep Original Full length. Can purchase at [facility] Run[employer] and boots,shoes and more here in [place], [employer] in [place] or [place]. Also can find in [place] in [facility]. Powersteps can also be purchased online, starting around $45.00 If you have a metatarsal or dancer pad for your feet apply the pad directly to the insole so you can interchange between your shoes. Find a shoe with a removable insole and take this out and replace with your powerstep insole. Always bring powersteps with you when shopping for shoes so that you can make sure that everything fits well together We discussed your right foot arthritic bunion: - You have a moderate bunion deformity with arthritic changes and some cartilage loss in your right big toe joint, as seen on your x-rays. - I am providing you with an insert to help with the pain in your joint. Please try the insert first to see if it helps. - I am also giving you a pad to place between your toes to help prevent rubbing, and a dancer pad that you can use to take pressure off the painful area if needed. The nurses will show you how to use these pads with your insert. - Wearing good supportive shoes with a hard sole that does not bend, such as New Balance, Núñez, Hoka, or Asics, may help slow the progression of your symptoms. Shoes with a wider mesh toe box may also help accommodate your foot. - These conservative measures will not fix the bunion but may help with your symptoms. - If you are interested in a permanent solution, surgical options such as a fusion of the big toe joint can be considered in the future. This would correct the bunion and address the arthritic changes. Follow-up: - Let?s plan to follow up in 4 to 6 weeks to see how you are doing with the insert and pads. If you are feeling better, we can continue with this approach. If you are still having significant pain, we can discuss other options, including surgery. Gabriella Baig LPN 02/14/2025 12:24 PM Signed Per Zohreh Wong was provided with powerstep gel inserts with dancer pad right foot , size 8, and instructed/educated in its application, wear, and care. All questions were answered, and patient was able to demonstrate competence with the necessary skills to utilize the above equipment. Gabriella BaigPOLO Ashok Howell 02/14/2025 12:24 PM Signed Subjective The patient is a 64-year-old female with hypothyroidism and HLD presenting with a right foot bunion. The patient reports a right foot bunion present for approximately 6 months, with more rapid progression recently. She experiences pain on the plantar aspect of the right foot, particularly when pushing off the toe during ambulation. She is limited to wearing a single pair of New Balance shoes, as other footwear causes rubbing and increased pain. She is unable to walk comfortably in stocking feet. She has been using [id number] rubber toe spacers, which provide some symptomatic relief but have not improved the deformity. PMH is notable for hypothyroidism, for which she takes Synthroid, and HLD, for which she takes Lipitor. She previously took meloxicam but has discontinued it. She reports opioid intolerance due to constipation, specifically with Percocet, and prefers to avoid opioid medications. Musculoskeletal: (+) right foot pain Objective There were no vitals taken for this visit. - Cardiovascular: Dorsalis pedis and posterior tibial pulses palpable bilaterally; capillary refill <5 seconds; skin temperature warm to cool from proximal to distal. - Skin: No open sores on feet bilaterally; skin temperature slightly cool; normal skin color; toenails 1-5 on both feet thickened with yellow discoloration. - Neurological: Protective sensation intact bilaterally. - Musculoskeletal: - Right Foot: - Moderate bunion deformity with prominent medial eminence; rubbing between first and second toes. - Pain on plantar aspect of sesamoid apparatus. - ROM: Slightly diminished at first metatarsophalangeal joint with pain on dorsiflexion and plantar flexion. Assessment AND Plan # Right foot pain (M79.671) # Hallux rigidus of right foot (M20.21) # Hallux valgus of right foot (M20.11) Progressive right hallux valgus with associated hallux rig (more content not included)... Normal [facility] Lyme Screen W/Reflex WBon Lyme IGG CULLEN Negative Normal Negative [facility] Comment on above: Performed By: #### L 5077.3320 #### [facility] [address] [place], [place], [id number] Lyme IGM CULLEN Negative Normal Negative [facility] Comment on above: Performed By: #### L 7000.5300 #### [facility] [address] [facility] [place], [place], [id number] LYME SCREEN Ab Positive Normal Negative [facility] Comment on above: Result Comment: Evid ence of Lyme antibodies; confirmation indicated. See Lyme IgG and Lyme IgM results (reflex testing), and Lyme interpretation for final interpretation of the Lyme serology reflex algorithm. Performed By: #### L 7000.5300 #### [facility] [address] [facility] [facility] [place], [place], [id number] LYME SCREEN Ab Lyme Abs Unconfirmed Normal . [facility] Comment on above: Result Comment: No l aboratory evidence of infection with B. burgdorferi (Lyme disease). Negative results may occur in patients recently infected (less than or equal to 14 days) with B. burgdorferi. If recent infection is suspected, repeat testing on a new sample collected in 7 to 14 days is recommended. Performed at: [facility] [id number] Marine Scientist: Barry Hollingsworth PhD, Phone: [phone] Performed By: #### L [id number] #### [facility] [address] [place] [address]. [place], [place], [id number] Emergency Department Summary on 01-31-2025 Emergency Department Summary [facility] Medical Records Department [address] [place] [address] Emergency Department Summary 01/31/25 MR#: [id number] Acct: [id number] Name: ZOHREH VAZQUEZ Rep #: [id number] : 1960 64 From: Navjot Smallwood MD PCP: Dr. Chago Abrams MD Status:PRE ER Location: ED HPI History of Present Illness Chief Complaint: Bite Detail of Chief Complaint: Tick bite anterior right leg Informant: patient Onset/Context/Timing Onset: Yesterday Context: Sudden Onset Timing: Continuous Quality: On her leg for some time. She presents because of redness. Location: Anterior mid leg Current Severity: Mild Maximum Severity: Mild Worsened by: Not applicable Relieved by: removed tick Associated Symptoms Associated Symptoms: None Narrative Narrative: Patient is a pleasant 64-year-old woman who presents because of tick bite with redness anterior leg. Tick was removed by her . She is concerned because of the redness. She denies fever, chills night sweats. She denies drainage from the bite site. She states her dog was bit by a tick and tested positive for Lyme's. The tick was removed this morning by her . Prior similar symptoms: No Recent Illness/Hospitalization: [facility] Medical History Encounter for screening for COVID-19 Home Medications ???Medication ???Instructions ???Recorded ???Last Taken ???Type multivitamin with folic acid 400 1 tab PO DAILY 01/09/14 01/07/14 H istory mcg tablet (Thera) ascorbic acid (vitamin C) 1,000 mg 1,000 mg PO DAILY 02/26/16 Unkno wn History tablet (Vitamin C) cholecalciferol (vitamin D3) 25 1,000 unit PO DAILY 02/26/16 Unkno wn History mcg (1,000 unit) chewable tablet (Vitamin D3) levothyroxine 50 mcg tablet 50 mcg PO DAILY ##1 02/29/16 Unkno wn Rx aspirin 81 mg chewable tablet 81 mg PO DAILY@0800 03/02/16 Unkno wn History atorvastatin 20 mg tablet 20 mg PO DAILY 01/31/25 Unknown Hi story bupropion HCl 150 mg tablet,12 hr 150 mg PO DAILY 01/31/25 Unknown History sustained-release cephalexin 500 mg capsule 500 mg PO Q6 #16 CAPSULES 01/31/25 Unknown Rx Allergy/AdvReac Type Severity Reaction Status Date / Time No Known Allergies Allergy Verified 01/31/25 21:31 Social History (Updated 01/31/25 @ 21:[address] Navjot Smallwood MD) household members: spouse Smoking Status: Never smoker ROS ROS ED Constitutional Constitutional ED: Denies chills, fever(s) or subjective Musculoskeletal Musculoskeletal: Denies arthralgias or myalgias Integumentary Reports rash and other Details: Tick bite leg ; Denies abscess or Abrasions Hematologic/Lymphatic Hematologic/Lymphatic: Reports systems reviewed and no addt'l complaints, except as documented EXAM Physical Exam Const Vital Signs: 01/31/25 21:31 Temperature 98.4 F Temperature Source Oral Pulse Rate 84 Respiratory Rate 16 Blood Pressure 131/89 H Blood Pressure Mean 103 Pulse Ox 98 Oxygen Delivery Method Room Air Positive well nourished and well developed General Appearance ED: well developed and NAD HEENT Reports moist mucous membranes Negative for trauma or tenderness Eyes PERRL and EOMs intact bilaterally Resp normal respiratory effort Cardio regular rate and regular rhythm Extremity Negative for normal to inspection Extremity Narrative: Tick bite with erythema centrally size of a chickpea. There is also some fine erythema without induration. Radius from bite is 1 cm. There is no lymphangitis. There is no popliteal lymphadenopathy. There is no fluctuance. Neuro oriented x3 and CN's II-XII intact bilaterally Motor Exam: strength 5/5 throughout Psych mental status grossly normal Skin No no rashes or lesions noted and No no wounds MDM MDM MDM Narrative Medical decision making narrative: Patient presents with tick bite. Because of concern for Lyme disease Lyme test was drawn. Since there is evidence of early infection she was placed on cephalexin. Patient was informed if the Lyme titer is positive she will receive a call from the emergency room and treated with doxycycline. She states that the antibiotic that the bat placed her dog on. Discharge Plan Triage Chief Complaint: Bite ED Provider: Navjot Smallwood Dx/Rx/DC Orders Clinical Impression: Infected tick bite of lower leg, Hypothyroidism, Hyperlipidemia Instructions: ED Tick Bite, No Abx Tx Prescriptions: New cephalexin 500 mg capsule 500 mg PO Q6 Qty: 16 0RF No Action multivitamin with folic acid [Thera] 1 TABLET tablet 1 tab PO DAILY Patient Comments: vitamin ascorbic acid (vitamin C) [Vitamin C] 1,000 MG tablet 1,000 mg PO DAILY Patient Comments: vitamin cholecalciferol (vitamin D3) [Vitamin D3] 1,00 (more content not included)... Normal [facility] Breast imaging reportOrdered By: Kimberley Mosquera on 11-08-2024 Study report [facility] Services [address] [place] [address] SCRN MAMM (CAD)W/AHWA BILAT MR#: [id number] Acct: [id number] Name: ZOHREH VAZQUEZ Rep #: [id number] : 1960 F 64 From: Stephanie Mosquera MD PCP: Dr. Chago Abrams MD Status: REG C LI Study:SCRN MAMM (CAD)W/HAWA BILAT Date of Exa m: 11/08/24 Exam# [id number] Ordering Dr: Kristal Cid MD EXAM: SCRN [...] be mailed to the patient. Reading Location: [facility] CC: Dr Kristal Luna MD; Dr. Chago Abrams MD ~ Wet End Helper: Signed [facility] SCRN MAMM (CAD)W/HAWA BILATo n 11-08-2024 SCRN MAMM (CAD)W/HAWA BILAT [facility] Services [address] [place] [address] SCRN MAMM (CAD)W/HAWA BILAT MR#: [id number] Acct: [id number] Name: ZOHREH VAZQUEZ Rep #: [id number] : 1960 F 64 From: Kimberley Mosquera MD PCP: Dr. Chago Abrams MD Status: REG CLI Study: SCRN MAMM (CAD)W/HAWA BILAT Date of Exam: 05/04 Exam# [id number] Ordering Dr: Yuan MD EXAM: SCRN MAMM [...] be mailed to the patient. Reading Location: [facility] CC: Dr Kristal Luna MD; Dr. Chago Abrams MD Wet End Helper: Signed Normal [facility] CT CARDIAC SCORING WO IV CON TRASTon 04-12-2024 CT CARDIAC SCORING WO IV CONTRAST Interpreted By: Jose Manuel Howard, STUDY: CT CARDIAC SCORING WO IV CONTRAST; 04/12/2024 11:18 am INDICATION: Signs/Symptoms:HEART DISEASE. ,I25.10 Atherosclerotic heart disease of [place] coronary artery without angina pectoris COMPARISON: None. ACCESSION NUMBER(S): [id number] ORDERING CLINICIAN: CHAGO ABRAMS TECHNIQUE: Using prospective [...] coronary heart disease events. According to the [place] [employer] Clinical Expert Consensus [...] Manuel Howard 04/17/2024 10:46 AM Dictation workstation: [id number] [facility] 04-08-2024 CNPN Telephone (OBGYWM) ----- ZOHREH VAZQUEZ ([id number]) 1960 F Date Time Provider Department 04/08/24 KRISTAL GOLDMAN OBGYWM During your visit today, [...] Status:Closed by CATHERINE CONTI on 04/08/24 Normal [facility] Dexa Bone Density Studyon Dexa Bone Density Study [facility] Services [address] [place] [id number] Dexa Bone Density Study MR#: [id number] Acct: [id number] Name: ZOHREH VAZQUEZ Rep #: [id number] : 1960 F 63 From: Pankaj Woo MD PCP: Dr. Chago Abrams MD Status: [facility] Study: Dexa Bone Density Study Date of Exam: 04/02/24 Exam# [id number] Ordering Dr: Yaun MD [id number] STUDY: DUAL ENERGY X-RAY ABSORPTIOMETRY / DXA [...] Kristal Luna MD; Dr. Chago Abrams MD Wet End Helper: Signed Normal [facility] PT D/C Summary (1)on 024 PT D/C Summary (1) [facility] Physical Therapy [facility] [address] [place] [address] / REHABILITATION SERVICES DISCHARGE SUMMARY MR#: [id number] Acct: [id number] Name: ZOHREH VAZQUEZ Rep #: [id number] : 1960 63 From: Reji Siddiqui PT, Cert. T, OCS Referring Dr.: Dr. Chago Abrams MD Status: REG RCR Insurance: [employer] [facility] PACKAGE PLAN Discharge Summary D/C summary: [...] please feel free to call me at [phone]. Thank you for the referral of this patient. Sincerely, Reji Siddiqui PT, Cert MDT, OCS Balance/Gait/Functional tests Balance/Special Test Scores Quick DASH Score: 43.1800 Improvement % Improvement: 90 03/21/24 1755 CC: Dr. 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 As applicable, any other physician, advance practice provider, medical student, or other health professional student that will be observing or involved in the sensitive examination for educational or training purposes was discussed with the Patient or Authorized Dust Control Engineer. The Patient or Authorized Dust Control Engineer has agreed to proceed with the sensitive [...] Kristal Luna MD Referring Provider: KRISTAL GOLDMAN [[id number]] Allergies As of Date: 02/27/2024 Noted Allergy [...] Date: 02/27/2024 (more content not included)... Normal [facility] Inital Evaluation (1) - PTon 02-14-2024 Inital Evaluation (1) - PT [facility] [address] [place] [address]. [address] [place] [address] / REHABILITATION SERVICES INITIAL EVALUATION MR#: [id number] Acct: [id number] Name: ZOHREH VAZQUEZ Rep #: [id number] : 1960 63 From: Reji Siddiqui PT, Cert. T, OCS Referring Dr.: Dr. Chago Abrams MD Status: REG RCR Insurance: [employer] Patient's Visit Information Visit Information Visit Information: ZOHREH VAZQUEZ is a 63 year old F referred to Physical Therapy by Dr. Chago Abrams MD with a diagnosis of TENDINOSIS SHOULDER. Date of Evaluation: 02/14/24 Physical Therapist: Reji Siddiqui, PT, Cert MDT, OCS Visit Plan Duration: 4 Weeks Plan: [...] improve he (more content not included)... Normal [facility] Basophil percentageon 04-04- 2022 Bilirubin [Mass/Vol] 0.40 mg/dL 0.20-1.00 [facility] Work Phone: Comment on above: For patients on eltr ombopag therapy, use of Dimension [place] TBIL is not recommended. Chloride [Moles/Vol] 110 mmol/L 98-107 [facility] Work Phone: [phone] Cholesterol [Mass/Vol] 174 mg/dL <200 [facility] Work Phone: [phone] Comment on above: <200 mg/dL Desirable 200-240 mg/dL Borderline >240 mg/dL High Risk Glucose [Mass/Vol] 95 mg/dL 74-106 [facility] Work Phone: Potassium [Moles/Vol] 3.9 mmol/L 3.5-5.1 [facility] Work Phone: [phone] Protein [Mass/Vol] 6.8 g/dL 6.4-8.2 [facility] Work Phone: Sodium [Moles/Vol] 141 mmol/L 136-145 [facility] Work Phone: Triglyceride [Mass/Vol] 116 mg/dL [facility] Work Phone: Comment on above: The drugs N-Acetylcy steine and Metamizole may falsely depress this assay.Serum Triglycerides Reference Interval Normal <150 mg/dL Borderline high 150 - 199 mg/dL High 200 - 499 mg/dL Very High > or = 500 mg/dL Laboratory - Chemistry and C hemistry - challengeon 07-12-2021 ALP [Catalytic activity/Vol] 51 U/L 45-117 [facility] Work Phone: ALT [Catalytic activity/Vol] 61 U/L 13-56 [facility] Work Phone: CO2 [Moles/Vol] 28.0 mmol/L 21.0-32.0 [facility] Work Phone: Free T4 [Mass/Vol] 0.81 ng/dL 0.76-1.46 [facility] Work Phone: Globulin (S) [Mass/Vol] 3.0 g/dL 2.2-4.2 [facility] Work Phone: Urea nitrogen/Creatinine [Mass ratio] 23.8 mg/mg 10-20 [facility] Work Phone: No Panel Informationon 07-12 Estimated GFR (MDRD) Amer 83 mL/min >60 [facility] Work Phone: Comment on above: GFR Calc Estimated GFR (MDRD) Non-Af Amer 69 mL/min >60 [facility] Work Phone: Comment on above: Non- GFR Calc Free Triiodothyronine (T3) pg/dL 2.8 pg/mL 2.18-3.98 [facility] Work Phone: Thyroid Stimulating Hormone (TSH) 2.18 uIU/mL 0.358-3.74 [facility] Work Phone: Serum or plasma albumin roland urement (mass/volume)on 07-12-2021 Albumin [Mass/Vol] 3.8 g/dL 3.2-5.0 [facility] Work Phone: Serum or plasma albumin/glob ulin mass ratioon 07-12-2021 Albumin/Globulin [Mass ratio] 1.3 {ratio} 0.9-2.4 [facility] Work Phone: Serum or plasma calcium roland urement (mass/volume)on 07-12-2021 Calcium [Mass/Vol] 9.1 mg/dL 8.5-10.1 [facility] Work Phone: Serum or plasma cholesterol in HDL measurement (mass/volume)on 07-12-2021 Cholesterol in HDL [Mass/Vol] 54 mg/dL [facility] Work Phone: Comment on above: The drugs N-Acetylcy steine and Metamizole may falsely depress this assay. Reference Range HDL <40 mg/dL Low HDL Cholesterol HDL >or= 60 mg/dL High HDL Cholesterol Serum or plasma cholesterol in VLDL measurement (mass/volume)on 07-12-2021 Cholesterol in VLDL [Mass/Vol] 23 mg/dL 5-40 [facility] Work Phone: Serum or plasma creatinine m easurement (mass/volume)on 07-12-2021 Creatinine [Mass/Vol] 0.88 mg/dL 0.55-1.02 [facility] Work Phone: Comment on above: The validity of the calculated GFR & GFRAA in patients over 70 years has not been determined. Clinical correlation is essential. Serum or plasma low density lipoprotein (LDL) cholesterol measurement (mass/volume)on 07-12-2021 Cholesterol in LDL [Mass/Vol] 97 mg/dL 0-130 [facility] Work Phone: Serum or plasma urea nitroge n measurement (mass/volume)on 07-12-2021 Urea nitrogen [Mass/Vol] 21 mg/dL 7-18 [facility] Work Phone: Thin prep Papanicolaou smear with manual screeningon 07-12-2021 Thin prep Papanicolaou smear with manual screening 25 U/L 15-37 [facility] Work Phone: Thin prep Papanicolaou smear with manual screening 3 5-15 [facility] Work Phone: No Panel Informationon 06-03 POC SARS CoV-2 Antigen Negative [facility] Work Phone: MuSK ANITBODY TEST [QUEST]on 06-23-2017 MuSK ANITBODY TEST [QUEST] Normal [facility] Comment on above: Result Comment: _MuS K ANTIBODY TEST_MUSK ANTIBODY TESTReported: 06/23/2017 17:40 Status=F TEST RESULT FLAG RANGE UNITS MUSK ANTIBODY TEST see below 06/23/17.1751.Hernandez.MILR .01723-5 EHEUC IRHMNIL--------QHBGB--FCH . RANGE---INTERPRETATIONNEGATIVEThis test did not detect abnormal levels of anti-MuSKantibodies.TECHNICAL RESULTS --Interpretive Result Table INTERPRETIVE RESULT: NegativeTEST: anti-MuSKTECHNICAL RESULT: <1:10REFERENCE RANGE: Negative <1:10, Borderline 1:10, Positive>=1:20 ----COMMENTSComments: This result does not exclude a diagnosis ofMyasthenia Gravis.Recommendations: Health care providers, [facility] [phone] if you wish to speak with a [...] clinical findings,relevant history, and other laboratory data.REFERENCES1. Jeremy K, et al. (2005) COLEEN 293: 1906-14. (PMID:[id number])2. KINJAL Renee, et al. (2000) Postgrad Med 107: 211-4,220-2. (PMID: 48636843)3. Mei-Sameer S, et al. (2014) J Autoimmun 52: 90-100.(PMID: [id number])4. Evelio Vieyra et al. (2013) Autoimmun Rev 12: 931-5. (PMID:[id number])This test was developed and its analytical performancecharacteristics have been determined by [facility].It has not been cleared or approved by the U.S. Food andDrug Administration. This assay has been validated pursuantto the CLIA regulations and is used for clinical purposes.Laboratory oversight provided by Henrique Ching M.D.,Nina, CLIA license addison, [facility] (CLIA #[id number])Testing performed at:[facility] [address] [place], [place] [address]Test performed by [facility] [address] [place] [address] Oqhbdbdujb oversight provided by Henrique Ching M.D., Nina, CLIA license addison, [facility](CLIA #[id number])Test Reported by [facility],[address] [place] [address]Hajicglbess Abdi M.D., Ph.D., Director of [phone], CLIA [id number] Performed By: #### 2 [id number] ####[facility],[address] [place] [address] ACETYLCHOLINE MODULATING REC EPTOR AB[QU]on 06-22-2017 Acetaminophen mass conc Normal [facility] Comment on above: Result Comment: _ACE TYLCHOLINE MODULATING RECEPTOR AB_ACETYLCHOLINE RECEPTOR MODULATING ANTIBODYReported: 06/22/2017 15:54 Status=F TEST RESULT FLAG RANGE UNITS Acetylcholine Rec Mod Ab 10 % 06/22/17.1606.rflChataCOMPLETE.AMRR .57310-7Kiueh: % binding inhibition Reference Range: < 32% BINDING INHIBITIONThis test was developed and its analyticalperformance characteristics have been determinedby [facility]. It has not been cleared or approved [facility]. This assay has been validated pursuant to theIA regulations and is used for clinicalpurposes.Test performed by [facility] [place] [id number] Fskjodr Director: Ashtyn Sadler MD,PHD,MBATest Reported by [facility],[address] [place] [id number] Abdi M.D., Ph.D., Director of [phone], CLIA [id number] Performed By: #### 2 [id number] ####[facility],[address] [place] [address] ACETYLCHOLINE REC BIND AB [Q UEST]on 06-21-2017 Acetaminophen mass conc Normal [facility] Comment on above: Result Comment: _ACE TYLCHOLINE REC BIND AB_ACETYLCHOLINE RECEPTOR BINDING ANTIBODYReported: 06/20/2017 09:45 Status=F TEST RESULT FLAG RANGE UNITS ACETYLCHOLINE REC BINDING <0.30 <=0.30 nmol/L 06/20/17.0957.rfl.COMPLETE.AMRR .96850-9 Reference Range: Negative: <=0.30 nmol/L Equivocal: 0.31-0.49 nmol/L Positive: >=0.50 nmol/LTest Performed by [facility],[address] [place] [address]QukcjhdMarsha Abdi M.D., Ph.D., Director of [phone], CLIA [id number] Performed By: #### 2 [id number] ####[facility],[address] [place] [address] ACETYLCHOLINE RECEPTOR BLOCK ING AB [QU]on 06-21-2017 Acetaminophen mass conc Normal [facility] Comment on above: Result Comment: _ACE TYLCHOLINE REC BLOC AB_ACETYLCHOLINE RECEPTOR BLOCKING ANTIBODYReported: 06/19/2017 19:48 Status=F TEST RESULT FLAG RANGE UNITS ACETYLCHOLINE REC BLOC AB <15 <15 % inhibit 06/19/17.2000.rfl.COMPLETE.AMRR .48509-0Iskdz are % of inhibition.Test Performed by [facility] [place],[address] [place], [place] [address]MsegdmvMarsha Abdi M.D., Ph.D., Director of [phone], CLIA [id number] Performed By: #### 2 [id number] ####[facility],[address] [place], [place] [id number] Vital Signs Date Time Vital Sign Value Performing Clinician Nallely amaro 02-27-2024 11:20-0500 Body height 161 cm Kristal Mari MD Work Phone: [facility] 02-27-2024 11:20-0500 Body mass index (BMI) [Ratio] 28 kg/m2 Kristal Mari MD Work Phone: [facility] 02-27-2024 11:20-0500 Body weight 72.58 kg Kristal Mari MD Work Phone: [facility] 02-27-2024 11:20-0500 Diastolic blood pressure 74 mm[Hg] Kristal Mari MD Work Phone: [facility] 02-27-2024 11:20-0500 Systolic blood pressure 120 mm[Hg] Kristal Mari MD Work Phone: [facility] 02-01-2024 12:55-0400 Body mass index (BMI) [Ratio] 28.38 kg/m2 Efrem Moomaw HAND SPRING REPAIRER HELPER.HEALTH WORKER Work Phone: [facility] 02-01-2024 12:55-0400 Body temperature 97 [degF] Efrem Moomaw HAND SPRING REPAIRER HELPER.HEALTH WORKER Work Phone: [facility] 02-01-2024 12:55-0400 Body weight 75 kg Efrem Moomaw HAND SPRING REPAIRER HELPER.HEALTH WORKER Work Phone: [facility] 02-01-2024 12:55-0400 Diastolic blood pressure 92 mm[Hg] Efrem Moomaw HAND SPRING REPAIRER HELPER.HEALTH WORKER Work Phone: [facility] 02-01-2024 12:55-0400 Heart rate 83 /min Efrem Moomaw HAND SPRING REPAIRER HELPER.HEALTH WORKER Work Phone: [facility] 02-01-2024 12:55-0400 Respiratory rate 20 /min Efrem Moomaw HAND SPRING REPAIRER HELPER.HEALTH WORKER Work Phone: [facility] 02-01-2024 12:55-0400 SaO2% (BldA) [Mass fraction] 97 % Efrem Moomaw HAND SPRING REPAIRER HELPER.HEALTH WORKER Work Phone: [facility] 02-01-2024 12:55-0400 Systolic blood pressure 164 mm[Hg] Efrem Moomaw HAND SPRING REPAIRER HELPER.HEALTH WORKER Work Phone: [facility] 02-23-2023 11:19-0500 Body height 162.6 cm Kristal Mari MD Work Phone: [facility] 02-23-2023 11:19-0500 Body weight 69.85 kg Kristal Mari MD Work Phone: [facility] 02-23-2023 11:19-0500 Diastolic blood pressure 82 mm[Hg] Kristal Mari MD Work Phone: [facility] 02-23-2023 11:19-0500 Systolic blood pressure 132 mm[Hg] Kristal Mari MD Work Phone: [facility] 08-27-2021 09:36-0400 Body height 162.6 cm Kristal Mari MD Work Phone: [facility] 08-27-2021 09:36-0400 Body weight 74.84 kg Kristal Mari MD Work Phone: [facility] 08-27-2021 09:36-0400 Diastolic blood pressure 84 mm[Hg] Kristal Mari MD Work Phone: [facility] 08-27-2021 09:36-0400 Systolic blood pressure 126 mm[Hg] Kristal Mari MD Work Phone: [facility] 06-03-2021 07:24-0500 Body height 162.[address] Chago Abrams Work Phone: [facility] Work Phone: 06-03-2021 07:24-0500 Body mass index (BMI) [Ratio] 27.4 kg/m2 Dr. Chago Abrams Work Phone: [facility] Work Phone: 06-03-2021 07:24-0500 Body temperature 97.4 [degF] Dr. Chago Abrams Work Phone: [facility] Work Phone: 06-03-2021 07:24-0500 Body weight 72.[address] Chago Abrams Work Phone: [facility] Work Phone: 06-03-2021 07:24-0500 Diastolic blood pressure 76 mm[Hg] Dr. Chago Abrams Work Phone: [facility] Work Phone: 06-03-2021 07:24-0500 Heart rate 76 /min Dr. Chago Abrams Work Phone: [facility] Work Phone: 06-03-2021 07:24-0500 Respiratory rate 16 /min Dr. Chago Abrams Work Phone: [facility] Work Phone: 06-03-2021 07:24-0500 SaO2% (BldA) [Mass fraction] 98 % Dr. Chago Abrams Work Phone: [facility] Work Phone: 06-03-2021 07:24-0500 Systolic blood pressure 116 mm[Hg] Dr. Chago Abrams Work Phone: [facility] Work Phone: Encounters Encounter Date Encounter Type Care Provider Facility Start: 02-14-2025 End: 02-14-2025 ambulatory CHAGO ABRAMS Facility:[facility] Start: 01-31-2025 End: 01-31-2025 Emergency department patient visit Chago Abrams Facility:[facility] Start: 11-08-2024 End: 11-08-[address] Chago Abrams MD Work Phone: -Outpatient Breast Imaging Start: 11-08-2024 End: 11-08-[address] Kristal Luna MD -Outpatient Breast Imaging Work Phone: Start: 11-08-2024 End: 11-08-[address] [facility] Facility:[facility] Start: 04-12-2024 End: 04-12-2024 Subsequent hospital visit by physician [address] Comment on above: Atherosclerotic hear t disease of [place] coronary artery without angina pectoris Start: 04-12-2024 End: 04-12-2024 ambulatory [facility] Start: 04-08-2024 End: 04-08-2024 Telephone encounter Kristal Mari MD Work Phone: OB/Gynecology Comment on above: Results Start: 04-02-2024 End: 04-02-2024 [facility] Facility:[facility] Start: 03-21-2024 End: 03-21-2024 [facility] Facility:[facility] Start: 02-27-2024 End: 02-27-2024 ambulatory KRISTAL MARI Facility:[facility] Start: 02-27-2024 End: 02-27-2024 Patient encounter procedure Kristal Mari MD Work Phone: OB/Gynecology Comment on above: Encounter for gyneco logical examination (general) (routine) without abnormal findings (Primary Dx) Start: 02-27-2024 End: 02-27-2024 Patient encounter status Kristal Mari MD Work Phone: [facility] Start: 02-01-2024 End: 02-01-2024 Patient encounter procedure Efrem Mosandeew HAND SPRING REPAIRER HELPER.HEALTH WORKER Work Phone: [facility] Comment on above: Tick bite [...] encounter status Kristal Mari MD Work Phone: [facility] Start: 10-21-2022 End: 10-21-2022 ambulatory [facility] Work Phone: Start: 10-21-2022 End: 10-21-2022 Patient encounter procedure [facility] Work Phone: Start: 09-12-2022 Telephone encounter Kristal Mari MD Work Phone: OB/Gynecology Comment on above: Mammogram Order Start: 01-04-2022 Non-patient / Non-visit Dr. Anam Abrams Work Phone: [facility] Start: 01-04-2022 End: 01-04-[address] Chago Abrams Work Phone: [facility] Work Phone: Start: 01-04-2022 End: 01-04-[address] Chago Abrams Work Phone: [facility] Start: 09-17-2021 End: 09-17-[address] Chago Abrams Work Phone: [facility]-Outpatient Breast Imaging Start: 08-27-2021 End: 08-27-2021 [...] Dr. Chago Abrams Work Phone: [facility] Start: 06-03-2021 End: 06-03-[address] Chago Abrams Work Phone: [facility] Start: 06-16-2017 End: 06-16-2017 Ambulatory [facility] Procedures Date Procedure Procedure Detail Performing Clinician [...] RSV Vaccine (1 - 1-dose 75+ series) [facility] Start: 02-28-2025 End: 02-28-2025 Patient encounter procedure 02/28/2025 11:20 AM EST Office Visit OB/Gynecology [address] [place] [address] Kristal Goldman MD [address] [place] [address] Annual OB/Gynecology Comment on above: Annual Start: 11-02-2024 Screening for malign ant neoplasm of breast Mammogram Screening [facility] Start: 10-03-2024 COLOGUARD (FIT-DNA) COLOGUARD (FIT-D NA) [facility] Start: 10-03-2024 COLORECTAL CANCER SCREENING COLORECTAL CANCER SCREENING [facility] Start: 10-03-2024 Screening for malign ant neoplasm of colon [facility] Start: 02-27-2024 End: 02-27-2024 Patient encounter procedure 02/27/2024 11:20 AM EST Office Visit OB/Gynecology [address] [place] [address] Kristal Goldman MD [address] [place], [place] [address] Annual OB/Gynecology Comment on above: Annual Start: 12-10-2023 Covid-19 Vaccine ( season) Covid-19 Vaccine ( season) [facility] Start: 12-10-2023 Influenza vaccination Influenza Vacc ine (#1) [facility] Start: 10-22-2023 Mammography Mammogram Screening [facility] Start: 07-29-2023 Advance Directive Discussion Advance Directive Discussion [facility] Start: 07-29-2023 Pneumococcal Vaccine : 65+ (2 of 2 - PCV) Pneumococcal Vaccine: 65+ (2 of 2 - PCV) [facility] Start: 07-29-2023 Screening for osteoporosis Bone Density Screening [facility] Start: 12-09-2022 Covid-19 Vaccine ( season) Covid-19 Vaccine ( season) [facility] Start: 12-09-2022 Influenza vaccination C [facility] Start: 09-17-2022 Mammography MAMMOGRAM [facility] Start: 04-10-2022 DEPRESSION ASSESSMENT DEPRESSION ASS ESSMENT [facility] Start: 12-09-2021 Influenza vaccination INFLUENZ A (Season Ended) [facility] Start: 10-08-2021 COVID-19 VACCINE (5 - Booster for Moderna series) COVID-19 VACCINE (5 - Booster for Moderna series) [facility] Start: 09-11-2021 Mammography MAMMOGRAM [facility] Start: 03-20-2020 Shingrix Vaccine (2 of 2) Shingrix Vaccine (2 of 2) [facility] Start: 03-20-2020 Zoster Vaccines (2 of 2) Zoste r Vaccines (2 of 2) [facility] Start: 2018 RSV High Risk: (Elde rly (60+) or Population) (1 - Risk 60-74 years 1-dose series) RSV High Risk: (Elderly (60+) or Population) (1 - Risk 60-74 years 1-dose series) [facility] Start: 2018 RSV Vaccine (1 - 1-d ose 60+ series) RSV Vaccine (1 - 1-dose 60+ series) [facility] Start: 2008 Pneumococcal Vaccine : 50+ (2 of 2 - PCV) Pneumococcal Vaccine: 50+ (2 of 2 - PCV) [facility] Start: 2008 SHINGRIX VACCINE (1 of 2) SHINGRIX VACCINE (1 of 2) [facility] Start: 02-09-2004 Pneumococcal vaccination Pneum ococcal Vaccine (2 of 2 - PCV) [facility] Start: 07-29-2003 COLOGUARD (FIT-DNA) COLOGUARD (FIT-D NA) [facility] Start: 07-29-2003 Colonoscopy COLONOSCOPY [facility] Start: 07-29-2003 COLORECTAL CANCER SCREENING COLORECTAL CANCER SCREENING [facility] Start: 07-29-[address] COLONOGRAPHY [facility] Start: 07-29-2003 DIABETES SCREEN [facility]CREEN [facility] Start: 07-29-2003 Diabetes Screening Diabetes Screenin g [facility] Start: 07-29-2003 FECAL OCCULT BLOOD FECAL OCCULT BLOO D [facility] Start: 07-29-2003 Lipid 1996 panel - S nataly or Plasma Lipid Screening [facility] Start: 07-29-2003 Lipid panel Lipid Screening [facility] Start: 07-29-2003 LIPID SCREEN LIPID SCREEN [facility] Start: 07-29-2003 Screening for malign ant neoplasm of colon [facility] Start: 07-29-2003 [facility] Start: 1998 Screening for malign ant neoplasm of breast Mammogram [facility] Start: 1988 HPV TESTING HPV TESTING [facility] Start: 1980 DTaP/Tdap/Td Vaccine s (1 - Tdap) DTaP/Tdap/Td Vaccines (1 - Tdap) [facility] Start: 07-29-1979 PAP TESTING PAP TESTING [facility] Start: 07-29-1979 Screening for malign ant neoplasm of cervix [facility] Start: 1977 Urine microalbumin profile [facility] Start: 1976 Anxiety Screening Anxiety Screening [facility] Start: 1976 Depression Screening Depression Scre ening [facility] Start: 1976 HEPATITIS C SCREENING HEPATITIS C [facility] Start: 1976 Hepatitis C screening Hepatitis C [facility] Start: 1976 HIV SCREENING HIV SCREENING [facility] Start: 1976 HIV screening HIV Screening [facility] Start: 1970 Adult depression screening assessment DEPRESSION SCREENING [facility] Start: 07-29-1959 MMR Vaccines (1 of 1 - Standard series) MMR Vaccines (1 of 1 - Standard series) [facility] Start: 1958 Lipid panel Lipid Panel [facility] Start: 1958 Screening for malign ant neoplasm of colon [facility] Start: 1958 Screening for osteoporosis Bone Density Scan [facility] Start: 1958 Yearly Adult Physical Yearly Adult P hysical [facility] COLOGUARD COLOGUARD Lab Ro utine Encounter for screening for malignant neoplasm of colon Ordered: 08/27/2021 [facility] Work Phone: Comment on above: Ordered: 08/27/2021 End: 04-12-2024 CT for calcium scoring WO contrast and CTA W contrast IV Heart and coronary arteries [facility] Service Area Work Phone: Comment on above: Once for 1 Occurrenc es starting 04/12/2024 until 04/12/2024 End: 09-26-2022 [facility] Routine Encounter for screening mammogram for malignant neoplasm of breast 1 Occurrences starting 08/27/2021 until 09/26/2022 [facility] Work Phone: Comment on above: 1 Occurrences starti ng 08/27/2021 until 09/26/2022 End: 03-24-2024 [facility] SCRE[facility] Radiology Routine Encounter for screening mammogram for breast cancer 1 Occurrences starting 02/23/2023 until 03/24/2024 [facility] Work Phone: Comment on above: 1 Occurrences starti ng 02/23/2023 until 03/24/2024 [facility] Immunizations Immunization Date Immunization Notes Care Provider Viraj avendano 03-11-2020 Influenza, injectabl e, Madin Rena Canine Kidney, preservative free, quadrivalent Kristal Mari MD Work Phone: [facility] 03-11-2020 influenza virus vacc ine, unspecified formulation Kristal Mari MD Work Phone: [facility] 01-24-2020 zoster vaccine recombinant Kristal Mari MD Work Phone: [facility] 02-08-2003 pneumococcal polysaccharide vaccine, 23 valent Kristal Mari MD Work Phone: [facility] 02-08-[address] Bárbara Abrams Work Phone: [facility] Work Phone: 02-08-2003 pneumococcal vaccine , unspecified formulation [facility] Payers Date Payer Category Payer Medicare [id number] 2024 Unknown [id number] 2024 Self-pay [id number] 2024 Self-pay [id number] 2024 Managed Care (Private) [employer] [id number] 2024 Private Health Insurance CHELITA SHELDON PPO TPA [id number] 2024-Present [address] [place] [phone] PPO [id number] 2022 Unknown [employer]TH[employer]A BLUE [employer]E SS PPO [id number] 2022-Present [phone] [address] [place] [address] PPO [id number] 2022 Unknown [id number] 2020 Unknown [employer] A[employer] E PPO [id number] 2020-Present [phone] [address] [place] [address] PPO [id number] 2013 Unknown [id number] 2013 Unknown [id number] 1958 Unknown [id number] Unknown [id number] Unknown [id number] Unknown [id number] Unknown [id number] Unknown [id number] Social History Date Type Detail Facility Start: 06-03-2021 Tobacco smoking status NHIS Unknown if ever smoked [facility] Start: 03-25-2020 None [facility] Start: 03-25-2020 Spouse/ Signif icant Other [facility] Start: 1960 Sex Assigned At Female [facility] Start: 07-24-2020 End: 06-03-2021 Tobacco smoking status NHIS Never smoked tobacco [facility] Work Phone: Start: 07-24-2020 End: 02-01-2024 Tobacco use and exposure Smokeless tobacco non-user [facility] Work Phone: Start: 08-27-2021 End: 02-27-2024 Alcohol intake Current drinker of alcohol (finding) [facility] Start: 1960 Sex Assigned At Not on file C [facility] Start: 07-24-2021 End: 04-12-2024 Exposure to SARS-CoV-2 (event) Not sure [facility] Start: 03-18-2016 Non-smoker [facility] Start: 02-23-2023 End: 02-27-2024 History of Social function [facility] Start: 02-23-2023 End: 02-27-2024 Tobacco use panel [facility] National Score (1-100), lower number is lower risk 76 [facility] Clinical Notes 08-27-2021 to 02-14-2025 Telephone Encounter - Catherine Conti RN - 04/08/2024 1:19 PM ESTTelephone Encounter - Catherine Conti RN - 04/08/2024 1:19 PM Kristal Connelly MD - 02/27/2024 11:13 AM EST Note Date & Type Note Facility 02-14-2025 Note HNO ID: [id number] Author: ASHOK HOWELL, ? Service: ? Author Type: Physician Type: Progress Notes Filed: 02/14/2025 12:24 Note Text: Subjective The patient is a 64-year-old female with hypothyroidism and HLD presenting with a right foot bunion. The patient reports a right foot bunion present for approximately 6 months, with more rapid progression recently. She experiences pain on the plantar aspect of the right foot, particularly when pushing off the toe during ambulation. She is limited to wearing a single pair of [employer] shoes, as other footwear causes rubbing and increased pain. She is unable to walk comfortably in stocking feet. She has been using [id number]-[id number] rubber toe spacers, which provide some symptomatic relief but have not improved the deformity. PMH is notable for hypothyroidism, for which she takes Synthroid, and HLD, for which she takes Lipitor. She previously took meloxicam but has discontinued it. She reports opioid intolerance due to constipation, specifically with Percocet, and prefers to avoid opioid medications. Musculoskeletal: (+) right foot pain Objective There were no vitals taken for this visit. - Cardiovascular: Dorsalis pedis and posterior tibial pulses palpable bilaterally; capillary refill <5 seconds; skin temperature warm to cool from proximal to distal. - Skin: No open sores on feet bilaterally; skin temperature slightly cool; normal skin color; toenails 1-5 on both feet thickened with yellow discoloration. - Neurological: Protective sensation intact bilaterally. - Musculoskeletal: - Right Foot: - Moderate bunion deformity with prominent medial eminence; rubbing between first and second toes. - Pain on plantar aspect of sesamoid apparatus. - ROM: Slightly diminished at first metatarsophalangeal joint with pain on dorsiflexion and plantar flexion. Assessment AND Plan # Right foot pain (M79.671) # Hallux rigidus of right foot (M20.21) # Hallux valgus of right foot (M20.11) Progressive right hallux valgus with associated hallux rigidus and plantar sesamoid pain, confirmed by physical exam and X-ray findings of moderate bunion deformity, diminished and painful ROM of the first MTP joint, and evidence of cartilage loss, subchondral cyst formation, and arthritic changes. - Provided orthotic insert and instructed on use of a dancer pad to offload sesamoid apparatus. - Provided toe spacer to reduce friction between first and second toes. - Advised use of supportive footwear with hard soles and wide mesh toe box; avoid flexible, unsupportive shoes. - Discussed that conservative measures will not correct the deformity but may alleviate symptoms; surgical intervention is the only definitive correction. - Reviewed surgical options, including bunion correction and first MTP joint fusion, with explanation of risks, benefits, and expected outcomes. - Follow-up in 4-6 weeks to reassess symptoms and discuss further options if conservative measures are insufficient. Recording using [email or web address] software for draft documentation of the visit was discussed with the patient/authorized telephone service representative; all questions welcomed and answered. Patient/authorized telephone service representative agreed to proceed Ashok Howell DPM [facility] [place] 02-14-2025 Note HNO ID: [id number] Author: GABRIELLA BAIG LPN Service: ? Author Type: Licensed Nurse Type: Progress Notes Filed: 02/14/2025 12:24 Note Text: Per Dr. Howell, Zohreh was provided with powerstep gel inserts with dancer pad right foot , size 8, and instructed/educated in its application, wear, and care. All questions were answered, and patient was able to demonstrate competence with the necessary skills to utilize the above equipment. Gabriella Baig LPN [facility] [place] 02-14-2025 Note HNO ID: [id number] Author: DEBBIE WEISS RN Service: ? Author Type: Registered Nurse Type: Progress Notes Filed: 02/14/2025 12:24 Note Text: Patient presents with: Right Foot - New, Pain Patient presents for right foot bunion. States that it worsened in the last 6 months and has now become painful especially when walking bare foot. Makes it difficult to wear most of her shoes. Xrays done prior to appointment [facility] 02-14-2025 Note HNO ID: [id number] Author: TENISHA BLAIR RT(R) Service: ? Author Type: Technologist Type: Progress Notes Filed: 02/14/2025 08:47 Note Text: Radiology Service Progress Note PATIENT NAME: Zohreh Vazquez DATE OF SERVICE: February 14, 2025 TIME: 8:47 AM PATIENT IDENTITY VERIFICATION COMPLETED USING TWO (2) IDENTIFIERS: Name and Date of confirmed by patient verbally. FALL SCREENING: Has the patient had 2 falls in the last year or 1 fall with injury or currently using an Ambulatory Assistive Device (Walker, Cane, Wheelchair, Crutches, etc.)? No PATIENT GENDER DATA: Assigned female at . status: : No status: N/A PATIENT RELEVANT IMPLANT DATA REVIEWED: Not Applicable PATIENT PRESENTS WITH AN IMPLANTABLE OR ATTACHED PHYSICIAN PRIMARY CARE SPORTS MEDICINE: No RADIOLOGY DEPARTMENT: General X-ray: Exam(s) Completed: Lower Extremity X-Ray(s): Foot, Right and Wt. Bearing PERIPHERAL IV DATA: Not applicable SIGNED BY: Tenisha Marcelina, RT(R) February 14, 2025 8:47 AM [facility] [place] 04-08-2024 Telephone encounter Note Patient notified. She plans to contact her PCP. Catherine Conti RN [facility] 04-08-2024 Miscellaneous Notes Patient notified. She plans to contact her PCP. Catherine Conti RN Please notify patient that her BMD shows osteoporosis - recommend follow up with Endocrinology or PCP for discussion of treatment options. documented in this encounter [facility] 04-08-2024 Telephone encounter Note Please notify patient that her BMD shows osteoporosis - recommend follow up with Endocrinology or PCP for discussion of treatment options. [facility] Work Phone: 04-04-2024 Note HNO ID: [id number] Author: CATHERINE CONTI RN Service: ? Author Type: Registered Nurse Type: Progress Notes Filed: 04/04/2024 13:39 Note Text: Scan on 04/03/2024 6:12 PM by Provider, External, PA-C: Bone Density [facility] [place] 02-27-2024 Note HNO ID: [id number] Author: KRISTAL GOLDMAN MD Service: ? Author Type: Physician Type: Progress Notes Filed: 02/27/2024 13:17 Note Text: X Ray Service Engineer offered: Patient declines. Zohreh is a 63 [...] Births0 Comment: Son at age 4 from [employer] [employer] History LMP: Hysterectomy Age at Menarche: Age at First : Age at Menopause: 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 As applicable, any other physician, advance practice provider, medical student, or other health professional student that will be observing or involved in the sensitive examination for educational or training purposes was discussed with the Patient or Authorized Dust Control Engineer. The Patient or Authorized Dust Control Engineer has agreed to proceed with the sensitive [...] or sooner as needed Kristal Luna MD [facility] [place] 02-27-2024 History of Present illness Narrative X Ray Service Engineer offered: Patient declines. 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 As applicable, any other physician, advance practice provider, medical student, or other health professional student that will be observing or involved in the sensitive examination for educational or training purposes was discussed with the Patient or Authorized Dust Control Engineer. The Patient or Authorized Dust Control Engineer has agreed to proceed with the sensitive [...] Kristal Luna MD documented in this encounter [facility] 02-01-2024 History of Present illness Narrative This note was created using Metoooriter. Subjective Zohreh Vazquez is a 63 year [...] PCP. - DOXYCYCLINE MONOHYDRATE 100 MG CAPSULE Efrem Eastman APRN.CNP documented in this encounter [facility] 02-24-2023 Miscellaneous Notes Called and notified that the order was faxed along with the mammogram to [facility] yesterday. They were on the same order form. Patient will call [facility]. Catherine Conti RN Patient verified by name and . She is requesting to have an Bone Density order faxed to [facility]. Review and advise. documented in this encounter [facility] 02-23-2023 History of Present illness Narrative X Ray Service Engineer offered: Patient declines. Zohreh is a 62 year old who presents for an annual gynecologic exam with complaints, review bloodwork, concerns re blood glucose and CAD . Also concerned about hair loss. New onset breast cancer in [id number] - concerns re appropriate screening. 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 NEURO: alert and oriented x3,exam grossly non-focal EXTREMITIES: normal ASSESSMENT/PLAN: 1) Health maintenance: Pap/HPV screening no longer needed Mammogram ordered [facility] Mammogram up to date Nutrition, exercise and routine health maintenance exams reviewed. Calcium/Vitamin D supplementation information provided. Colon cancer screening: up to date with screening BMD: ordered [facility] 2) Follow up one year or sooner as needed Kristal Luna MD documented in this encounter [facility] 09-12-2022 Miscellaneous Notes Order for screening mammogram signed by DM and faxed to [facility]. Becca Hernandes RN documented in this encounter [facility] 08-27-2021 Instructions Kristal Mari MD - 08/27/2021 9:48 AM EDT The Obesity Code by Dr. Juan Goldman Life in the Fasting Jacob by Dr. 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 NEURO: alert and oriented x3,exam grossly non-focal EXTREMITIES: normal ASSESSMENT/PLAN: 1) Health maintenance: Pap/HPV screening no longer needed Mammogram ordered [facility] Nutrition, exercise and routine health maintenance exams reviewed. Colon cancer screening: cologuard ordered 2) Follow up one year or sooner as needed Kristal Luna MD X Ray Service Engineer offered: Patient declines. documented in this encounter [facility] Chief complaint+Reason for visit Narrative Reason for Visit Encounter for screening for COVID-19 [facility] Work Phone: Chief complaint+Reason for visit Narrative* Chief Complaint COVID FOR TRAVEL SCREENING Reason for Visit Encounter for screen ing for COVID-19 [facility] Work Phone: Evaluation note* Diagnosis Onset Date Resolution Status Encounter for screening for COVID-19 acute [facility] Work Phone: Evaluation note* Diagnosis Encounter for gynecological examination (general) (routine) without abnormal findings- Primary Encounter for screening mammogram for malignant neoplasm of breast Other screening mammogram Encounter for screening for malignant neoplasm of colon Special screening for malignant neoplasms, colon [facility] noteNo assessment information availableWOhio State [facility] Work Phone: Evaluation note* Diagnosis Encounter for gynecological examination (general) (routine) without abnormal findings- Primary Encounter for screening mammogram for breast cancer Establishing care with new doctor, encounter for Other reasons for seeking consultation documented in this encounter [facility] note* Diagnosis Tick bite of neck, initial encounter- Primary documented in this encounter [facility] note* Diagnosis Encounter for gynecological examination (general) (routine) without abnormal findings- Primary documented in this encounter [facility] note* Diagnosis Atherosclerotic heart disease of [place] coronary artery without angina pectoris documented in this encounter [facility] Work Phone: Reason for referral (narrative)* Diagnostic Procedure Only (Routine) - Pending Review Specialty Diagnoses / Procedures Referred By Garcia davis Referred To Contact [facility] Diagnoses Encounter for screening mammogram for malignant neoplasm of breast Procedures DOUGLAS SCREENING W HAWA SCREENING DIGITAL BREAST TOMOSYNTHESIS BI SCREENING MAMMOGRAPHY BI 2-VIEW BREAST INC CAD Kristal Goldman MD [address] [place] [address] [facility] [address] [place] [address] Referral ID Status Reason Start Date Expiration Date Visits Requested Visits Authorized [id number] Pending Review Auto-Generat ed Referral 08/27/2021 09/26/2022 1 1 [facility] for referral (narrative)No reason for referral information availableWOhio State Health System Work Phone: Reason for visit Narrative* Imaging (Routine) - Pending Review Specialty Diagnoses / Procedures Referred By Garcia davis Referred To Contact Radiology Diagnoses Atherosclerotic heart disease of [place] coronary artery without angina pectoris Procedures CT cardiac scoring wo IV contrast Chago Abrams MD [address] [place] [address] Phone: tel: fax: Referral ID Status Reason Start Date Expiration Date Visits Requested Visits Authorized [id number] Pending Review Perform Procedure 4 02/26/2025 1 1 [facility] Work Phone: Summary Purpose Family History No [...] Will Yes March 25 10:00am Power of Wage Adjuster Yes March 25, 2020 10:00am Advance Directive [...] for Procedures CONSULT TO INTERNAL MEDICINE OFFICE/OUTPATIENT [facility] 60-74 MINUTES Kristal Goldman MD [address] [place] [address] Referral ID Status Reason Start Date Expiration Date Visits Requested Visits Authorized [id number] Authorized PCP Requested Referral 3 02/23/2024 1 1 Specialty Diagnoses / Procedures Referred By Garcia davis Referred To Contact [facility] Diagnoses Encounter for screening mammogram for breast cancer Procedures DOUGLAS SCREENING W HAWA SCREENING DIGITAL BREAST TOMOSYNTHESIS BI SCREENING MAMMOGRAPHY BI 2-VIEW BREAST INC CAD Kristal Goldman MD [address] [place] [address] [facility] [address] [place] [address] Referral ID Status Reason Start Date Expiration Date Visits Requested Visits Authorized [id number] Authorized Auto-Generat ed Referral 3 03/24/2024 1 1 Additional Source Comments INFORMATION SOURCE (unrecogn ized section and content) DATE CREATED AUTHOR 09/29/2017 [facility] DATE CREATED AUTHOR AUTHOR'S ORGANIZ ATION 04/19/2024 [facility] DATE CREATED AUTHOR AUTHOR'S ORGANIZ ATION 02/12/2025 [facility] DATE CREATED AUTHOR AUTHOR'S LUX CACERES 02/16/2025 [facility] Goals (unrecognized section and content) Goals may [...] or prosecute any alcohol or drug abuse patient.[facility] the event this information is protected by the Federal Confidentiality of Alcohol and Drug Abuse Patient Records regulations: The Federal rules restrict any use of the information to criminally investigate or prosecute any alcohol or drug abuse patient.[facility] the event this information is protected by the Federal Confidentiality of Alcohol and Drug Abuse Patient Records regulations: The Federal rules restrict any use of the information to criminally investigate or prosecute any alcohol or drug abuse patient.[facility] Hospital[facility] the event this information is protected by the Federal Confidentiality of Alcohol and Drug Abuse Patient Records regulations: The Federal rules restrict any use of the information to criminally investigate or prosecute any alcohol or drug abuse patient.[facility] the event this information is protected by the Federal Confidentiality of Alcohol and Drug Abuse Patient Records regulations: The Federal rules restrict any use of the information to criminally investigate or prosecute any alcohol or drug abuse patient.[facility] the event this information is protected by the Federal Confidentiality of Alcohol and Drug Abuse Patient Records regulations: The Federal rules restrict any use of the information to criminally investigate or prosecute any alcohol or drug abuse patient.[facility] Hospital[facility] the event this information is protected by the Federal Confidentiality of Alcohol and Drug Abuse Patient Records regulations: The Federal rules restrict any use of the information to criminally investigate or prosecute any alcohol or drug abuse patient.[facility] Reason for Visit (unrecogniz ed section and content) Reason Comments Yearly Exam Reason Comments Mammogram Order Reason Comments Yearly Exam Reason Comments Orders Reason Comments Tick Tick is imbedded L s mayela of neck x 1 day Reason Comments Yearly Exam Reason Comments Results Care Teams (unrecognized sec tion and content) Facetor Relationship Specialty Start Date End Date Yogesh Nice [address] [place] [address] PCP - General 07/21/00 [employer]or Relationship Specialty Start Date End Date Yogesh Nice [address] [place] [address] PCP - General 07/21/00 Team Status: Active Member Role Status Dates Dr. Chago Abrams MD Family Provider Active Dr. Chago Abrams MD Primary Care Provider Active Team Status: Inactive Member Role Status Dates Dr. Chago Abrams MD Primary Care Provider Active Dr. Kristal Luna MD Attending Provider, [facility] Provider Active [employer] Relationship Specialty Start Date End Date Chago Abrams MD [address] [facility] [address] [place] [address] PCP - General Family Medicine 02/23/23 [employer]acetor Relationship Specialty Start Date End Date Chago Abrams MD [address] [facility] [address] [place] [address] PCP - General Family Medicine 02/23/23 [employer]or Relationship Specialty Start Date End Date Chago Abrams MD [address] [facility] [address] [place] [address] PCP - General Family Medicine 02/23/23 [employer]or Relationship Specialty Start Date End Date Chago Abrams MD [address] [facility] [address] [place] [address] PCP - General Family Medicine 02/23/23 Facetor Relationship Specialty Start Date End Date Chago Abrams MD Dani Uriarten [address] [address] PCP - General Family Medicine 04/12/24 Team [...] BE BASED ON THE PRIMARY CLINICAL RECORDS. [facility]. provides no warranty or guarantee of the accuracy or completeness of information in this document.
[2025-03-06 13:59] LABS: Hematocrit 44.2 % (37-47); Hemoglobin 14.5 g/dL (12.0-15.0); Immature Granulocytes Count 0.030 X10^3/uL (0.0-0.0); Mean Corp Hgb Conc 32.8 g/dL (32-36); Mean Corpuscular Volume 100.0 fL (81-99); Mean Platelet Vol. 8.8 fl (6.2-12.0); NRBC Flagged by Analyzer 0 % (0-5); Platelet Count 204 K/mm3 (150-450); RBC Distribution Width CV 12.8 % (11.6-14.6); RBC Distribution Width SD 47.3 fl (35.1-43.9); Red Blood Count 4.42 M/mm3 (4.2-5.4); White Blood Count 9.5 K/mm3 (4.4-11.0)
[2025-03-06] MEDS: 0.9% Normal Saline (1000mL) 1,000 ML 999 ML IV (14:08)
[2025-03-06 14:19] LABS: Color, Urine Yellow (Yellow); Glucose, Dipstick Normal (Normal); Ketone-Dipstick Negative (Negative); Leukocyte Esterase-Dipstick Negative /ul (Negative); Mucous, Urine 0 SEEN /hpf (<or=2+); Nitrite-Dipstick Negative (Negative); Occult Blood-Urine Negative /ul (Negative); Protein-Dipstick Negative (Negative); Red Blood Cells-Urine 0 SEEN /hpf (0-5); Specific Gravity, Urine 1.005 (1.002-1.030); Urine Bilirubin Dipstick Negative (Negative)
--- NOTE | 2025-03-06 14:25 | CT_ITS ---
PROCEDURE: ABDOMEN/PELVIS W IV CONT ONLY 03/06/2025 REASON FOR EXAM: ABD PAIN TECHNIQUE: Procedure Code: [id number] Modality: CT Procedure: ABDOMEN/PELVIS W IV CONT ONLY Coronal and Sagittal reconstruction series were provided. CONTRAST: 100 cc of Isovue 370 One or more dose reduction techniques were used (e.g., Automated exposure control, adjustment of the mA and/or kV according to patient size, use of iterative reconstruction technique. COMPARISON: None available. FINDINGS: Lung bases: Mild dependent atelectasis Liver: Normal size. No mass. Mild diffuse hepatic steatosis. Gallbladder: Unremarkable. No biliary ductal dilatation. Spleen: Normal size. Pancreas: Normal size without evidence of mass surrounding inflammation or ductal dilation. Adrenals: No adrenal masses. Kidneys: Few scattered right renal cysts measuring up to 7 mm. No renal calculi or hydronephrosis. Bladder: Unremarkable. Reproductive Organs: Prior hysterectomy. Adnexal regions are unremarkable. Bowel: Diffuse thickening of the sigmoid colon with surrounding fat stranding concerning for sigmoiditis, underlying mass not excluded. Moderate colonic stool burden compatible with constipation. Appendix: The appendix is not identified. There is no inflammatory process identified in the right lower quadrant to suggest appendicitis. Lymph nodes: No suspicious lymph node enlargement. Vasculature: Mild diffuse atherosclerotic calcifications are noted. No aneurysm. Peritoneum / Retroperitoneum: No free fluid or air. Bones: Degenerative changes of the spine. No acute fractures. CT/Abdomen/Pelvis W IV Cont ONLY IMPRESSION: 1. Diffuse thickening of the sigmoid colon with surrounding fat stranding jaison rning for sigmoiditis, underlying mass not excluded. 2. Moderate colonic stool burden suggesting constipation. Reading Location: [facility]
[2025-03-06 14:30] LABS: AST(SGOT) 28 U/L (<=31); Alanine Aminotransfer ALT/SGPT 31 U/L (<=34); Albumin, Serum 4.4 g/dL (3.4-4.8); Alkaline Phosphatase 49 U/L (35-104); Anion Gap 11 (5-15); BUN 15 mg/dL (4-19); BUN/Creat Ratio 18.7 RATIO (10-20); Calcium,Total 9.4 mg/dL (7.6-11.0); Carbon Dioxide 26.1 mmol/L (21.0-32.0); Chloride 101 mmol/L (98-108); Estimated Creatinine Clearance 68.25 ml/min (50-250); Globulin 2.5 g/dL (2.2-4.2); Glucose 82 mg/dL (70-99); Lipase 27 U/L (13-75); Potassium 4.2 mmol/L (3.3-5.1)
[2025-03-06 14:30] LABS: Squamous Epithelial Cells - UA 0-5 SEEN /hpf (5-10)
[2025-03-06 15:26] VITALS: BP 131/87; PULSE 79; RESP 16; O2SAT 98
[2025-03-06 16:32] VITALS: BP 131/81; PULSE 72; RESP 14; TEMP 36.6; O2SAT 99
== END 2025-03-06 16:33 | disposition home or self-care (01) ==
PROVIDERS: Emergency Provider Emergency Medicine; PCP Family Medicine; Visit Provider Emergency Medicine
DX: K52.9 Noninfective gastroenteritis and colitis, unspecified (principal); K59.00 Constipation, unspecified; D53.9 Nutritional anemia, unspecified
CPT/HCPCS: 74177; 80053; 81001; 83690; 85025; 93005; 96361; 96374; 99283; Q9967; A4216; J2405